=== PATIENT | female | born 1935 | race Caucasian/White ===

== ENCOUNTER 2016-07-13 09:39 | Inpatient (IN) | payer MEDICARE, BC ==
[2016-07-13] MEDS ORDERED: NS 0.9% 1000 ML* 1,000 ML IV ONE ×2 (10:45→22:01)
[2016-07-13] MEDS ORDERED: Pantoprazole IV* 40 MG IV ONE (10:46)
[2016-07-13] MEDS ORDERED: Ondansetron INJ* 2 MG/ML VIAL IV ONE (10:46)
[2016-07-13 11:02] LABS: Hematocrit 48 % (35-47); Hemoglobin 16.2 g/dl (12.0-16.0); Mean Corpuscular HGB Conc 34 g/dl (31-36); Mean Corpuscular Hemoglobin 32 pg (27-31); Mean Corpuscular Volume 93 fL (80-97); Mean Platelet Volume 8 um3 (7.4-10.4); Red Blood Count 5.13 10^6/ul (4.0-5.4); Red Cell Distribution Width 13 % (10.5-15); White Blood Count 17.2 10^3/ul (3.5-10.8)
--- NOTE | 2016-07-13 11:06 | RAD ---
HISTORY: Chest pain COMPARISONS: None VIEWS:1: Single frontal portable view of the chest at 10:50 AM FINDINGS: LINES AND TUBES: None. CARDIOMEDIASTINAL SILHOUETTE: The cardiomediastinal silhouette is normal for portable technique. PLEURA: The costophrenic angles are sharp. No pleural abnormalities are noted. LUNG PARENCHYMA: The lungs are clear. ABDOMEN: There is a very large hiatal hernia BONES AND SOFT TISSUES: No bone or soft tissue abnormalities are noted. IMPRESSION: THERE IS A VERY LARGE HIATAL HERNIA
[2016-07-13 11:10] LABS: Troponin I 0.02 ng/mL (<0.04)
[2016-07-13 11:11] LABS: Albumin 4.8 g/dL (3.2-5.2); BUN/Creatinine Ratio 17.2 (8-20); C Reactive Protein 5.1 mg/L (< 5.00); Calcium 10.1 mg/dL (8.6-10.3); EGFR African American 80.8 (>60); EGFR Non-African American 62.8 (>60); Globulin 3.3 g/dL (2-4); Potassium 3.5 mmol/L (3.5-5.0); Total Bilirubin 0.9 mg/dL (0.2-1.0); Total Protein 8.1 g/dL (6.4-8.9)
[2016-07-13] MEDS: Heparin VIAL(*) 5000 UNITS/ML VIAL (FIVE THOUSAND) SUBCUT SCH ×2 (14:23→23:38)
--- NOTE | 2016-07-13 17:14 | HP ---
HOSPITAL MEDICINE HISTORY AND PHYSICAL: DATE OF ADMISSION: 07/13/16 PRIMARY CARE PHYSICIAN: Dr. Fairchild. ATTENDING PHYSICIAN: Dr. Azra Weir *(dictation provided by Keshia Holder NP) . CHIEF COMPLAINT: Nausea and vomiting. HISTORY OF PRESENT ILLNESS: Ms. Lamar is a 80-year-old female with a past medical history of hypothyroidism and dementia, who presents to the hospital on 07/13/16 with concern for nausea and vomiting. Ms. Lamar states that she first began to feel unwell on Monday. She had nausea with vomiting. She was able to eat on Monday but has not had any food since Monday morning at breakfast. She is able to keep water down. She denies any fevers, chills. She denies diarrhea. The patient's daughter, who is the healthcare proxy and lives next door, helps to care for her, noted that she was quite nauseous with unrelenting vomiting and therefore brought her to the emergency room. In the emergency room, Ms Lamar is also now complaining of left sided chest pain. She states that it is on the left side of her chest and is worse with vomiting. She is not able to express if anything alleviates the pain. Her troponin is normal and her EKG does not demonstrate any ischemic changes. Ms. Lamar has a leukocytosis with a white blood cell count of 17.2, as well as the lactic acidosis with a lactic acid of 4.4. Her CRP was actually normal at 5.10. Her vitals show a mild tachycardia with heart rate running around 105. She is not febrile. Her blood pressure is stable. I also note that her chest x -ray shows a large hiatal hernia. There is no previous x-ray to compare with. PAST MEDICAL HISTORY: 1. Dementia. 2. Hypothyroidism. 3. Right and left knee surgery. 4. Foot surgery, unknown type. MEDICATIONS: 1. Cholecalciferol 2000 units p.o. daily. 2. Coenzyme Q10 200 mg p.o. daily. 3. Ibuprofen 200 mg p.o. daily. 4. Levothyroxine 125 mcg p.o. daily. 5. Namenda 5 mg p.o. b.i.d. 6. Mirtazapine 15 mg p.o. at bedtime. 7. Risperidone 2.5mg mg p.o. at bedtime. ALLERGIES: No known drug allergies. FAMILY HISTORY: The patient has dementia. Her daughter who is at the bedside states that she has had multiple siblings, who related to complications of smoking. She is not sure what took the patient's parents' lives. SOCIAL HISTORY: No report of alcohol, tobacco, or drug use. The patient lives alone but next door to her daughter, Aleida Lamar, who is the healthcare proxy. She also has assistance from a couple who live upstairs. REVIEW OF SYSTEMS: Constitutional: No fevers, no chills, no unintended weight loss. Cardiac: Positive for chest pain. No edema. Respiratory: No cough, hemoptysis, or shortness of breath. GI: Positive for nausea and vomiting. No diarrhea, no abdominal pain. : No gross hematuria or dysuria. Neuro: No focal weakness or sensory loss. Eyes: No visual complaints. ENT: No dysphagia. Musculoskeletal: No arthralgias or myalgias. Skin: No rashes or lesions. Psych: No depression or anxiety. PHYSICAL EXAMINATION GENERAL: Ms. Lamar is sitting on the bed. She appears mildly uncomfortable and states that her back hurts related to lying in the bed, but she is in no acute distress. VITAL SIGNS: Blood pressure 134/106, heart rate 103, temperature 97.4, respiratory rate 19, O2 saturation 98% on room air. LUNGS: Clear to auscultation bilaterally with diminishment on the left. HEART: S1, S2. No murmur, rub, or gallop, and regular. ABDOMEN: Soft, nontender with bowel sounds positive x4. EXTREMITIES: No cyanosis or edema. NEURO: She is alert and oriented x3, although she seems to be a little bit forgetful around details. She moves all extremities equally. There is no facial asymmetry or focal weakness. Extraocular movements are intact. SKIN: Intact. DIAGNOSTIC STUDIES/LAB DATA: Sodium 135, potassium 3.5, chloride 95, serum bicarbonate 26, BUN 15, creatinine 0.87, glucose 208, lactic acid 4.4. CRP 5.10. Troponin 0.02. WBC 17.2, hemoglobin 16.2, hematocrit 48, platelet count 307. Chest x-ray shows a large hiatal hernia. ASSESSMENT AND PLAN: Ms. Lamar is a 80-year-old female with past medical history of dementia and hypothyroidism, who presented to the hospital today on 07/13/16 with concern for nausea and vomiting. Our plans will be for observation in the hospital for the followin. Nausea and vomiting. The patient does have an associated leukocytosis, tachycardia, and lactic acidosis. I also note that her hemoglobin and hematocrit appear concentrated. I suspect this is all related to dehydration in the setting of what is likely to be gastroenteritis. She is afebrile. She is tolerating small amount of oral intake at this time. Plan will be for IV hydration, symptomatic management of her nausea with Zofran and other agents as needed, and slow advancement of diet. 2. Hiatal hernia. This is new or at least previously unidentified. The patient is not a very good historian related to her dementia, but does not report a history of heartburn. This could be contributing to her symptoms of left sided discomfort. At this point, I doubt it is contributing to her symptoms of nausea and vomiting given that these symptoms are new over the past two days. However, will continue to monitor and involve GI as needed. 3. Hyperglycemia. The patient has no history of diabetes. We will add on a hemoglobin A1c. 4. Hypothyroidism. Continue levothyroxine. We can convert to IV form if the patient is unable to tolerate oral intake. 5. Dementia. Plan for supportive care and continue Namenda. 6. DVT prophylaxis. With heparin subcu. 7. Disposition. To the medical floor. TIME SPENT: Approximately 60 minutes was spent on the admission of this patient , more than half time spent with her and her daughter at the bedside reviewing the events leading up to this hospitalization, performing the physical examination, and reviewing the plan of care. KESHIA HOLDER NP CC: Dr. Fairchild * [id number]/[facility] #: [id number] SAM
--- NOTE | 2016-07-13 18:42 | ED ---
Ketan Bee Billy, scribed for Timbo Talley MD on 07/13/16 at 1058 . Complex/Multi-Sys Presentation - HPI Summary HPI Summary: Patient is a 80 year-old female coming to [facility] for evaluation of chest pain and epigastric pain for the last 2-3 days. She has also had several episodes of nausea and vomiting. Her pain is worse after an episode of vomiting. She was unable to describe her pain when asked. Denies any changes in BM, denies any diarrhea or blood in the stool. - History Of Current Complaint Chief Complaint: EDNauseaVomitDiarrh Time Seen by Provider: 07/13/16 10:27 Hx Obtained From: Patient Onset/Duration: Gradual Onset, Lasting Days, Still Present Timing: Intermittent, Lasting: Severity Currently: Moderate Severity Initially: Moderate Location: Pain At: - chest, epigastrium Aggravating Factor(s): vomiting Alleviating Factor(s): none Associated Signs And Symptoms: Positive: Chest Pain, Nausea, Vomiting, Abdominal Pain. Negative: Diarrhea - Allergies/Home Medications Allergies/Adverse Reactions: Allergies Allergy/AdvReac Type Severity Reaction Status Date / Time No Known Allergies Allergy Verified 07/13/16 10:28 Home Medications: Home Medications Cholecalciferol [Vitamin D] 2,000 unit PO DAILY 07/13/16 [History Confirmed ] Coenzyme Q10 (Ubidecarenone) [Coq-10] 200 mg PO DAILY 07/13/16 [History Confirmed 07/13/16] Ibuprofen [Ibuprofen 200 MG] 200 mg PO BID 07/13/16 [History Confirmed 07/13/16] Levothyroxine TAB* [Synthroid 125 MCG TAB*] 125 mg PO DAILY 07/13/16 [History Confirmed 07/13/16] Memantine TAB* [Namenda TAB*] 5 mg PO BID 07/13/16 [History Confirmed 07/13/16] Mirtazapine TAB* [Remeron TAB*] 15 mg PO BEDTIME 07/13/16 [History Confirmed ] risperiDONE TAB* [Risperdal*] 2.5 mg PO BEDTIME 07/13/16 [History Confirmed ] PMH/Surg Hx/FS Hx/Imm Hx Endocrine/Hematology History: Reports: Hx Thyroid Disease Neurological History: Reports: Hx Dementia Psychiatric History: Reports: Hx Anxiety Infectious Disease History: No Infectious Disease History: Denies: Traveled Outside the [place] in Last 30 Days - Family History Known Family History: Negative: Cardiac Disease, Hypertension, Diabetes - Social History Alcohol Use: None Substance Use Type: Reports: None Smoking Status (MU): Never Smoked Tobacco Review of Systems Negative: Fever Positive: Chest Pain Positive: Abdominal Pain, Vomiting, Nausea All Other Systems Reviewed And Are Negative: Yes Physical Exam Triage Information Reviewed: Yes Vital Signs On Initial Exam: Initial Vitals Temp Pulse Resp BP Pulse Ox 97.6 F 111 16 164/100 97 07/13/16 09:40 07/13/16 09:40 07/13/16 09:40 07/13/16 09:40 07/13/16 09:40 Vital Signs Reviewed: Yes Appearance: Positive: Well-Appearing, No Pain Distress Skin: Positive: Warm, Skin Color Reflects Adequate Perfusion, Dry Head/Face: Positive: Normal Head/Face Inspection Eyes: Positive: Normal ENT: Positive: Normal ENT inspection Neck: Positive: Supple, Nontender Respiratory/Lung Sounds: Positive: Clear to Auscultation Cardiovascular: Positive: RRR Abdomen Description: Positive: Soft, Other: - Tender to the epigastrium. She is producing a small amount of dark, brown vomitus. Musculoskeletal: Positive: Normal Neurological: Positive: Normal, Sensory/Motor Intact, Alert, Oriented to Person Place, Time Psychiatric: Positive: Affect/Mood Appropriate - [place] Coma Scale Coma Scale Total: 14 Diagnostics - Vital Signs Vital Signs Temp Pulse Resp BP Pulse Ox 07/13/16 10:20 97.4 F 108 16 162/105 96 07/13/16 10:12 106 20 96 07/13/16 10:10 162/105 07/13/16 09:40 97.6 F 111 16 164/100 97 - Laboratory Lab Results: Lab Results 07/13/16 07/13/16 07/13/16 Range/Units 10:30 10:30 10:30 WBC 17.2 H (3.5-10.8) 10^3/ul RBC 5.13 (4.0-5.4) 10^6/ul Hgb 16.2 H (12.0-16.0) g/dl Hct 48 H (35-47) % MCV 93 (80-97) fL MCH 32 H (27-31) pg MCHC 34 (31-36) g/dl RDW 13 (10.5-15) % Plt Count 307 (150-450) 10^3/ul MPV 8 (7.4-10.4) um3 Neut % (Auto) 93.7 H (38-83) % Lymph % (Auto) 2.7 L (25-47) % Andrew % (Auto) 3.5 (1-9) % Eos % (Auto) 0 (0-6) % Baso % (Auto) 0.1 (0-2) % Absolute Neuts (auto) 16.1 H (1.5-7.7) 10^3/ul Absolute Lymphs (auto) 0.5 L (1.0-4.8) 10^3/ul Absolute Monos (auto) 0.6 (0-0.8) 10^3/ul Absolute Eos (auto) 0 (0-0.6) 10^3/ul Absolute Basos (auto) 0 (0-0.2) 10^3/ul Absolute Nucleated RBC 0 10^3/ul Nucleated RBC % 0 Sodium 135 (133-145) mmol/L Potassium 3.5 (3.5-5.0) mmol/L Chloride 95 L (101-111) mmol/L Carbon Dioxide 26 (22-32) mmol/L Anion Gap 14 H (2-11) mmol/L BUN 15 (6-24) mg/dL Creatinine 0.87 (0.51-0.95) mg/dL Est GFR ( Amer) 80.8 (>60) Est GFR (Non-Af Amer) 62.8 (>60) BUN/Creatinine Ratio 17.2 (8-20) Glucose 208 H (70-100) mg/dL Lactic Acid 4.4 H* (0.5-2.0) mmol/L Calcium 10.1 (8.6-10.3) mg/dL Total Bilirubin 0.90 (0.2-1.0) mg/dL AST 18 (13-39) U/L ALT 13 (7-52) U/L Alkaline Phosphatase 74 (34-104) U/L Troponin I 0.02 (<0.04) ng/mL C-Reactive Protein 5.10 H (< 5.00) mg/L Total Protein 8.1 (6.4-8.9) g/dL Albumin 4.8 (3.2-5.2) g/dL Globulin 3.3 (2-4) g/dL Albumin/Globulin Ratio 1.5 (1-3) Lipase 14 (11.0-82.0) U/L Result Diagrams: 07/13/16 10:30 07/13/16 10:30 Lab Statement: Any lab studies that have been ordered have been reviewed, and results considered in the medical decision making process. - Radiology CXR Radiology Interpretation Completed By: Radiologist - THERE IS A VERY LARGE HIATAL HERNIA - EKG 0954 EKG Interpretation: sinus tachycardia 105 bpm, no STEMI Complex Multi-Symp Course/Dx Course Of Treatment: Rocío Lamar was C/O significant epigastric pain and has a history of hiatal hernia. HerBUN is normal but I am concerned for a GI bleed. - Diagnoses Provider Diagnoses: Abdominal pain Discharge - Discharge Plan Condition: Stable Disposition: ADMITTED TO [facility] The documentation as recorded by the Ketan ocasio Billy accurately reflects the service I personally performed and the decisions made by me, Timbo Talley MD.
[2016-07-13 20:00] LABS: Urine Bacteria Absent (Absent); Urine Bilirubin Negative (Negative); Urine Glucose 1+(50 mg/dL) (Negative); Urine Nitrite Negative (Negative)
[2016-07-13] MEDS: risperiDONE TAB* 1 MG PO SCH (23:36)
[2016-07-13] MEDS: Mirtazapine TAB* 15 MG PO SCH (23:36)
[2016-07-13] MEDS: Memantine TAB* 5 MG PO SCH (23:41)
[2016-07-14] MEDS: Heparin VIAL(*) 5000 UNITS/ML VIAL (FIVE THOUSAND) SUBCUT SCH ×3 (06:07→20:24)
[2016-07-14] MEDS: Levothyroxine TAB* 125 MCG TAB PO SCH (06:29)
[2016-07-14 07:01] LABS: Hematocrit 38 % (35-47); Hemoglobin 12.6 g/dl (12.0-16.0); Mean Corpuscular HGB Conc 33 g/dl (31-36); Mean Corpuscular Hemoglobin 31 pg (27-31); Mean Corpuscular Volume 94 fL (80-97); Mean Platelet Volume 8 um3 (7.4-10.4); Red Blood Count 4.04 10^6/ul (4.0-5.4); Red Cell Distribution Width 13 % (10.5-15); White Blood Count 16.5 10^3/ul (3.5-10.8)
--- NOTE | 2016-07-14 07:07 | PN ---
Progress Note - Progress Note Note: Called by nikita MANZANO with concern for coffee ground emesis and urinary retention. Patient noted to be vomiting small amounts of coffee ground emesis with each attempt at oral intake. Plan to order a gastric occult blood. Protonix 40mg IV ordered daily. May be beneficial to involve GI tomorrow if UGI bleeding is suspected especially in setting of large hiatal hernia of unclear chronicity. As noted previously, patient's Hgb is 14. Patient plans to attempt to void a second time, if she is not succesful, plan to place a malagon catheter.
[2016-07-14] MEDS: Pantoprazole IV* 40 MG IV SCH (07:10)
[2016-07-14 07:18] LABS: BUN/Creatinine Ratio 30.3 (8-20); Calcium 8.6 mg/dL (8.6-10.3); EGFR African American 111.1 (>60); EGFR Non-African American 86.4 (>60); Potassium 3.5 mmol/L (3.5-5.0)
[2016-07-14] MEDS: Memantine TAB* 5 MG PO SCH ×2 (08:42→22:10)
[2016-07-14] MEDS: NS 0.9% 1000 ML* 1,000 ML IV SCH ×2 (13:13→23:08)
--- NOTE | 2016-07-14 13:51 | RAD ---
INDICATION: Nausea and vomiting COMPARISON: None TECHNIQUE: A single view of the abdomen is submitted. FINDINGS: Bones: There are no acute bony findings. Soft tissues: The soft tissues appear normal. The psoas margins are sharp. Bowel gas pattern: Normal Calcifications: There are no abnormal calcifications. Other: None IMPRESSION: NO ACUTE DIAGNOSTIC FINDINGS.
--- NOTE | 2016-07-14 16:58 | PN ---
Subjective Date of Service: 07/14/16 Interval History: Patient feeling very weak with nausea and vomiting. Objective Active Medications: Heparin Sodium (Porcine) (Heparin Vial(*)) 5,000 units SUBCUT Q8HR [facility] Last Admin: 07/14/16 13:03 Dose: Not Given Sodium Chloride (Ns 0.9% 1000 Ml*) 1,000 mls @ 125 mls/hr IV PER RATE [facility] Last Admin: 07/14/16 13:13 Dose: 125 mls/hr Levothyroxine Sodium (Synthroid Tab*) 125 mcg PO 0600 [facility] Last Admin: 07/14/16 06:29 Dose: 125 mcg Memantine (Namenda Tab*) 5 mg PO BID [facility] Last Admin: 07/14/16 08:42 Dose: 5 mg Mirtazapine (Remeron Tab*) 15 mg PO BEDTIME [facility] Last Admin: 07/13/16 23:36 Dose: 15 mg Ondansetron HCl (Zofran Inj*) 4 mg IV Q6H PRN PRN Reason: NAUSEA Pantoprazole Sodium (Protonix Iv*) 40 mg IV DAILY [facility] Last Admin: 07/14/16 07:10 Dose: 40 mg Risperidone (Risperdal*) 2.5 mg PO BEDTIME [facility] Last Admin: 07/13/16 23:36 Dose: 2.5 mg Vital Signs 07/13/16 07/13/16 07/13/16 18:24 20:00 23:22 Temperature 99.2 F 99.5 F Pulse Rate 109 115 Respiratory 16 16 Rate Blood Pressure 152/91 157/91 (mmHg) O2 Sat by Pulse 93 Oximetry 07/14/16 07/14/16 07/14/16 03:31 08:23 11:02 Temperature 98.4 F 99.7 F 99.8 F Pulse Rate 116 116 111 Respiratory 16 16 19 Rate Blood Pressure 146/79 147/82 164/86 (mmHg) O2 Sat by Pulse 92 91 93 Oximetry 07/14/16 07/14/16 12:50 16:08 Temperature 98.2 F 99.4 F Pulse Rate 112 Respiratory Rate Blood Pressure 142/82 (mmHg) O2 Sat by Pulse 97 Oximetry Oxygen Devices in Use Now: None Appearance: Elderly woman lying in bed weak and pale but in NAD Eyes: No Scleral Icterus Ears/Nose/Mouth/Throat: - - Dry MM Neck: No Thyroid Enlargement, Masses Respiratory: Clear to Auscultation Cardiovascular: - - S1S21 teresa Abdominal: NL Sounds; No Tenderness; No Distention, No Hepatosplenomegaly Lymphatic: No Cervical Adenopathy Extremities: No Clubbing, Cyanosis Skin: No Rash or Ulcers Neurological: Alert and Oriented x 3 Result Diagrams: 07/14/16 06:16 07/14/16 06:16 Additional Lab and Data: Lab Results 07/13/16 07/13/16 07/13/16 Range/Units 10:30 10:30 10:30 WBC 17.2 H (3.5-10.8) 10^3/ul RBC 5.13 (4.0-5.4) 10^6/ul Hgb 16.2 H (12.0-16.0) g/dl Hct 48 H (35-47) % MCV 93 (80-97) fL MCH 32 H (27-31) pg MCHC 34 (31-36) g/dl RDW 13 (10.5-15) % Plt Count 307 (150-450) 10^3/ul MPV 8 (7.4-10.4) um3 Neut % (Auto) 93.7 H (38-83) % Lymph % (Auto) 2.7 L (25-47) % Ritchie % (Auto) 3.5 (1-9) % Eos % (Auto) 0 (0-6) % Baso % (Auto) 0.1 (0-2) % Absolute Neuts (auto) 16.1 H (1.5-7.7) 10^3/ul Absolute Lymphs (auto) 0.5 L (1.0-4.8) 10^3/ul Absolute Monos (auto) 0.6 (0-0.8) 10^3/ul Absolute Eos (auto) 0 (0-0.6) 10^3/ul Absolute Basos (auto) 0 (0-0.2) 10^3/ul Absolute Nucleated RBC 0 10^3/ul Nucleated RBC % 0 Sodium 135 (133-145) mmol/L Potassium 3.5 (3.5-5.0) mmol/L Chloride 95 L (101-111) mmol/L Carbon Dioxide 26 (22-32) mmol/L Anion Gap 14 H (2-11) mmol/L BUN 15 (6-24) mg/dL Creatinine 0.87 (0.51-0.95) mg/dL Est GFR ( Amer) 80.8 (>60) Est GFR (Non-Af Amer) 62.8 (>60) BUN/Creatinine Ratio 17.2 (8-20) Glucose 208 H (70-100) mg/dL Lactic Acid 4.4 H* (0.5-2.0) mmol/L Calcium 10.1 (8.6-10.3) mg/dL Total Bilirubin 0.90 (0.2-1.0) mg/dL AST 18 (13-39) U/L ALT 13 (7-52) U/L Alkaline Phosphatase 74 (34-104) U/L Troponin I 0.02 (<0.04) ng/mL C-Reactive Protein 5.10 H (< 5.00) mg/L Total Protein 8.1 (6.4-8.9) g/dL Albumin 4.8 (3.2-5.2) g/dL Globulin 3.3 (2-4) g/dL Albumin/Globulin Ratio 1.5 (1-3) Lipase 14 (11.0-82.0) U/L Microbiology and Other Data: Microbiology 07/13/16 19:26 Gastric Occult Blood - Final Gastric Fluid Assess/Plan/Problems-Billing Assessment: 80 year old woman admitted with intractable N/V who apparently had an episode of coffe ground emesis this morning. - Patient Problems (1) Nausea & vomiting Current Visit: Yes Status: Acute Code(s): R11.2 - NAUSEA WITH VOMITING, UNSPECIFIED SNOMED Code(s): 71002635 Comment: This seems to have improved although she still feels queezy, Continue IVF, Zofran PRN. Check Flu swab. Etiology unclear. (2) Coffee ground emesis Current Visit: Yes Status: Acute Code(s): K92.0 - HEMATEMESIS SNOMED Code( s): 013860510 Comment: One episode this morning but H/H decreased (could be dilutional). Protonix ordered. GI consult. (3) Anemia Current Visit: Yes Status: Acute Code(s): D64.9 - ANEMIA, UNSPECIFIED SNOMED Code(s): 385631483 Comment: May be dilutional but could be from UGI bleed. Serial H/H. (4) Dementia Current Visit: Yes Status: Acute Code(s): F03.90 - UNSPECIFIED DEMENTIA WITHOUT BEHAVIORAL DISTURBANCE SNOMED Code(s): 20203558 Comment: Namenda. Stable. (5) Hypothyroid Current Visit: Yes Status: Acute Code(s): E03.9 - HYPOTHYROIDISM, UNSPECIFIED SNOMED Code(s): 20604619 Comment: Stable. Continue Synthroid. (6) DVT prophylaxis Current Visit: Yes Status: Acute Code(s): MIR2456 - SNOMED Code(s): 819486815 Comment: Sequential compression stockings (7) Full code status Current Visit: Yes Status: Acute Code(s): Z78.9 - OTHER SPECIFIED HEALTH STATUS SNOMED Code(s): 086845763
[2016-07-14 18:04] LABS: Hematocrit 37 % (35-47); Hemoglobin 12.5 g/dl (12.0-16.0)
[2016-07-14] MEDS: Ondansetron INJ* 2 MG/ML VIAL IV PRN (18:18)
[2016-07-14] MEDS: Mirtazapine TAB* 15 MG PO SCH (20:25)
[2016-07-14] MEDS: risperiDONE TAB* 1 MG PO SCH (20:25)
[2016-07-14] MEDS ORDERED: traMADol TAB* 50 MG PO PRN (20:48)
[2016-07-14] MEDS ORDERED: Morphine INJ* 2 MG/ML 1 ML SYRINGE IV PRN (20:48)
[2016-07-14] MEDS ORDERED: amLODIPine TAB* 5 MG PO ONE (20:49)
[2016-07-14] MEDS: Acetaminophen TAB* 325 MG PO SCH (23:04)
[2016-07-14 23:12] LABS: Hematocrit 34 % (35-47); Hemoglobin 11.5 g/dl (12.0-16.0)
--- NOTE | 2016-07-14 23:39 | CONS ---
GASTROENTEROLOGY CONSULT DATE: 07/14/16 CONSULTING PHYSICIAN: Arias Gamble REASON FOR CONSULTATION: Coffee-ground emesis and repeated nausea and vomiting since midday, 07/12/16. HISTORY: This 80-year-old woman who lives in her house, next door to her daughter Aleida (who is her proxy), started to have epigastric distress on and began to vomit the next day. Apparently, that has gone on persistently. She has not had any fever or diarrhea. Some of the vomiting was dark yesterday and in the night. She has not had any emesis in the last 12 to 14 hours. She apparently has not had a long-term history of gastrointestinal problems and has never been for workup for any problem. She does not take any GI related medications. Her daughter says that she is able to prepare her own breakfast, but otherwise has others bring food in. She has not had any GI complaints. Her file in the hospital EMR does not contain any gastrointestinal imaging tests. She had a screening colonoscopy in May 2005, which per report was normal. PAST MEDICAL HISTORY: 1. Dementia - on Namenda 2. History of anxiety - on risperidone 3. Hypothyroidism - on replacement, many years 4. Status post bunion surgery, 2000 MEDICATIONS: Outpatient: Levothyroxine 125 mcg, Namenda 5 b.i.d, Mirtazapine 15 at bedtime, Risperidone 2.5 HS Cholecalciferol 2000 units QD SOCIAL HISTORY: She is and lives in a house next door to her daughter who is her proxy. She also has a granddaughter, living in town. She does not drink or smoke. Currently her daughter says the patient can ambulate in her home without a walker, but uses one sometimes when she goes out. REVIEW OF SYSTEMS: No history of GA, arrhythmias, syncope, hemoptysis, asthma, jaundice, abdominal surgery, psoriasis, multiple sclerosis, seizures, or recent falls or fractures. PHYSICAL EXAM: General: She is an elderly woman in bed with her eyes closed, not participating in conversation unless she is directly stimulated and then she will say a few words and lapse back to being passive. She does not appear to be toxic and her skin is warm and dry. HEENT exam is otherwise unremarkable. There is no facial droop. She has no adenopathy. Lungs: Clear , though the effort is poor. Heart: Sounds normal. Breast: Exam deferred. Abdomen: Mildly rounded and likely silent. Abdomen is also quite soft, nontender. Rectal: Deferred (later bluish mildly distended hemorrhoids 2/3rds circumferential) Extremities: Show no edema. DIAGNOSTIC STUDIES/LAB DATA: White count 16.5, hemoglobin 12.6, hematocrit 38, MCV 94, and platelets 220. BUN 20 and creatinine is 0.66. LFTs yesterday normal. AST 18, ALT 13, and alk phos 74. Radiology review - chest x-ray yesterday showed a large hiatal hernia and abdominal films today showed a normal gas pattern. IMPRESSION: This 80-year-old who has had nonspecific illness over the last 2 days with malaise and then vomiting that progressed to some coffee-ground emesis about 12 hours ago. She has not had any diarrhea and has not run a fever. The stool is unremarkable per report. These all make an infection or substantial GI bleed less likely. She is known to have a large hiatal hernia though no chronic dyspeptic history. With the an unidentified stimulus could set up situation where vomiting starts and then become persisting cycle. From the moment, she has been placed empirically on Protonix and clear liquids and we could stay with that and see how her course runs over the next 18 to 24 hours. If she settles down then continuing a PPI for a few months, then possibly every other month with tapering schedule would be reasonable as opposed to pursuing invasive workup, which in that case would not likely influence the plan. [id number]/[facility] #: [id number] SAM
[2016-07-15] MEDS: Ondansetron INJ* 2 MG/ML VIAL IV PRN (00:22)
[2016-07-15 05:58] LABS: Hematocrit 34 % (35-47); Hemoglobin 11.4 g/dl (12.0-16.0); Mean Corpuscular HGB Conc 34 g/dl (31-36); Mean Corpuscular Hemoglobin 32 pg (27-31); Mean Corpuscular Volume 94 fL (80-97); Mean Platelet Volume 8 um3 (7.4-10.4); Red Blood Count 3.59 10^6/ul (4.0-5.4); Red Cell Distribution Width 13 % (10.5-15); White Blood Count 11.1 10^3/ul (3.5-10.8)
[2016-07-15 06:12] LABS: BUN/Creatinine Ratio 26.4 (8-20); Calcium 7.9 mg/dL (8.6-10.3); EGFR African American 143.1 (>60); EGFR Non-African American 111.3 (>60); Potassium 3.1 mmol/L (3.5-5.0)
[2016-07-15] MEDS: Levothyroxine TAB* 125 MCG TAB PO SCH (07:57)
[2016-07-15] MEDS: Heparin VIAL(*) 5000 UNITS/ML VIAL (FIVE THOUSAND) SUBCUT SCH ×2 (07:57→14:32)
--- NOTE | 2016-07-15 08:41 | PN ---
Subjective Date of Service: 07/15/16 Interval History: Patient seen this morning with daughter and friend at bedside. Patient still she is still having some nausea, no emesis. Seems to be tolerating clears for now. Still with some vague epigastric pain. No fever or chills. Family History: Unchanged from Admission Social History: Unchanged from Admission Past Medical History: Unchanged from Admission Objective Active Medications: Acetaminophen (Tylenol Tab*) 975 mg PO BID THIERRY Amlodipine Besylate (Norvasc Tab*) 5 mg PO DAILY THIERRY Heparin Sodium (Porcine) (Heparin Vial(*)) 5,000 units SUBCUT Q8HR THIERRY Sodium Chloride (Ns 0.9% 1000 Ml*) 1,000 mls @ 125 mls/hr IV PER RATE THIERRY Potassium Chloride (Potassium Chloride 10 Meq/50 Ml Ivpremix*) 10 meq in 50 mls @ 50 mls/hr IV Q1H THIERRY Levothyroxine Sodium (Synthroid Tab*) 125 mcg PO 0600 THIERRY Memantine (Namenda Tab*) 5 mg PO BID THIERRY Mirtazapine (Remeron Tab*) 15 mg PO BEDTIME THIERRY Morphine Sulfate (Morphine Inj (Syringe)*) 2 mg IV Q4H PRN Ondansetron HCl (Zofran Inj*) 4 mg IV Q6H PRN Pantoprazole Sodium (Protonix Iv*) 40 mg IV DAILY [facility] Risperidone (Risperdal*) 2.5 mg PO BEDTIME THIERRY Tramadol HCl (Ultram*) 50 mg PO Q6H PRN Vital Signs 07/14/16 07/14/16 07/14/16 20:13 20:40 23:34 Temperature 98.1 F 98.7 F Pulse Rate 102 109 Respiratory 20 16 16 Rate Blood Pressure 171/107 168/87 (mmHg) O2 Sat by Pulse 95 91 Oximetry 07/15/16 03:13 Temperature 98.4 F Pulse Rate 108 Respiratory 16 Rate Blood Pressure 168/91 (mmHg) O2 Sat by Pulse 92 Oximetry Oxygen Devices in Use Now: None Appearance: Elderly, F, laying in bed in NAD Eyes: No Scleral Icterus Ears/Nose/Mouth/Throat: Mucous Membranes Moist Neck: NL Appearance and Movements; NL JVP Respiratory: Symmetrical Chest Expansion and Respiratory Effort - Bronchial BS in L base, otherwise clear Cardiovascular: NL Sounds; No Murmurs; No JVD, - - Mild tachy Abdominal: - - Soft, non-distended, mild TTP in epigastric area, BS+, no rebound /guarding Extremities: No Edema Skin: No Rash or Ulcers Neurological: - - Alert, oriented, no focal deficits Result Diagrams: 07/15/16 05:31 07/15/16 05:31 Additional Lab and Data: Lab Results 07/13/16 07/13/16 07/13/16 Range/Units 10:30 10:30 10:30 WBC 17.2 H (3.5-10.8) 10^3/ul RBC 5.13 (4.0-5.4) 10^6/ul Hgb 16.2 H (12.0-16.0) g/dl Hct 48 H (35-47) % MCV 93 (80-97) fL MCH 32 H (27-31) pg MCHC 34 (31-36) g/dl RDW 13 (10.5-15) % Plt Count 307 (150-450) 10^3/ul MPV 8 (7.4-10.4) um3 Neut % (Auto) 93.7 H (38-83) % Lymph % (Auto) 2.7 L (25-47) % [place] % (Auto) 3.5 (1-9) % Eos % (Auto) 0 (0-6) % Baso % (Auto) 0.1 (0-2) % Absolute Neuts (auto) 16.1 H (1.5-7.7) 10^3/ul Absolute Lymphs (auto) 0.5 L (1.0-4.8) 10^3/ul Absolute Monos (auto) 0.6 (0-0.8) 10^3/ul Absolute Eos (auto) 0 (0-0.6) 10^3/ul Absolute Basos (auto) 0 (0-0.2) 10^3/ul Absolute Nucleated RBC 0 10^3/ul Nucleated RBC % 0 Sodium 135 (133-145) mmol/L Potassium 3.5 (3.5-5.0) mmol/L Chloride 95 L (101-111) mmol/L Carbon Dioxide 26 (22-32) mmol/L Anion Gap 14 H (2-11) mmol/L BUN 15 (6-24) mg/dL Creatinine 0.87 (0.51-0.95) mg/dL Est GFR ( Amer) 80.8 (>60) Est GFR (Non-Af Amer) 62.8 (>60) BUN/Creatinine Ratio 17.2 (8-20) Glucose 208 H (70-100) mg/dL Lactic Acid 4.4 H* (0.5-2.0) mmol/L Calcium 10.1 (8.6-10.3) mg/dL Total Bilirubin 0.90 (0.2-1.0) mg/dL AST 18 (13-39) U/L ALT 13 (7-52) U/L Alkaline Phosphatase 74 (34-104) U/L Troponin I 0.02 (<0.04) ng/mL C-Reactive Protein 5.10 H (< 5.00) mg/L Total Protein 8.1 (6.4-8.9) g/dL Albumin 4.8 (3.2-5.2) g/dL Globulin 3.3 (2-4) g/dL Albumin/Globulin Ratio 1.5 (1-3) Lipase 14 (11.0-82.0) U/L Microbiology and Other Data: Microbiology 07/13/16 19:26 Gastric Occult Blood - Final Gastric Fluid Assess/Plan/Problems-Billing Assessment: 80 year old woman admitted with intractable N/V who apparently had an episode of coffee ground emesis this morning. - Patient Problems (1) Nausea & vomiting Current Visit: Yes Comment: ?relative to hiatal hernia. Continue clears for now. Continue IVF, Zofran PRN. Flu negative. (2) Anemia Current Visit: Yes Comment: Hct stable at 34, continue to monitor. (3) HTN (hypertension) Current Visit: Yes Comment: Norvasc started evening on 07/14, continue for now , monitor BPs (4) Coffee ground emesis Current Visit: Yes Comment: Appreciate GI consult. Continue PPI, clears for now. No intervention at this time. (5) Dementia Current Visit: Yes Comment: Namenda. (6) Hypothyroid Current Visit: Yes Comment: Continue Synthroid. (7) DVT prophylaxis Current Visit: Yes Comment: Sequential compression stockings (8) Full code status Current Visit: Yes
[2016-07-15] MEDS: Pantoprazole IV* 40 MG IV SCH (08:42)
[2016-07-15] MEDS: Acetaminophen TAB* 325 MG PO SCH (08:42)
[2016-07-15] MEDS: Memantine TAB* 5 MG PO SCH (08:42)
[2016-07-15] MEDS: NS 0.9% 1000 ML* 1,000 ML IV SCH (08:52)
[2016-07-15] MEDS ORDERED: amLODIPine TAB* 5 MG PO SCH (09:00)
[2016-07-15] MEDS: KCL 10 MEQ/50 ML IVPREMIX* 10 MEQ/50 ML BAG IV SCH ×3 (10:38→14:23)
[2016-07-15 11:19] LABS: Hematocrit 31 % (35-47); Hemoglobin 10.5 g/dl (12.0-16.0)
[2016-07-15] MEDS ORDERED: Senna TAB PO SCH (13:00)
[2016-07-15] MEDS ORDERED: Docusate CAP* 100 MG PO SCH (13:00)
--- NOTE | 2016-07-15 13:29 | CONSULT ---
Consult Consult: Patient was seen and examined, please refer to full consultation report. Impression/Plan: Prolapsed internal hemorrhoids with no evidence of bleeding. Will try Anusol HC suppositories for symptomatic relief. Upper GI bleed, management per GI and medicine, likely needs an EGD for evaluation. Thank you for this consultation
[2016-07-15] MEDS ORDERED: KCL 10 MEQ/50 ML IVPREMIX* 10 MEQ/50 ML BAG ONE (14:20)
[2016-07-15] MEDS ORDERED: Midazolam* 1 MG/ML 10 ML VIAL (10 MG) ONE (16:10)
[2016-07-15] MEDS ORDERED: Meperidine SYRINGE* 50 MG/ML ONE (16:10)
--- NOTE | 2016-07-15 16:49 | CONS ---
CC: Dr. Clayton Lamar; Dr. Richards CONSULTATION REPORT: DATE OF CONSULT: 07/15/16 PATIENT OF: Dr. Clayton Lamar. REFERRED TO: Dr. Ishan Alvarez. REASON FOR CONSULT: Rectal prolapse. HISTORY OF PRESENT ILLNESS: Ms. Lamar is a pleasant 80-year-old female, who was admitted to the hospital on 07/14/16, with what appeared to be worsening nausea and vomiting. The patient presented to the emergency room yesterday with complaints of feeling unwell in general and specifically with multiple episodes of nausea and vomiting. The patient had evaluation in the emergency room and was found to have leukocytosis and also had a cardiac workup done given her recent complaints of left- sided chest pain and was found to have normal EKG with no ischemic changes. Given her ongoing nausea and vomiting and her findings of leukocytosis, the patient was admitted for further evaluation by medical staff. Upon further question of the patient, she admits that she does have occasional episodes of nausea and vomiting but denies any abdominal pain or changes in bowel habits. After she was admitted, the patient had an episode of coffee ground emesis and was found to have further decrease in her hemoglobin and hematocrit consistent with possible upper GI bleed for which Dr. Richards was asked for consultation. The patient has a significant medical history consistent for dementia and hypothyroidism. She has done very well at home and she still lives independently with her daughter helping her who lives close by. This morning, according to the patient's daughter, she had a large soft bowel movement during which she noticed small prolapse in her rectum. She denied any similar episodes in the past or any history of hemorrhoids. She also denies any bright red blood per rectum. The patient herself notes some mild discomfort in the rectal area but denies any burning sensation, significant pain, or any history of hemorrhoids in the remote past. Given her recent episode of rectal prolapse, we were asked to see the patient for further evaluation. PAST MEDICAL HISTORY: As mentioned above significant for dementia and hypothyroidism. PAST SURGICAL HISTORY: Significant for right and left total knee replacement as well as foot surgery of unknown type. CURRENT MEDICATIONS: Her medications at home include: 1. Cholecalciferol 2000 units p.o. daily. 2. Coenzyme Q10 200 mg p.o. daily. 3. Ibuprofen 200 mg p.o. daily. 4. Synthroid 125 mcg p.o. daily. 5. Namenda 5 mg p.o. b.i.d. 6. Mirtazapine 15 mg p.o. q.h.s. 7. Risperidone 2.5 mg p.o. q.h.s. ALLERGIES: She has no known drug allergies. FAMILY HISTORY: She denies any history of colorectal malignancies. SOCIAL HISTORY: The patient is a nonsmoker who denies alcohol intake. She does live independently, her daughter lives right next door, and she is the healthcare proxy. REVIEW OF SYSTEMS: See HPI, otherwise, negative. She denies any fever, chills , or recent weight loss. No headache, dizziness, or syncope. She did complain of chest pain during her admission but denies any chest pain today or shortness of breath. No cough, hemoptysis, or orthopnea. She admits to nausea and vomiting but denies any changes in her bowel habits, abdominal pain or bleeding per rectum. No flank pain, hematuria, dysuria, or urinary frequency. PHYSICAL EXAM: General: She is a pleasant elderly female who appears comfortable in bed, surrounded by her daughter and two granddaughters, and in no acute distress or discomfort at the time of consultation. Vitals: Her last set of vitals revealed temperature of 97.4, pulse of 107, respirations of 16, O2 sat of 96% on room air, blood pressure of 130/65. HEENT: Sclerae anicteric. PERRLA. EOMs intact. Oropharynx is dry, but no exudate. Neck: Supple. Trachea midline. No cervical adenopathy noted. Lungs: Clear to auscultation bilaterally. It is noted that there are some bowel sounds noted on the lower aspect of the left lung field that would be consistent with a large hiatal hernia. No rales, wheezes, or rhonchi noted. Heart: Regular rate and rhythm. Normal S1 and S2 without rubs, murmurs, or gallops. Back with normal curvature. No CVA tenderness. Abdomen: Soft and nondistended. No tenderness noted throughout the exam. There are no hernias, masses, or hepatosplenomegaly. No guarding, rigidity, or rebound tenderness noted. Extremities: Without clubbing, cyanosis, or edema. Neurologic: Grossly intact. Breast exam: Deferred at this time. Rectal Exam: Rectal exam was performed at bedside with a help of a nurse. Sphincter tone appears to be normal. There is very mild discomfort noted upon digital examination, but no apparent external hemorrhoids noted. The patient was asked to bear down and 2 moderate-sized internal hemorrhoids noted to prolapse, measuring approximately 2 cm in circumference each at the 2 o'clock and 5 o'clock position. There is no ulceration or bleeding noted. Mild tenderness was experienced upon reducing the hemorrhoids back but that was done easily as well. LABORATORY DATA: Her CBC done earlier today revealed a white count of 11,000 which is down from her leukocytosis on admission which was up to 17,000, hemoglobin and hematocrit latest value were 10.5 and 31 respectively. Her chemistry essentially was within normal limits except for a low potassium of 3.1 , which is being replaced by Medicine. IMPRESSION: An elderly female with likely longstanding history of internal hemorrhoids that were prolapsed today during a bowel movement with no evidence of lower GI bleed. PLAN: I went on and discussed with the patient and her daughter the findings of her physical exam. I do not appreciate any significant rectal prolapse at this point. I did ask the patient to bear down and strain on multiple occasions and I was able to appreciate 2 small internal hemorrhoids prolapsing and were easily reduced. There was no evidence of any lower GI bleed or rectal bleed in account to her hemorrhoids. We will treat her conservatively at this point using Anusol suppositories twice daily for symptomatic relief of hemorrhoid, swelling, and irritation. She appears to be comfortable and agreed to our management plan. We will follow her up accordingly. The patient also is being followed by GI given her most recent episode of coffee-ground emesis with possibility of upper GI bleed which I assume will eventually end up with an upper endoscopy some time later today or tomorrow. Thank you for this consultation. RICHIE SNIDER [id number]/[facility] #: [id number] SAM
[2016-07-15 19:02] LABS: Hematocrit 32 % (35-47); Hemoglobin 10.7 g/dl (12.0-16.0); Mean Corpuscular HGB Conc 33 g/dl (31-36); Mean Corpuscular Hemoglobin 32 pg (27-31); Mean Corpuscular Volume 96 fL (80-97); Mean Platelet Volume 7 um3 (7.4-10.4); Red Blood Count 3.37 10^6/ul (4.0-5.4); Red Cell Distribution Width 13 % (10.5-15); White Blood Count 10.9 10^3/ul (3.5-10.8)
[2016-07-15] MEDS ORDERED: Artificial Tear OPHTH.OINT* 3.5 GM RIGHT EYE PRN (19:07)
[2016-07-15] MEDS: Hydrocortisone SUPP* 25 MG SUPP (2.5%) PR SCH (21:49)
[2016-07-15] MEDS: Sucralfate SUSP 1 GM/10 ml 10 ML UDC PO SCH (21:49)
[2016-07-16] MEDS: NS 0.9% 1000 ML* 1,000 ML IV SCH ×3 (01:15→23:29)
[2016-07-16] MEDS: Sucralfate SUSP 1 GM/10 ml 10 ML UDC PO SCH ×4 (02:37→20:19)
[2016-07-16] MEDS: Levothyroxine INJ* 100 MCG/5 ML VIAL IV SCH (05:37)
--- NOTE | 2016-07-16 05:47 | PRO ---
DATE: 07/15/16 REFERRING PHYSICIAN: Arias Gamble PROCEDURE: Upper gastrointestinal endoscopy through to mid duodenum. INDICATION: Coffee-ground emesis with known large hiatal hernia. ENDOSCOPIST: Dr. Richards MEDICATIONS: Midazolam 5, meperidine 25 FINDINGS: She is an elderly woman, very quiet and not speaking spontaneously. She says she has some left upper quadrant distress. She had brought up some coffee- grounds once earlier today and that had happened yesterday also. Informed consent had been obtained from the patient's daughter EGD: Larynx - symmetric, limited views with some coffee-grounds initially present. Esophagus - easily entered and there is a moderate amount of coffee-ground watery secretion. It is regurgitated up and suctioned clear over a few minutes. Active suctioning was carried out in the mouth by the nurse. A large amount of coffee-grounds was suctioned up, probably 250 cc. As the scope went down the lumen there was an increasing amount of granularity and circumferential erosion and then some friability with any touch from the scope, resulting in some oozing. It would stop spontaneously. The EG junction was at about 30 with a turn to the right. It could only be seen after the washing and lavage was complete, which included suctioning out the gastric fundus. There was no stricture and no mass. Stomach - a very large hiatal hernia. Eventually a cleft where the hiatus was located was identified and the scope was manipulated down through it by a long insertion and then tip downward flexion during withdrawal. There was no active bleeding in the stomach per se. The gastric antrum appeared normal and did not have any coffee-ground material in it. Pylorus appeared normal. Duodenum - Pylorus, bulb, and second through fourth portions appeared normal. During withdrawal, the antrum was reevaluated and appeared normal. The upper stomach (which was all HH) was viewed several ways including full insertion and retroflexion. No intrinsic pathology was seen in the stomach. During withdrawal, again the eroded area tapering as one got higher in the esophagus is noted. IMPRESSION: 1. Large hiatal hernia. 2. Severe esophagitis - 3/4ths of the lumen; suspected to be mostly peptic, but probably in some part caustic from medication trapping. 3. GI bleeding - modest. The patient will be managed with continuous PPI infusion, topical Carafate, and elevation, and eventually CT scan and surgical consult. When ready to feed should be done upright and with a pureed diet. [id number]/[facility] #: [id number] SAM
[2016-07-16 07:30] LABS: Hematocrit 31 % (35-47); Hemoglobin 10.6 g/dl (12.0-16.0); Mean Corpuscular HGB Conc 34 g/dl (31-36); Mean Corpuscular Hemoglobin 32 pg (27-31); Mean Corpuscular Volume 95 fL (80-97); Mean Platelet Volume 8 um3 (7.4-10.4); Red Blood Count 3.32 10^6/ul (4.0-5.4); Red Cell Distribution Width 13 % (10.5-15); White Blood Count 8.6 10^3/ul (3.5-10.8)
[2016-07-16] MEDS: Hydrocortisone SUPP* 25 MG SUPP (2.5%) PR SCH ×2 (07:37→20:20)
[2016-07-16] MEDS: Pantoprazole IV* 40 MG IV SCH ×2 (07:37→20:20)
--- NOTE | 2016-07-16 13:28 | RAD ---
INDICATION: Vomiting, abdominal pain. COMPARISON: July 14, 2016 abdomen radiograph. July 13, 2016 chest radiograph. TECHNIQUE: Multidetector CT images were obtained from the lung apices to the iliac crests without contrast. Assessment of the viscera limited without contrast. CHEST AND ABDOMEN REPORT: Small bilateral dependent pleural effusions with associated compressive atelectasis with near complete atelectasis of the basilar segments of the bilateral lower lobes. Air bronchograms at the anteromedial and lateral basal segments of the LEFT lower lobe noted with the possibility of inflammatory infiltrate. Negative for pneumothorax. Large hiatal hernia with organoaxial gastric volvulus. Contrast extends through the upper GI to the small bowel and colon without evidence for obstruction. Suggestion of mural thickening at the stomach. No CT abnormality of the visualized small bowel loops. A few colonic diverticula are visualized without perienteric inflammatory change. Negative for ascites, free air, or hernias within the [id number]. Normal adrenal glands. Unremarkable kidneys and visualized ureters. Negative for lymphadenopathy within the [id number]. Normal diameter abdominal aorta with mild calcific plaque. Physiologic distention of the IVC. 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 Associated acquired central canal stenosis at L4-L5. CHEST AND ABDOMEN IMPRESSION: 1. Small bilateral dependent pleural effusions with associated compressive atelectasis with the large hiatal hernia contributing to atelectasis. 2. Potential inflammatory infiltrate at the LEFT lower lobe. 3. Organoaxial gastric volvulus without evidence for obstruction. Suggestion of nonspecific mural thickening at the stomach. Consider upper GI series or endoscopy for further assessment.
--- NOTE | 2016-07-16 18:03 | PN ---
Subjective Date of Service: 07/16/16 Interval History: Patient feels better today. Eating with no nausea or discomfort. Family History: Unchanged from Admission Social History: Unchanged from Admission Past Medical History: Unchanged from Admission Objective Active Medications: Artificial Tears (Lacrilube Oint*) 1 applic RIGHT EYE Q4H PRN PRN Reason: DRY EYE Hydrocortisone (Anusol Hc Supp*) 25 mg MN BID ON LICENSE OF [facility] Last Admin: 07/16/16 07:37 Dose: 25 mg Sodium Chloride (Ns 0.9% 1000 Ml*) 1,000 mls @ 100 mls/hr IV PER RATE ON LICENSE OF [facility] Last Admin: 07/16/16 12:56 Dose: 100 mls/hr Levothyroxine Sodium (Synthroid Inj*) 62.5 mcg IV 0600 ON LICENSE OF [facility] Last Admin: 07/16/16 05:37 Dose: 62.5 mcg Morphine Sulfate (Morphine Inj (Syringe)*) 2 mg IV Q4H PRN PRN Reason: PAIN - MILD Ondansetron HCl (Zofran Inj*) 4 mg IV Q6H PRN PRN Reason: NAUSEA Last Admin: 07/15/16 00:22 Dose: 4 mg Pantoprazole Sodium (Protonix Iv*) 40 mg IV Q12HR ON LICENSE OF [facility] Sucralfate (Sucralfate Susp) 1 gm PO Q6H ON LICENSE OF [facility] Last Admin: 07/16/16 12:57 Dose: 1 gm Vital Signs 07/15/16 07/15/16 07/15/16 18:56 19:00 20:00 Temperature 98.1 F 98.1 F Pulse Rate 92 92 Respiratory 15 15 16 Rate Blood Pressure 126/66 126/66 (mmHg) O2 Sat by Pulse 97 97 Oximetry 07/15/16 07/15/16 07/16/16 20:02 23:24 04:04 Temperature 98.3 F 97.8 F 99.2 F Pulse Rate 92 94 101 Respiratory 16 18 20 Rate Blood Pressure 139/79 121/70 122/64 (mmHg) O2 Sat by Pulse 96 93 91 Oximetry 07/16/16 07/16/16 07/16/16 07:17 08:00 11:42 Temperature 98.8 F 98.3 F Pulse Rate 93 101 Respiratory 16 16 16 Rate Blood Pressure 139/79 149/47 (mmHg) O2 Sat by Pulse 95 95 Oximetry 07/16/16 15:08 Temperature 98.7 F Pulse Rate 91 Respiratory 20 Rate Blood Pressure 146/79 (mmHg) O2 Sat by Pulse 99 Oximetry Oxygen Devices in Use Now: None Appearance: Elderly woman sitting up in bed in NAD Eyes: No Scleral Icterus Ears/Nose/Mouth/Throat: Mucous Membranes Moist Neck: No Thyroid Enlargement, Masses Respiratory: Clear to Auscultation Cardiovascular: - - S1S2 teersa Abdominal: NL Sounds; No Tenderness; No Distention, No Hepatosplenomegaly Lymphatic: No Cervical Adenopathy Extremities: No Clubbing, Cyanosis Skin: No Rash or Ulcers Neurological: Alert and Oriented x 3 Result Diagrams: 07/16/16 07:04 07/15/16 05:31 Additional Lab and Data: Lab Results 07/13/16 07/13/16 07/13/16 Range/Units 10:30 10:30 10:30 WBC 17.2 H (3.5-10.8) 10^3/ul RBC 5.13 (4.0-5.4) 10^6/ul Hgb 16.2 H (12.0-16.0) g/dl Hct 48 H (35-47) % MCV 93 (80-97) fL MCH 32 H (27-31) pg MCHC 34 (31-36) g/dl RDW 13 (10.5-15) % Plt Count 307 (150-450) 10^3/ul MPV 8 (7.4-10.4) um3 Neut % (Auto) 93.7 H (38-83) % Lymph % (Auto) 2.7 L (25-47) % [place] % (Auto) 3.5 (1-9) % Eos % (Auto) 0 (0-6) % Baso % (Auto) 0.1 (0-2) % Absolute Neuts (auto) 16.1 H (1.5-7.7) 10^3/ul Absolute Lymphs (auto) 0.5 L (1.0-4.8) 10^3/ul Absolute Monos (auto) 0.6 (0-0.8) 10^3/ul Absolute Eos (auto) 0 (0-0.6) 10^3/ul Absolute Basos (auto) 0 (0-0.2) 10^3/ul Absolute Nucleated RBC 0 10^3/ul Nucleated RBC % 0 Sodium 135 (133-145) mmol/L Potassium 3.5 (3.5-5.0) mmol/L Chloride 95 L (101-111) mmol/L Carbon Dioxide 26 (22-32) mmol/L Anion Gap 14 H (2-11) mmol/L BUN 15 (6-24) mg/dL Creatinine 0.87 (0.51-0.95) mg/dL Est GFR ( Amer) 80.8 (>60) Est GFR (Non-Af Amer) 62.8 (>60) BUN/Creatinine Ratio 17.2 (8-20) Glucose 208 H (70-100) mg/dL Lactic Acid 4.4 H* (0.5-2.0) mmol/L Calcium 10.1 (8.6-10.3) mg/dL Total Bilirubin 0.90 (0.2-1.0) mg/dL AST 18 (13-39) U/L ALT 13 (7-52) U/L Alkaline Phosphatase 74 (34-104) U/L Troponin I 0.02 (<0.04) ng/mL C-Reactive Protein 5.10 H (< 5.00) mg/L Total Protein 8.1 (6.4-8.9) g/dL Albumin 4.8 (3.2-5.2) g/dL Globulin 3.3 (2-4) g/dL Albumin/Globulin Ratio 1.5 (1-3) Lipase 14 (11.0-82.0) U/L Microbiology and Other Data: Microbiology 07/13/16 19:26 Gastric Occult Blood - Final Gastric Fluid Assess/Plan/Problems-Billing Assessment: 80 year old woman admitted with intractable N/V who apparently had an episode of coffee ground emesis this morning. - Patient Problems (1) Nausea & vomiting Current Visit: Yes Status: Acute Code(s): R11.2 - NAUSEA WITH VOMITING, UNSPECIFIED SNOMED Code(s): 49896935 Comment: Severe esophagitis. Appreciate GI's input. Patient already feeling better.Continue clears for now then advance to pureed diet. Continue IVF, sucralfate, Zofran PRN. Flu negative. (2) Coffee ground emesis Current Visit: Yes Status: Acute Code(s): K92.0 - HEMATEMESIS SNOMED Code( s): 750211688 Comment: See above. (3) Anemia Current Visit: Yes Status: Acute Code(s): D64.9 - ANEMIA, UNSPECIFIED SNOMED Code(s): 333519951 Comment: H/H stable. continue to monitor. (4) Dementia Current Visit: Yes Status: Acute Code(s): F03.90 - UNSPECIFIED DEMENTIA WITHOUT BEHAVIORAL DISTURBANCE SNOMED Code(s): 22857344 Comment: Namenda. (5) Hypothyroid Current Visit: Yes Status: Acute Code(s): E03.9 - HYPOTHYROIDISM, UNSPECIFIED SNOMED Code(s): 88911393 Comment: Continue Synthroid. (6) DVT prophylaxis Current Visit: Yes Status: Acute Code(s): AFX0405 - SNOMED Code(s): 248634405 Comment: Sequential compression stockings (7) Full code status Current Visit: Yes Status: Acute Code(s): Z78.9 - OTHER SPECIFIED HEALTH STATUS SNOMED Code(s): 935139397
[2016-07-17] MEDS: Sucralfate SUSP 1 GM/10 ml 10 ML UDC PO SCH ×4 (03:14→19:52)
[2016-07-17] MEDS: Levothyroxine INJ* 100 MCG/5 ML VIAL IV SCH (05:07)
[2016-07-17] MEDS: Hydrocortisone SUPP* 25 MG SUPP (2.5%) PR SCH ×2 (07:40→19:52)
[2016-07-17 07:56] LABS: Hematocrit 31 % (35-47); Hemoglobin 10.7 g/dl (12.0-16.0); Mean Corpuscular HGB Conc 35 g/dl (31-36); Mean Corpuscular Hemoglobin 32 pg (27-31); Mean Corpuscular Volume 93 fL (80-97); Mean Platelet Volume 8 um3 (7.4-10.4); Red Blood Count 3.31 10^6/ul (4.0-5.4); Red Cell Distribution Width 13 % (10.5-15); White Blood Count 8.3 10^3/ul (3.5-10.8)
[2016-07-17 08:13] LABS: Comments Flag Yes
[2016-07-17 08:14] LABS: Add Diff/Slide Review? Slide Review Added
[2016-07-17 08:19] LABS: Albumin 3.1 g/dL (3.2-5.2); BUN/Creatinine Ratio 15.7 (8-20); Calcium 8.1 mg/dL (8.6-10.3); EGFR African American 149.6 (>60); EGFR Non-African American 116.3 (>60); Globulin 2.5 g/dL (2-4); Potassium 2.8 mmol/L (3.5-5.0); Total Bilirubin 0.5 mg/dL (0.2-1.0); Total Protein 5.6 g/dL (6.4-8.9)
[2016-07-17] MEDS: NS 0.9% 1000 ML* 1,000 ML IV SCH ×2 (08:51→19:54)
[2016-07-17] MEDS: Pantoprazole IV* 40 MG IV SCH ×2 (08:51→19:52)
--- NOTE | 2016-07-17 13:51 | PN ---
Subjective Date of Service: 07/17/16 Interval History: Patient feels much better. Wants to advance diet. Family History: Unchanged from Admission Social History: Unchanged from Admission Past Medical History: Unchanged from Admission Objective Active Medications: Artificial Tears (Lacrilube Oint*) 1 applic RIGHT EYE Q4H PRN PRN Reason: DRY EYE Hydrocortisone (Anusol Hc Supp*) 25 mg [place] BID REPLACED BY [facility] Last Admin: 07/17/16 07:40 Dose: 25 mg Sodium Chloride (Ns 0.9% 1000 Ml*) 1,000 mls @ 100 mls/hr IV PER RATE REPLACED BY [facility] Last Admin: 07/17/16 08:51 Dose: 100 mls/hr Levothyroxine Sodium (Synthroid Inj*) 62.5 mcg IV 0600 REPLACED BY [facility] Last Admin: 07/17/16 05:07 Dose: 62.5 mcg Morphine Sulfate (Morphine Inj (Syringe)*) 2 mg IV Q4H PRN PRN Reason: PAIN - MILD Ondansetron HCl (Zofran Inj*) 4 mg IV Q6H PRN PRN Reason: NAUSEA Last Admin: 07/15/16 00:22 Dose: 4 mg Pantoprazole Sodium (Protonix Iv*) 40 mg IV Q12HR REPLACED BY [facility] Last Admin: 07/17/16 08:51 Dose: 40 mg Sucralfate (Sucralfate Susp) 1 gm PO Q6H REPLACED BY [facility] Last Admin: 07/17/16 13:15 Dose: 1 gm Vital Signs 07/16/16 07/16/16 07/16/16 15:08 19:30 19:43 Temperature 98.7 F 98.4 F Pulse Rate 91 94 Respiratory 20 20 18 Rate Blood Pressure 146/79 148/70 (mmHg) O2 Sat by Pulse 99 93 Oximetry 07/16/16 07/16/16 07/17/16 20:56 23:47 03:48 Temperature 98.4 F 98.4 F 98.4 F Pulse Rate 94 88 89 Respiratory 20 16 16 Rate Blood Pressure 148/70 144/57 145/74 (mmHg) O2 Sat by Pulse 93 96 96 Oximetry 07/17/16 07/17/16 07/17/16 06:42 07:39 11:09 Temperature 98.3 F 97.7 F Pulse Rate 90 85 Respiratory 18 16 16 Rate Blood Pressure 156/79 138/64 (mmHg) O2 Sat by Pulse 96 96 Oximetry Oxygen Devices in Use Now: None Appearance: Elderly woman sitting up in bed in NAD Eyes: No Scleral Icterus Ears/Nose/Mouth/Throat: Clear Oropharnyx, Mucous Membranes Moist Neck: No Thyroid Enlargement, Masses Respiratory: Clear to Auscultation Cardiovascular: - - S1S2 teresa Abdominal: NL Sounds; No Tenderness; No Distention, No Hepatosplenomegaly Lymphatic: No Cervical Adenopathy, No Axillary Adenopathy Extremities: No Edema Skin: No Rash or Ulcers Neurological: Alert and Oriented x 3 Result Diagrams: 07/17/16 07:15 07/17/16 07:15 Additional Lab and Data: Lab Results 07/13/16 07/13/16 07/13/16 Range/Units 10:30 10:30 10:30 WBC 17.2 H (3.5-10.8) 10^3/ul RBC 5.13 (4.0-5.4) 10^6/ul Hgb 16.2 H (12.0-16.0) g/dl Hct 48 H (35-47) % MCV 93 (80-97) fL MCH 32 H (27-31) pg MCHC 34 (31-36) g/dl RDW 13 (10.5-15) % Plt Count 307 (150-450) 10^3/ul MPV 8 (7.4-10.4) um3 Neut % (Auto) 93.7 H (38-83) % Lymph % (Auto) 2.7 L (25-47) % Schleicher % (Auto) 3.5 (1-9) % Eos % (Auto) 0 (0-6) % Baso % (Auto) 0.1 (0-2) % Absolute Neuts (auto) 16.1 H (1.5-7.7) 10^3/ul Absolute Lymphs (auto) 0.5 L (1.0-4.8) 10^3/ul Absolute Monos (auto) 0.6 (0-0.8) 10^3/ul Absolute Eos (auto) 0 (0-0.6) 10^3/ul Absolute Basos (auto) 0 (0-0.2) 10^3/ul Absolute Nucleated RBC 0 10^3/ul Nucleated RBC % 0 Sodium 135 (133-145) mmol/L Potassium 3.5 (3.5-5.0) mmol/L Chloride 95 L (101-111) mmol/L Carbon Dioxide 26 (22-32) mmol/L Anion Gap 14 H (2-11) mmol/L BUN 15 (6-24) mg/dL Creatinine 0.87 (0.51-0.95) mg/dL Est GFR ( Amer) 80.8 (>60) Est GFR (Non-Af Amer) 62.8 (>60) BUN/Creatinine Ratio 17.2 (8-20) Glucose 208 H (70-100) mg/dL Lactic Acid 4.4 H* (0.5-2.0) mmol/L Calcium 10.1 (8.6-10.3) mg/dL Total Bilirubin 0.90 (0.2-1.0) mg/dL AST 18 (13-39) U/L ALT 13 (7-52) U/L Alkaline Phosphatase 74 (34-104) U/L Troponin I 0.02 (<0.04) ng/mL C-Reactive Protein 5.10 H (< 5.00) mg/L Total Protein 8.1 (6.4-8.9) g/dL Albumin 4.8 (3.2-5.2) g/dL Globulin 3.3 (2-4) g/dL Albumin/Globulin Ratio 1.5 (1-3) Lipase 14 (11.0-82.0) U/L Microbiology and Other Data: Microbiology 07/13/16 19:26 Gastric Occult Blood - Final Gastric Fluid Assess/Plan/Problems-Billing Assessment: 80 year old woman admitted with intractable N/V who apparently had an episode of coffee ground emesis this morning. - Patient Problems (1) Nausea & vomiting Current Visit: Yes Status: Acute Code(s): R11.2 - NAUSEA WITH VOMITING, UNSPECIFIED SNOMED Code(s): 82869910 Comment: Severe esophagitis. Appreciate GI's input. Patient already feeling better.Advance to pureeeddiet. Continue IVF, sucralfate, Zofran PRN. Flu negative. (2) Coffee ground emesis Current Visit: Yes Status: Acute Code(s): K92.0 - HEMATEMESIS SNOMED Code( s): 653679799 Comment: See above. (3) Anemia Current Visit: Yes Status: Acute Code(s): D64.9 - ANEMIA, UNSPECIFIED SNOMED Code(s): 723619005 Comment: H/H stable. continue to monitor. (4) Dementia Current Visit: Yes Status: Acute Code(s): F03.90 - UNSPECIFIED DEMENTIA WITHOUT BEHAVIORAL DISTURBANCE SNOMED Code(s): 27882650 Comment: Namenda. (5) Hypothyroid Current Visit: Yes Status: Acute Code(s): E03.9 - HYPOTHYROIDISM, UNSPECIFIED SNOMED Code(s): 36703726 Comment: Continue Synthroid. (6) DVT prophylaxis Current Visit: Yes Status: Acute Code(s): BLQ7795 - SNOMED Code(s): 111373413 Comment: Sequential compression stockings (7) Full code status Current Visit: Yes Status: Acute Code(s): Z78.9 - OTHER SPECIFIED HEALTH STATUS SNOMED Code(s): 180766761
[2016-07-18] MEDS: Sucralfate SUSP 1 GM/10 ml 10 ML UDC PO SCH ×4 (02:21→20:34)
[2016-07-18] MEDS: NS 0.9% 1000 ML* 1,000 ML IV SCH ×2 (05:14→16:31)
[2016-07-18] MEDS: Levothyroxine INJ* 100 MCG/5 ML VIAL IV SCH (05:14)
[2016-07-18] MEDS: Hydrocortisone SUPP* 25 MG SUPP (2.5%) PR SCH ×2 (08:04→20:35)
[2016-07-18] MEDS: Pantoprazole IV* 40 MG IV SCH ×2 (08:07→22:09)
--- NOTE | 2016-07-18 12:47 | PN ---
Progress Note - Progress Note SOAP: Subjective: Reports feeling better overall, denies any complaints. No rectal pain or bleeding. Objective: Awake and alert, eating lunch, comfortable. VSS Rectal exam deferred today. Assessment: A 80 y/o female with prolapsed internal hemorrhoids, improving with conservative measures. Plan: Continue Anusol suppositories for the next week. Surgical associates will plan on periodic visit during this admission.
--- NOTE | 2016-07-18 16:14 | PN ---
Subjective Date of Service: 07/18/16 Interval History: Patient says she didnt eat as much today because she didnt like the food today. Family History: Unchanged from Admission Social History: Unchanged from Admission Past Medical History: Unchanged from Admission Objective Active Medications: Artificial Tears (Lacrilube Oint*) 1 applic RIGHT EYE Q4H PRN PRN Reason: DRY EYE Hydrocortisone (Anusol Hc Supp*) 25 mg [place] BID [facility] Last Admin: 07/18/16 08:04 Dose: 25 mg Sodium Chloride (Ns 0.9% 1000 Ml*) 1,000 mls @ 100 mls/hr IV PER RATE [facility] Last Admin: 07/18/16 05:14 Dose: 100 mls/hr Levothyroxine Sodium (Synthroid Inj*) 62.5 mcg IV 0600 [facility] Last Admin: 07/18/16 05:14 Dose: 62.5 mcg Morphine Sulfate (Morphine Inj (Syringe)*) 2 mg IV Q4H PRN PRN Reason: PAIN - MILD Ondansetron HCl (Zofran Inj*) 4 mg IV Q6H PRN PRN Reason: NAUSEA Last Admin: 07/15/16 00:22 Dose: 4 mg Pantoprazole Sodium (Protonix Iv*) 40 mg IV Q12HR [facility] Last Admin: 07/18/16 08:07 Dose: 40 mg Sucralfate (Sucralfate Susp) 1 gm PO Q6H [facility] Last Admin: 07/18/16 12:54 Dose: 1 gm Vital Signs 07/17/16 07/17/16 07/17/16 16:16 19:31 23:28 Temperature 98.4 F 98.6 F Pulse Rate 83 85 Respiratory 24 19 16 Rate Blood Pressure 150/80 144/74 (mmHg) O2 Sat by Pulse 97 95 Oximetry 07/18/16 07/18/16 07/18/16 03:46 06:16 07:19 Temperature 98.5 F 98.1 F Pulse Rate 82 84 Respiratory 16 18 20 Rate Blood Pressure 139/71 151/83 (mmHg) O2 Sat by Pulse 95 94 Oximetry 07/18/16 07/18/16 11:23 15:55 Temperature 97.5 F 98.6 F Pulse Rate 80 83 Respiratory 20 20 Rate Blood Pressure 146/75 110/80 (mmHg) O2 Sat by Pulse 96 98 Oximetry Oxygen Devices in Use Now: None Appearance: Elderly woman sitting up in bed in NAD Eyes: No Scleral Icterus Ears/Nose/Mouth/Throat: Clear Oropharnyx, Mucous Membranes Moist Neck: No Thyroid Enlargement, Masses Respiratory: Clear to Auscultation Cardiovascular: - - S1S2 teresa Abdominal: NL Sounds; No Tenderness; No Distention, No Hepatosplenomegaly Lymphatic: No Cervical Adenopathy Extremities: No Clubbing, Cyanosis Skin: No Rash or Ulcers Neurological: Alert and Oriented x 3 Result Diagrams: 07/17/16 07:15 07/17/16 07:15 Additional Lab and Data: Lab Results 07/13/16 07/13/16 07/13/16 Range/Units 10:30 10:30 10:30 WBC 17.2 H (3.5-10.8) 10^3/ul RBC 5.13 (4.0-5.4) 10^6/ul Hgb 16.2 H (12.0-16.0) g/dl Hct 48 H (35-47) % MCV 93 (80-97) fL MCH 32 H (27-31) pg MCHC 34 (31-36) g/dl RDW 13 (10.5-15) % Plt Count 307 (150-450) 10^3/ul MPV 8 (7.4-10.4) um3 Neut % (Auto) 93.7 H (38-83) % Lymph % (Auto) 2.7 L (25-47) % Crosby % (Auto) 3.5 (1-9) % Eos % (Auto) 0 (0-6) % Baso % (Auto) 0.1 (0-2) % Absolute Neuts (auto) 16.1 H (1.5-7.7) 10^3/ul Absolute Lymphs (auto) 0.5 L (1.0-4.8) 10^3/ul Absolute Monos (auto) 0.6 (0-0.8) 10^3/ul Absolute Eos (auto) 0 (0-0.6) 10^3/ul Absolute Basos (auto) 0 (0-0.2) 10^3/ul Absolute Nucleated RBC 0 10^3/ul Nucleated RBC % 0 Sodium 135 (133-145) mmol/L Potassium 3.5 (3.5-5.0) mmol/L Chloride 95 L (101-111) mmol/L Carbon Dioxide 26 (22-32) mmol/L Anion Gap 14 H (2-11) mmol/L BUN 15 (6-24) mg/dL Creatinine 0.87 (0.51-0.95) mg/dL Est GFR ( Amer) 80.8 (>60) Est GFR (Non-Af Amer) 62.8 (>60) BUN/Creatinine Ratio 17.2 (8-20) Glucose 208 H (70-100) mg/dL Lactic Acid 4.4 H* (0.5-2.0) mmol/L Calcium 10.1 (8.6-10.3) mg/dL Total Bilirubin 0.90 (0.2-1.0) mg/dL AST 18 (13-39) U/L ALT 13 (7-52) U/L Alkaline Phosphatase 74 (34-104) U/L Troponin I 0.02 (<0.04) ng/mL C-Reactive Protein 5.10 H (< 5.00) mg/L Total Protein 8.1 (6.4-8.9) g/dL Albumin 4.8 (3.2-5.2) g/dL Globulin 3.3 (2-4) g/dL Albumin/Globulin Ratio 1.5 (1-3) Lipase 14 (11.0-82.0) U/L Microbiology and Other Data: Microbiology 07/13/16 19:26 Gastric Occult Blood - Final Gastric Fluid Assess/Plan/Problems-Billing Assessment: 80 year old woman admitted with intractable N/V who apparently had an episode of coffee ground emesis this morning. - Patient Problems (1) Nausea & vomiting Current Visit: Yes Status: Acute Code(s): R11.2 - NAUSEA WITH VOMITING, UNSPECIFIED SNOMED Code(s): 65978881 Comment: Severe esophagitis. Appreciate GI's input. Patient already feeling better.Advance to soft diet. Continue IVF, sucralfate, Zofran PRN. Flu negative. (2) Coffee ground emesis Current Visit: Yes Status: Acute Code(s): K92.0 - HEMATEMESIS SNOMED Code( s): 703023827 Comment: See above. (3) Anemia Current Visit: Yes Status: Acute Code(s): D64.9 - ANEMIA, UNSPECIFIED SNOMED Code(s): 227396946 Comment: H/H stable. continue to monitor. (4) Dementia Current Visit: Yes Status: Acute Code(s): F03.90 - UNSPECIFIED DEMENTIA WITHOUT BEHAVIORAL DISTURBANCE SNOMED Code(s): 25640123 Comment: Namenda. (5) Hypothyroid Current Visit: Yes Status: Acute Code(s): E03.9 - HYPOTHYROIDISM, UNSPECIFIED SNOMED Code(s): 36337336 Comment: Continue Synthroid. (6) DVT prophylaxis Current Visit: Yes Status: Acute Code(s): UYS4472 - SNOMED Code(s): 330529337 Comment: Sequential compression stockings (7) Full code status Current Visit: Yes Status: Acute Code(s): Z78.9 - OTHER SPECIFIED HEALTH STATUS SNOMED Code(s): 537452950
[2016-07-19] MEDS: Sucralfate SUSP 1 GM/10 ml 10 ML UDC PO SCH ×4 (03:32→20:49)
[2016-07-19] MEDS: NS 0.9% 1000 ML* 1,000 ML IV SCH ×2 (04:25→15:14)
[2016-07-19] MEDS: Levothyroxine INJ* 100 MCG/5 ML VIAL IV SCH (05:47)
[2016-07-19] MEDS: Ondansetron INJ* 2 MG/ML VIAL IV PRN (09:27)
[2016-07-19] MEDS: Pantoprazole IV* 40 MG IV SCH (09:28)
[2016-07-19] MEDS: Hydrocortisone SUPP* 25 MG SUPP (2.5%) PR SCH ×2 (09:28→20:49)
[2016-07-19] MEDS: KCL 20 MEQ/100 ML IVPREMIX* 20 MEQ/100 ML BAG IV SCH ×3 (09:44→17:20)
[2016-07-19] MEDS ORDERED: Nitroglycerin 0.4 MG/HR PATCH* (10 MG) TRANSDERM SCH (12:00)
[2016-07-19] MEDS: Memantine TAB* 5 MG PO SCH (12:34)
[2016-07-19 20:25] LABS: Calcium 7.2 mg/dL (8.6-10.3); EGFR African American 153.1 (>60)
[2016-07-19 20:27] LABS: Potassium 4.9 mmol/L (3.5-5.0)
[2016-07-19] MEDS ORDERED: Mirtazapine TAB* 15 MG PO PRN (20:45)
[2016-07-19] MEDS ORDERED: Nitro Patch/OINT Remove SCH (21:00)
[2016-07-19] MEDS: Omeprazole CAP* 20 MG PO SCH (21:19)
[2016-07-20] MEDS: NS 0.9% 1000 ML* 1,000 ML IV SCH (01:32)
[2016-07-20] MEDS: Sucralfate SUSP 1 GM/10 ml 10 ML UDC PO SCH ×2 (02:42→07:53)
[2016-07-20] MEDS ORDERED: Levothyroxine TAB* 125 MCG TAB PO SCH (06:00)
--- NOTE | 2016-07-20 07:49 | DS ---
DISCHARGE SUMMARY: DATE OF ADMISSION: 07/13/16 DATE OF DISCHARGE: 07/20/16 ADMISSION DIAGNOSES: 1. Intractable nausea and vomiting. 2. Hiatal hernia. 3. Hypoglycemia. 4. Hypothyroidism. 5. Dementia. DISCHARGE DIAGNOSES: 1. Intractable nausea and vomiting. 2. Hiatal hernia. 3. Hypoglycemia. 4. Hypothyroidism. 5. Dementia. 6. Severe esophagitis. HOSPITAL COURSE: The patient is a 80-year-old woman who presented to [facility] with a chief complaint of intractable nausea and vomiting. Please see H and P for further details. The patient was admitted, hydrated, and given antiemetics. The patient had an episode of coffee-ground emesis one morning, and GI did see the patient. Surprisingly, there was no active bleeding , but there was found to be significant severe esophagitis. GI thought it could even be a pill esophagitis. She was placed on PPI and her pills were discontinued. She was initially placed on a clear-liquid diet and then she advanced to soft food. The patient improved dramatically. She was weakened by the experience, but was ready to be discharged to a skilled facility for rehab on 07/20/16. Some of her medications were reintroduced and they can be restarted if they can be ground and given to her that way. PHYSICAL EXAM ON THE DATE OF DISCHARGE: Elderly woman sitting up in bed in no acute distress. Vital Signs: Temperature 98.5 degrees, heart rate 80 beats per minute, respiratory rate 18 breaths per minute, pulse ox 91%, and blood pressure 147/77. HEENT: Normocephalic, atraumatic. Pupils equal, round, and react to light. Moist mucous membranes. Neck: Supple. No JVD, bruits, palpable thyroid, or lymphadenopathy. Chest: Clear to auscultation and percussion bilaterally. Cardiovascular Exam: S1 and S2 appreciated. Abdominal exam: Positive bowel sounds in all 4 quadrants. Soft, nontender, nondistended. Extremities: No cyanosis, clubbing or edema. +2 pulses bilaterally. Neuro: Alert and oriented x3. Moves all extremities. Skin: No rashes or abnormalities. STUDIES DONE WHILE IN THE HOSPITAL: 1. Chest x-ray, 07/13/12, impression: There is a very large hiatal hernia. 2. Abdominal x-ray, 07/14/12, impression: No acute diagnostic findings. 3. Upper gastrointestinal endoscopy to the mid duodenum, impression: Large hiatal hernia. Severe esophagitis three-fourths of the lumen suspect to be mostly peptic, but probably, in some part, caustic from medication trapping. GI bleeding, modest; the patient will be managed with continuous PPI infusion, topical Carafate, and elevation, eventual CT scan and surgical consult. When ready to feed, should be done upright with pureed diet. 4. Chest, abdomen CT, 07/16/16, impression: Small bilateral dependent pleural effusions with associated compressive atelectasis with large hiatal hernia contributing to atelectasis. Potential inflammatory infiltrate at the left lower lobe. Organoaxial gastric volvulus without evidence for obstruction, suggestive of nonspecific mural thickening at the stomach. Consider upper GI series or endoscopy for further assessment. DISCHARGE MEDICATIONS: 1. Cholecalciferol 2000 units daily. 2. Coenzyme Q10 200 mg daily. 3. Remeron 50 mg at bedtime. 4. Memantine 5 mg twice daily. 5. Levothyroxine 125 mcg daily. 6. Risperidone 2.5 mg at bedtime. 7. Sucralfate 1 g every 6 hours. 8. Omeprazole 20 mg twice daily. 9. Hydrocortisone suppository 25 mg p.o. b.i.d. 10. Artificial tears applied right eye q. 4 hours p.r.n. DISCHARGE PLAN: The patient to be discharged to [facility] tomorrow. The patient should receive physical therapy. When the patient is stronger, she should follow up with GI as well as consider follow up with surgery in case that type of intervention might be considered necessary with her severe esophagitis. TIME SPENT: Over 40 minutes were spent on this discharge, more than 25 minutes of which were spent in direct [id number] contact with the patient in evaluation, physical exam, counseling, and coordination of care. CC: Dr. Jermaine Fairchild; Dr. Geovany Richards* [id number]/[facility] #: [id number] [facility] CENTERKenton
[2016-07-20] MEDS: Hydrocortisone SUPP* 25 MG SUPP (2.5%) PR SCH (09:17)
[2016-07-20] MEDS: Memantine TAB* 5 MG PO SCH (09:18)
[2016-07-20] MEDS: Omeprazole CAP* 20 MG PO SCH (09:19)
[2016-07-20 11:12] VITALS: BP 134/77
== END 2016-07-20 12:22 | disposition swing bed (61) | DRG 392 ==
LOC: ED 09:39 → MED 12:12 → OBSVTOIN 07-14 17:00 → MEDTELE 07-15 19:07
PROVIDERS: ADMIT Hospitalist; ATTEND Internal Medicine
PROC: 0DJ08ZZ Inspection of Upper Intestinal Tract, Via Natural or Artificial Opening Endoscopic (ICD-10-PCS; principal; 2016-07-15)
DX: K20.9 Esophagitis, unspecified (principal); J90 Pleural effusion, not elsewhere classified; E87.2 Acidosis; K92.0 Hematemesis; J98.11 Atelectasis; F03.90 Unspecified dementia, unspecified severity, without behavioral disturbance, psychotic disturbance, mood disturbance, and anxiety; F41.9 Anxiety disorder, unspecified; R40.2412 Glasgow coma scale score 13-15, at arrival to emergency department; E03.9 Hypothyroidism, unspecified; K44.9 Diaphragmatic hernia without obstruction or gangrene; R73.9 Hyperglycemia, unspecified; R33.9 Retention of urine, unspecified; D64.9 Anemia, unspecified; Z96.653 Presence of artificial knee joint, bilateral; K31.89 Other diseases of stomach and duodenum; K64.2 Third degree hemorrhoids; T50.905A Adverse effect of unspecified drugs, medicaments and biological substances, initial encounter; Z84.89 Family history of other specified conditions
CPT/HCPCS: 36415; 71010; 71250; 74000; 74150; 80048; 80053; 81003; 81015; 82271; 83036; 83605; 83690; 84484; 85014; 85018; 85025; 86140; 87502; 93005; A9270-GY; G0378; J1644; J2250; J2405; J3480

== ENCOUNTER 2016-08-07 08:40 | Emergency (ER) | payer MEDICARE, BC ==
--- NOTE | 2016-08-07 09:32 | RAD ---
INDICATION: Chest pain COMPARISON: July 13, 2016 TECHNIQUE: An AP portable view obtained at 0923 hours is submitted. FINDINGS: Bones/Soft Tissues: There are no acute bony findings. Cardiomediastinal: The cardiomediastinal silhouette is normal. Lungs: Bibasal infiltrates and/or atelectasis. Pleura: Bilateral pleural effusions. Other: Very large diaphragmatic defect with herniation of stomach and bowel appearing unchanged IMPRESSION: VERY LARGE DIAPHRAGMATIC DEFECT. BASILAR LUNG ABNORMALITIES WITH SMALL BILATERAL PLEURAL EFFUSIONS WITH MILD WORSENING
--- NOTE | 2016-08-07 09:38 | RAD ---
INDICATION: Intermittent left-sided weakness COMPARISON: CT brain December 08, 2015 TECHNIQUE: Noncontrast axial source images were acquired from the skull base to the vertex. FINDINGS: Ventricles/sulci: There is cortical atrophy with compensatory dilatation of the CSF spaces. Brain parenchyma: There is periventricular and subcortical white matter change compatible with chronic ischemia. Intracranial hemorrhage:None. Extra-axial spaces: There are no abnormal extra axial fluid collections or evidence of extra-axial mass. Calvarium: There is no calvarial fracture or other calvarial abnormality. Scalp: There is no evidence of scalp or extracalvarial soft tissue abnormality. Paranasal sinuses/mastoid: The paranasal sinuses and mastoid air cells are clear. Other: None. IMPRESSION: CORTICAL ATROPHY WITH CHRONIC MICROVASCULAR ISCHEMIC CHANGES. NO ACUTE FINDINGS.
[2016-08-07 09:55] LABS: Hematocrit 36 % (35-47); Hemoglobin 11.7 g/dl (12.0-16.0); Mean Corpuscular HGB Conc 33 g/dl (31-36); Mean Corpuscular Hemoglobin 31 pg (27-31); Mean Corpuscular Volume 94 fL (80-97); Mean Platelet Volume 8 um3 (7.4-10.4); Red Blood Count 3.78 10^6/ul (4.0-5.4); Red Cell Distribution Width 14 % (10.5-15); White Blood Count 9.3 10^3/ul (3.5-10.8)
[2016-08-07 10:24] LABS: ALT 22 U/L (7-52); Albumin 3.8 g/dL (3.2-5.2); Alkaline Phosphatase 136 U/L (34-104); BUN/Creatinine Ratio 15.9 (8-20); Blood Urea Nitrogen 10 mg/dL (6-24); CO2 Carbon Dioxide 22 mmol/L (22-32); Calcium 9.5 mg/dL (8.6-10.3); Chloride 98 mmol/L (101-111); EGFR African American 117.2 (>60); EGFR Non-African American 91.2 (>60); Glucose 104 mg/dL (70-100); Sodium 131 mmol/L (133-145); Total Protein 7.8 g/dL (6.4-8.9)
[2016-08-07 10:27] LABS: Troponin I 0.01 ng/mL (<0.04)
[2016-08-07 10:39] LABS: Urine Bacteria Absent (Absent); Urine Bilirubin Negative (Negative); Urine Glucose Negative (Negative); Urine Nitrite Negative (Negative)
[2016-08-07] MEDS ORDERED: NS 0.9% 1000 ML* 1,000 ML IV ONE (10:50)
[2016-08-07 11:07] LABS: T4 12.05 mcg/mL (6.09-12.23); TSH (Thyroid Stimulating Horm) 0.89 mcIU/mL (0.34-5.60)
[2016-08-07 12:33] LABS: Magnesium 1.9 mg/dL (1.9-2.7)
[2016-08-07 13:17] VITALS: BP 140/79
--- NOTE | 2016-08-07 16:13 | ED ---
Ketan Bee Billy, scribed for Mirza Sanchez MD on 08/07/16 at 0910 . HPI Chest Pain - HPI Summary HPI Summary: Patient is a 80 year-old female coming to [facility] for evaluation of chest pain since 0800 today. Per family, patient has been feeling generally weak, as well, over the last 3 days. Patient and family deny noticing any coughing, wheezing, or diarrhea. The patient recently left rehab for treatment of esophageal bleeding; patient has not had any further exacerbation or recurrence of such symptoms. They also report that she has had a recent UTI. - History of Current Complaint Chief Complaint: EDChestPainROMI Time Seen by Provider: 08/07/16 09:03 Hx Obtained From: Patient, Family/Net Lead Architect Time of Onset: 08:00 Timing: Constant Initial Severity: Moderate Current Severity: Moderate Pain Intensity: 4 Pain Scale Used: 0-10 Numeric Chest Pain Radiates: No Aggravating Factor(s): Nothing Alleviating Factor(s): Nothing Associated Signs and Symptoms: Positive: Chest Pain. Negative: Cough - Additional Pertinent History Primary Care Physician: OSITO - Allergy/Home Medications Allergies/Adverse Reactions: Allergies Allergy/AdvReac Type Severity Reaction Status Date / Time No Known Allergies Allergy Verified 07/13/16 10:28 PMH/Surg Hx/FS Hx/Imm Hx Endocrine/Hematology History: Reports: Hx Thyroid Disease Cardiovascular History: Reports: Hx Hypertension GI History: Reports: Hx Gastroesophageal Reflux Disease, Hx Hiatal Hernia Musculoskeletal History: Reports: Other Musculoskeletal History - weakness, orthopedic surgeries Bilateral Knee Replacement Sensory History: Reports: Hx Cataracts - R eye Denies: Hx Contacts or Glasses, Hx Hearing Aid Opthamlomology History: Reports: Hx Cataracts - R eye Denies: Hx Contacts or Glasses Neurological History: Reports: Hx Dementia Psychiatric History: Reports: Hx Anxiety - Surgical History Surgery Procedure, Year, and Place: Bilateral knee replacement, bunion surgery Hx Anesthesia Reactions: No Infectious Disease History: No Infectious Disease History: Denies: Traveled Outside the [place] in Last 30 Days - Family History Known Family History: Negative: Cardiac Disease, Hypertension, Diabetes - Social History Alcohol Use: None Substance Use Type: Reports: None Smoking Status (MU): Never Smoked Tobacco Review of Systems Positive: Chest Pain Negative: Cough Negative: Diarrhea All Other Systems Reviewed And Are Negative: Yes Physical Exam - Summary Physical Exam Summary: VITAL SIGNS: Reviewed. GENERAL: Patient is a well developed and nourished female who is lying comfortable in the stretcher. Patient is not in any acute respiratory distress. HEAD AND FACE: No signs of trauma. No ecchymosis, hematomas or skull depressions. No sinus tenderness. EYES: PERRLA, EOMI x 2, No injected conjunctiva, no nystagmus. No photophobia. EARS: Hearing grossly intact. Ear canals and tympanic membranes are within normal limits. MOUTH: Oropharynx within normal limits. NECK: Supple, trachea is midline, no adenopathy, no JVD, no carotid bruit, no c- spine tenderness, neck with full ROM. No meningeal signs, no Kernig's or brudzinskis signs. CHEST: Symmetric, no tenderness at palpation LUNGS: Clear to auscultation bilaterally. No wheezing or crackles. CVS: Regular rate and rhythm, S1 and S2 present, no murmurs or gallops appreciated. ABDOMEN: Soft, non-tender. No signs of distention. No rebound no guarding, and no masses palpated. Bowel sounds are normal. EXTREMITIES: FROM in all major joints, no edema, no cyanosis or clubbing. NEURO: Alert and oriented x 3. No acute neurological deficits. Speech is normal and follows commands. SKIN: Dry and warm Triage Information Reviewed: Yes Vital Signs On Initial Exam: Initial Vitals Temp Pulse Resp BP Pulse Ox 98.7 F 104 14 113/60 100 08/07/16 08:43 08/07/16 08:43 08/07/16 08:43 08/07/16 08:43 08/07/16 08:43 Vital Signs Reviewed: Yes Diagnostics - Vital Signs Vital Signs Temp Pulse Resp BP Pulse Ox 08/07/16 08:47 98.1 F 104 14 107/56 100 08/07/16 08:43 98.7 F 104 14 113/60 100 - Laboratory Result Diagrams: 08/07/16 09:40 08/07/16 12:15 Lab Statement: Any lab studies that have been ordered have been reviewed, and results considered in the medical decision making process. - Radiology CXR Radiology Interpretation Completed By: Radiologist - VERY LARGE DIAPHRAGMATIC DEFECT. BASILAR LUNG ABNORMALITIES WITH SMALL BILATERAL PLEURAL EFFUSIONS WITH MILD WORSENING - CT Brain CT Interpretation Completed By: Radiologist - CORTICAL ATROPHY WITH CHRONIC MICROVASCULAR ISCHEMIC CHANGES. NO ACUTE FINDINGS. - EKG 0859 EKG Interpretation: sinus tachycardia 101 bpm, no STEMI, low voltage EKG Re-Evaluation - Re-Evaluation First Eval Re-Evaluation Time: 11:39 Comment: Labs and test results reviewed. Chest Pain Course/Dx - Course Assessment/Plan: Patient is a 80 year-old female coming to [facility] for evaluation of chest pain since 0800 today. Per family, patient has been feeling generally weak, as well, over the last 3 days. Patient and family deny noticing any coughing, wheezing, or diarrhea. The patient recently left rehab for treatment of esophageal bleeding; patient has not had any further exacerbation or recurrence of such symptoms. They also report that she has had a recent UTI. Bloodwork WNL except for Hgb of 11.7. Sodium 131 and glucose 104. UA shows no UTI. CT brain shows no acute intracranial pathology. CXR shows very large diaphragmatic defect, basilar lung abnormalities with small bilateral pleural effusions with mild worsening. In the ED course, the patient was given IV fluids for hydration and actually she reports that she feels better. She is able to ambulate and walk. Patient's HR increased when she was moving however she continue to have an O2 sat of 96-98%, therefore she is not hypoxic and she denies any SOB. By wells criteria she scores only 1.5% which is low probability for PE. I discussed these findings and test results with her daughters, and they agree to take the patient home to follow up with PCP. She is A&Ox3, hemodynamically stable. They were instructed to return to the ED if she develops any SOB, palpitations, chest pain, feeling like she is going to pass out. Patient nad her daughters agree and understand. Before discahrge when she is at rest her HR fluctuates between 90 to 98. When she moves increase to 96 to 107 BPM. This can be possible to dehydration however if symptoms worsen she should return to the ED. Plan of care was discussed with the patient and understands and agrees. All questions were answered at patient satisfaction. There were no further complaints or concerns. Lung exam before discharge: CTA B /L. Good air exchange. No wheezing or crackles heard. CVS: S1 and S2 present. No murmurs appreciated. Patient is alert and oriented x 3. Patient is hemodynamically stable. Patient will be discharged home with follow up PCP in the next 2-3 days - Chest Pain Differential Diagnosis/HQI/PQRI: Acute ID, ACS, Angina, CHF, Chest Wall, GI Disease, Lower Respiratory Infection, Pulmonary Edema - Diagnoses Provider Diagnoses: Weakness Discharge - Discharge Plan Condition: Stable Disposition: HOME Patient Education Materials: Weakness (ED) Referrals: Jermaine Fairchild DO [Primary Care Provider] - The documentation as recorded by the Ketan ocasio Billy accurately reflects the service I personally performed and the decisions made by Daniel motley Walter, MD.
== END 2016-08-07 13:17 | disposition home or self-care (01) ==
LOC: ED 08:40
DX: R53.1 Weakness (principal); R07.9 Chest pain, unspecified
CPT/HCPCS: 36415; 70450; 71010; 80053; 81003; 81015; 82553; 83605; 83735; 83880; 84436; 84443; 84484; 85025; 85730; 87086; 93005; 99283

== ENCOUNTER 2016-10-16 15:22 | Inpatient (IN) | payer MEDICARE, BC ==
[2016-10-16] MEDS ORDERED: NS 0.9% 1000 ML* 1,000 ML IV ONE (17:33)
[2016-10-16] MEDS ORDERED: Ondansetron INJ* 2 MG/ML VIAL IV ONE (17:33)
[2016-10-16] MEDS ORDERED: Morphine INJ* 4 MG/ML 1 ML SYRINGE IV ONE (17:33)
[2016-10-16 18:32] LABS: Hematocrit 42 % (35-47); Hemoglobin 13.8 g/dl (12.0-16.0); Mean Corpuscular HGB Conc 33 g/dl (31-36); Mean Corpuscular Hemoglobin 28 pg (27-31); Mean Corpuscular Volume 86 fL (80-97); Mean Platelet Volume 8 um3 (7.4-10.4); Red Blood Count 4.88 10^6/ul (4.0-5.4); Red Cell Distribution Width 15 % (10.5-15); White Blood Count 13.6 10^3/ul (3.5-10.8)
[2016-10-16 18:37] LABS: Albumin 4.2 g/dL (3.2-5.2); BUN/Creatinine Ratio 19.3 (8-20); C Reactive Protein 19.14 mg/L (< 5.00); Calcium 9.9 mg/dL (8.6-10.3); EGFR African American 79.7 (>60); Globulin 3.7 g/dL (2-4); Potassium 3.2 mmol/L (3.5-5.0); Total Bilirubin 0.6 mg/dL (0.2-1.0); Total Protein 7.9 g/dL (6.4-8.9)
[2016-10-16] MEDS ORDERED: Iodixanol* (CONTRAST) 320 MG/ML 100 ML SDV IV ONE (19:17)
[2016-10-16] MEDS ORDERED: Labetalol IV* 5 MG/ML 20 ML VIAL IV PUSH ONE (21:26)
--- NOTE | 2016-10-16 22:02 | RAD ---
CLINICAL HISTORY: Emesis and low abdominal pain since the previous day COMPARISON: CTA of the chest and abdomen dated July 16, 2016 TECHNIQUE: Contrast enhanced CT examination of the abdomen and pelvis from the lung bases through the initial tuberosities. The patient received 80 mL Visipaque 320 intravenously prior to imaging.The patient received oral contrast as well prior to imaging. FINDINGS: VISUALIZED LUNG BASES: There is compressive atelectasis of the left lower lobe due to compression by the massively dilated intrathoracic stomach. Otherwise the visualized lung bases are grossly clear. There is no pleural effusion. ABDOMEN AND PELVIS: Either due to elevation of the left hemidiaphragm or due to a massively enlarged hiatal hernia at least 50% of the fluid-filled stomach is located at the base of the left hemithorax. The gastroduodenal junction appears to have herniated above and anterior to the right diaphragmatic yudith (image 18 of 96) trying at least the first if not the second portion of the duodenum across the midline and into the large diaphragmatic hernia. This is causing obstruction with the appearance of obstruction at the gastroduodenal junction. The body of the stomach and perhaps the gastric fundus appears to be displaced inferiorly into the left upper quadrant. Distal wrist the small bowel is mostly decompressed. The gas and stool-filled colon is normal in appearance. There are scattered rectosigmoid diverticula. The liver, spleen, pancreas and adrenal glands are grossly normal in appearance. The gallbladder is normal. The kidneys are normal in appearance without focal mass, calcification or signs of hydronephrosis. The urinary bladder measures 17 cm in the cephalocaudal projection and 12.1 x 10.1 cm in the axial plane yielding an approximate volume of 1.7 L. There is no gross retroperitoneal or mesenteric lymphadenopathy. The pelvic viscera is normal in appearance. The abdominal aorta and iliac arteries are normal in course and diameter. Degenerative changes of the lower thoracic and lumbar spine includes loss of intervertebral disc height, multilevel vacuum disc phenomenon and a grade 1 anterolisthesis of L4 over L5.There are no sinister bone lesions. IMPRESSION: 1. There appears to have been progression of the patient's very large hiatal hernia with appearance of the gastroduodenal junction herniating above the diaphragm causing obstruction and subsequently causing the stomach to be massively dilated with fluid and debris. This could be a gastric volvulus and correlation should be made to clinical signs and symptoms of vascular compromise. Further characterization could be made including CT of the chest (part of the stomach is cut off of the field of view due to spray adequately imaging the lung bases) and giving the patient a small amount of oral contrast at that would be tolerated. 2. Urinary bladder is distended yielding an approximate volume of 1.7 L. Please correlate to insensate/neurogenic bladder and/or bladder outlet obstruction. 3. Additional chronic and degenerative changes described in body the report. Gastric findings were discussed with Dr. Sanchez over the telephone at 2158 hours on October 16, 2016.
--- NOTE | 2016-10-16 22:40 | ED ---
[place] Bee Thomas, scribed for Mirza Sanchez MD on 10/16/16 at 1736 . Abdominal Pain/Female - HPI Summary HPI Summary: The pt is a 80 y/o F accompanied by her daughter and presenting to the ED c/o abd pain that began 24 hours ago. The pain does not radiate. The pain is rated 10/10. Her last BM was yesterday and it was normal. Nothing aggravates or alleviates the pain. Pt additionally c/o nausea and vomiting (once yesterday at 12PM with appearance of undigested food, once today again with brown appearance) . Pt denies diarrhea. PMHx: Alzheimers, anxiety, hypothyroidism, HTN, and hiatal hernia. PSHx: bilateral knee replacement. SHx: no alcohol, no illicit drugs, no smoking. She lives with her daughter. - History of Current Complaint Chief Complaint: EDNauseaVomitDiarrh Stated Complaint: VOMITTING/SHAKEY Time Seen by Provider: 10/16/16 17:27 Hx Obtained From: Patient, Family/Signs And Displays Sales Representative - daughter in room Onset/Duration: Gradual Onset, Lasting Hours - 24 hours, Still Present Timing: Constant Severity Currently: Severe Pain Intensity: 10 Pain Scale Used: 0-10 Numeric Location: Diffuse - but mostly in periumbilical region Radiates: No Aggravating Factor(s): Nothing Alleviating Factor(s): Nothing Associated Signs and Symptoms: Positive: Nausea, Vomiting - once yesterday at 12PM with food appearance, today again with brown appearance. Negative: Diarrhea Allergies/Adverse Reactions: Allergies Allergy/AdvReac Type Severity Reaction Status Date / Time No Known Allergies Allergy Verified 07/13/16 10:28 Home Medications: Home Medications Cholecalciferol TAB* [Vitamin D TAB*] 1,000 unit PO BID 10/16/16 [History Confirmed 10/16/16] Sucralfate [Carafate] 1 gm PO BID 10/16/16 [History Confirmed 10/16/16] PMH/Surg Hx/FS Hx/Imm Hx Previously Healthy: No Endocrine/Hematology History: Reports: Hx Thyroid Disease Cardiovascular History: Reports: Hx Hypertension GI History: Reports: Hx Gastroesophageal Reflux Disease, Hx Hiatal Hernia Musculoskeletal History: Reports: Other Musculoskeletal History - weakness, orthopedic surgeries Bilateral Knee Replacement Sensory History: Reports: Hx Cataracts - R eye Denies: Hx Contacts or Glasses, Hx Hearing Aid Opthamlomology History: Reports: Hx Cataracts - R eye Denies: Hx Contacts or Glasses Neurological History: Reports: Hx Dementia Psychiatric History: Reports: Hx Anxiety - Surgical History Surgery Procedure, Year, and Place: Bilateral knee replacement, bunion surgery Hx Anesthesia Reactions: No Infectious Disease History: No Infectious Disease History: Denies: Traveled Outside the [place] in Last 30 Days - Family History Known Family History: Negative: Cardiac Disease, Hypertension, Diabetes - Social History Alcohol Use: None Substance Use Type: Reports: None Smoking Status (MU): Never Smoked Tobacco Review of Systems Constitutional: Negative Negative: Fever Eyes: Negative ENT: Negative Cardiovascular: Negative Respiratory: Negative Positive: Abdominal Pain - diffuse but mostly periumbilical, 10/10, does not radiate, onset 24 hours ago, Vomiting - once yesterday at 12PM with food appearance, today again with brown appearance, Nausea. Negative: Diarrhea Genitourinary: Negative Musculoskeletal: Negative Skin: Negative Neurological: Negative Psychological: Normal All Other Systems Reviewed And Are Negative: Yes Physical Exam - Summary Physical Exam Summary: VITAL SIGNS: Reviewed. GENERAL: Patient is a well-developed and nourished female who is lying comfortable in the stretcher. ~Patient is not in any acute respiratory distress. HEAD AND FACE: Normocephalic and atraumatic. EYES: PERRLA, EOMI x 2, No injected conjunctiva. EARS: Hearing grossly intact. Ear canals and tympanic membranes are WNL. MOUTH: Dry mouth mucosa. Oropharynx within normal limits. NECK: Supple, trachea is midline, no adenopathy, no JVD. CHEST: Symmetric, no tenderness at palpation LUNGS: Clear to auscultation bilaterally. No wheezing or crackles. CVS: RRR, S1 and S2 present, no murmurs or gallops appreciated. ABDOMEN: Diffuse abdominal pain but mostly in the periumbilical area. Soft, non- tender. No signs of distention. Positive bowel sounds. No rebound no guarding, and no masses palpated. No abdominal bruit or pulsations. EXTREMITIES: FROM in all major joints, no edema, no cyanosis or clubbing. NEURO: Alert and oriented x 3. No acute neurological deficits. Speech is normal. SKIN: She is pale. Dry and warm Triage Information Reviewed: Yes Vital Signs On Initial Exam: Initial Vitals Temp Pulse Resp BP Pulse Ox 99 F 118 16 163/107 95 10/16/16 15:25 10/16/16 15:25 10/16/16 15:25 10/16/16 15:25 10/16/16 15:25 Vital Signs Reviewed: Yes Diagnostics - Vital Signs Vital Signs Temp Pulse Resp BP Pulse Ox 10/16/16 17:00 108 19 167/108 96 10/16/16 16:58 23 167/110 10/16/16 16:34 98.5 F 119 17 187/116 96 10/16/16 15:25 99 F 118 16 163/107 95 - Laboratory Lab Results: Lab Results 10/16/16 10/16/16 10/16/16 Range/Units 18:15 18:15 18:15 WBC 13.6 H (3.5-10.8) 10^3/ul RBC 4.88 (4.0-5.4) 10^6/ul Hgb 13.8 (12.0-16.0) g/dl Hct 42 (35-47) % MCV 86 (80-97) fL MCH 28 (27-31) pg MCHC 33 (31-36) g/dl RDW 15 (10.5-15) % Plt Count 321 (150-450) 10^3/ul MPV 8 (7.4-10.4) um3 Neut % (Auto) 90.6 H (38-83) % Lymph % (Auto) 5.3 L (25-47) % Mcduffie % (Auto) 3.9 (1-9) % Eos % (Auto) 0 (0-6) % Baso % (Auto) 0.2 (0-2) % Absolute Neuts (auto) 12.3 H (1.5-7.7) 10^3/ul Absolute Lymphs (auto) 0.7 L (1.0-4.8) 10^3/ul Absolute Monos (auto) 0.5 (0-0.8) 10^3/ul Absolute Eos (auto) 0 (0-0.6) 10^3/ul Absolute Basos (auto) 0 (0-0.2) 10^3/ul Absolute Nucleated RBC 0.01 10^3/ul Nucleated RBC % 0.1 Sodium 135 (133-145) mmol/L Potassium 3.2 L (3.5-5.0) mmol/L Chloride 94 L (101-111) mmol/L Carbon Dioxide 27 (22-32) mmol/L Anion Gap 14 H (2-11) mmol/L BUN 17 (6-24) mg/dL Creatinine 0.88 (0.51-0.95) mg/dL Est GFR ( Amer) 79.7 (>60) Est GFR (Non-Af Amer) 62.0 (>60) BUN/Creatinine Ratio 19.3 (8-20) Glucose 164 H (70-100) mg/dL Lactic Acid 2.2 H* (0.5-2.0) mmol/L Calcium 9.9 (8.6-10.3) mg/dL Total Bilirubin 0.60 (0.2-1.0) mg/dL AST 18 (13-39) U/L ALT 14 (7-52) U/L Alkaline Phosphatase 82 (34-104) U/L C-Reactive Protein 19.14 H (< 5.00) mg/L B-Natriuretic Peptide ( - 100) pg/mL Total Protein 7.9 (6.4-8.9) g/dL Albumin 4.2 (3.2-5.2) g/dL Globulin 3.7 (2-4) g/dL Albumin/Globulin Ratio 1.1 (1-3) Amylase 17 L (29-103) U/L Lipase 10 L (11.0-82.0) U/L 07/30/17 Range/Units 18:15 WBC (3.5-10.8) 10^3/ul RBC (4.0-5.4) 10^6/ul Hgb (12.0-16.0) g/dl Hct (35-47) % MCV (80-97) fL MCH (27-31) pg MCHC (31-36) g/dl RDW (10.5-15) % Plt Count (150-450) 10^3/ul MPV (7.4-10.4) um3 Neut % (Auto) (38-83) % Lymph % (Auto) (25-47) % Mcduffie % (Auto) (1-9) % Eos % (Auto) (0-6) % Baso % (Auto) (0-2) % Absolute Neuts (auto) (1.5-7.7) 10^3/ul Absolute Lymphs (auto) (1.0-4.8) 10^3/ul Absolute Monos (auto) (0-0.8) 10^3/ul Absolute Eos (auto) (0-0.6) 10^3/ul Absolute Basos (auto) (0-0.2) 10^3/ul Absolute Nucleated RBC 10^3/ul Nucleated RBC % Sodium (133-145) mmol/L Potassium (3.5-5.0) mmol/L Chloride (101-111) mmol/L Carbon Dioxide (22-32) mmol/L Anion Gap (2-11) mmol/L BUN (6-24) mg/dL Creatinine (0.51-0.95) mg/dL Est GFR ( Amer) (>60) Est GFR (Non-Af Amer) (>60) BUN/Creatinine Ratio (8-20) Glucose (70-100) mg/dL Lactic Acid (0.5-2.0) mmol/L Calcium (8.6-10.3) mg/dL Total Bilirubin (0.2-1.0) mg/dL AST (13-39) U/L ALT (7-52) U/L Alkaline Phosphatase (34-104) U/L C-Reactive Protein (< 5.00) mg/L B-Natriuretic Peptide 191 H ( - 100) pg/mL Total Protein (6.4-8.9) g/dL Albumin (3.2-5.2) g/dL Globulin (2-4) g/dL Albumin/Globulin Ratio (1-3) Amylase (29-103) U/L Lipase (11.0-82.0) U/L Result Diagrams: 10/16/16 18:15 10/16/16 18:15 Lab Statement: Any lab studies that have been ordered have been reviewed, and results considered in the medical decision making process. - CT CT Abd/Pel CT Interpretation: Positive (See Comments) - 1. There appears to have been progression of the patient's very large hiatal hernia with appearance of the gastroduodenal junction herniating above the diaphragm causing obstruction and subsequently causing the stomach to be massively dilated with fluid and debris. This could be a gastric volvulus and correlation should be made to clinical signs and symptoms of vascular compromise. Further characterization could be made including CT of the chest (part of the stomach is cut off of the field of view due to spray adequately imaging the lung bases) and giving the patient a small amount of oral contrast at that would be tolerated. 2. Urinary bladder is distended yielding an approximate volume of 1.7 L. Please correlate to insensate /neurogenic bladder and/or bladder outlet obstruction. 3. Additional chronic and degenerative changes described in body the report. Gastric findings were discussed with Dr. Sanchez over the telephone at 2158 hours on October 16, 2016. CT Interpretation Completed By: Radiologist - EKG 20:48 Cardiac Rate: Tachycardia - 101 BPM EKG Interpretation: Sinus tachycardia. No chances since 08/07/16. Re-Evaluation - Re-Evaluation First Eval Re-Evaluation Time: 22:06 Change: Unchanged Abdominal Pain Fem Course/Dx - Course Course Of Treatment: The pt is a 80 y/o F accompanied by her daughter and presenting to the ED c/o abd pain that began 24 hours ago. The pain does not radiate. The pain is rated 10/10. Her last BM was yesterday, and it was normal. Pt additionally c/o nausea and vomiting (once yesterday at 12PM with food appearance, today again with brown appearance). Pt denies diarrhea. PMHx: Alzheimers, anxiety, hypothyroidism, HTN, hiatal hernia. PSHx: bilateral knee replacement. SHx: no alcohol, no illicit drugs, no smoking. She lives with her daughter. Test results WBC 13.6, potassium 3.2, glucose 144, and CRP 19.14. CT Abd/Pel reveals 1. There appears to have been progression of the patient's very large hiatal hernia with appearance of the gastroduodenal junction herniating above the diaphragm causing. obstruction and subsequently causing the stomach to be massively dilated with fluid and debris. This could be a gastric volvulus and correlation should be made to clinical signs and symptoms of vascular compromise. Further characterization could be made including CT of the chest (part of the stomach is cut off of the field of view due to spray adequately imaging the lung bases) and giving the patient a small amount of oral contrast at that would be tolerated. 2. Urinary bladder is distended yielding an approximate volume of 1.7 L. Please correlate to insensate/ neurogenic bladder and/or bladder outlet obstruction. 3. Additional chronic and degenerative changes described in body the report. Gastric findings were discussed with Dr. Sanchez over the telephone at 2158 hours on 2016. In the ED course, the patient was hydrated with normal saline. She was given Zofran and morphine for the pain. She was given 1 dose of labetolol for uncontrolled hypertension. I ordered an NG tube since the patient has a gastric outlet obstruction. I discussed the case with Dr. Bustillo, surgery, who requests that the patient be admitted to the hospital. Therefore, I discussed the case with Dr. Gamble, who admits the patient to the hospital. - Diagnoses Differential Diagnosis: Positive: Bowel Obstruction, Constipation, Diverticulitis, Pancreatitis, Urinary Tract Infection Provider Diagnoses: Gastric outlet obstruction - Provider Notifications Discussed Care Of Patient With: Alec Bustillo Time Discussed With Above Provider: 22:00 Instructed by Provider To: Other - Discussed patient care. He recommends an NG tube, which I ordered prior to our discussion, and admission to the hospital. Also consulted with Dr. Gamble, public affairs director, who will admit the patient at 22:11 Discharge - Discharge Plan Condition: Fair Disposition: ADMITTED TO [facility] Referrals: Miky Shanks, STAGE DRIVER [Primary Care Provider] - The documentation as recorded by the [place] ocasio Thomas accurately reflects the service I personally performed and the decisions made by me, Mirza Sanchez MD.
[2016-10-16] MEDS ORDERED: Ondansetron INJ* 2 MG/ML VIAL IV PRN (22:45)
[2016-10-16] MEDS ORDERED: Morphine INJ* 2 MG/ML 1 ML SYRINGE IV PRN (22:47)
[2016-10-16] MEDS: NS 0.9% w/ 20 Meq KCL 1000 ML* 1,000 ML IV SCH (23:49)
[2016-10-17] MEDS: Pantoprazole IV* 80 MG in NS 0.9% 250 ML* 250 ML IVPB SCH ×3 (00:12→20:17)
[2016-10-17] MEDS: Sucralfate SUSP 1 GM/10 ml 10 ML UDC PO SCH ×2 (00:14→05:50)
[2016-10-17] MEDS: Heparin VIAL(*) 5000 UNITS/ML VIAL (FIVE THOUSAND) SUBCUT SCH ×3 (05:48→21:28)
[2016-10-17] MEDS: Levothyroxine INJ* 100 MCG/5 ML VIAL IV SCH (05:49)
[2016-10-17 07:27] LABS: Hematocrit 35 % (35-47); Hemoglobin 11.5 g/dl (12.0-16.0); Mean Corpuscular HGB Conc 33 g/dl (31-36); Mean Corpuscular Hemoglobin 28 pg (27-31); Mean Corpuscular Volume 86 fL (80-97); Mean Platelet Volume 8 um3 (7.4-10.4); Red Blood Count 4.07 10^6/ul (4.0-5.4); Red Cell Distribution Width 15 % (10.5-15)
[2016-10-17 07:44] LABS: BUN/Creatinine Ratio 29.6 (8-20); Calcium 8.4 mg/dL (8.6-10.3); EGFR African American 102.1 (>60); EGFR Non-African American 79.4 (>60); Potassium 3.1 mmol/L (3.5-5.0)
--- NOTE | 2016-10-17 07:49 | RAD ---
Indication: Check nasogastric tube placement Single frontal view of the chest performed at 0102 hours was reviewed. Comparison is made with previous exam dated August 07, 2016. Cardiomegaly is noted. Lung solorio demonstrate no pleural fluid, pneumonia or pneumothorax. Small left pleural effusion is noted. Gastric tube placement appears to be within the hiatal hernia. IMPRESSION: CARDIOMEGALY WITH LEFT PLEURAL EFFUSION. LARGE HIATAL HERNIA IS NOTED.
[2016-10-17] MEDS ORDERED: Memantine TAB* 5 MG PO SCH (09:00)
--- NOTE | 2016-10-17 09:50 | PN ---
Subjective Date of Service: 10/17/16 Interval History: Pt states she is doing ok. She denies any SOB. When asked if she is having any pain she states her R knee is bothering her. She denies abdominal pain until I palpate her abdomen then she states she is having some discomfort. Objective Active Medications: Heparin Sodium (Porcine) (Heparin Vial(*)) 5,000 units SUBCUT Q8HR [facility] Last Admin: 10/17/16 05:48 Dose: 5,000 units Potassium Chloride/Sodium Chloride (Ns 0.9% W/ 20 Meq Kcl 1000 Ml*) 1,000 mls @ 100 mls/hr IV PER RATE [facility] Last Admin: 10/16/16 23:49 Dose: 100 mls/hr Pantoprazole Sodium 80 mg/ (Sodium Chloride) 250 mls @ 25 mls/hr IVPB Q10H [facility] Last Admin: 10/17/16 00:12 Dose: 25 mls/hr Levothyroxine Sodium (Synthroid Inj*) 62.5 mcg IV 0600 [facility] Last Admin: 10/17/16 05:49 Dose: 62.5 mcg Memantine (Namenda Tab*) 5 mg PO BID [facility] Mirtazapine (Remeron Tab*) 15 mg PO BEDTIME [facility] Morphine Sulfate (Morphine Inj (Syringe)*) 2 mg IV Q4H PRN PRN Reason: PAIN - MILD Ondansetron HCl (Zofran Inj*) 4 mg IV Q4H PRN PRN Reason: NAUSEA Risperidone (Risperdal) 0.25 mg PO BEDTIME [facility] Sucralfate (Sucralfate Susp) 1 gm PO Q6H [facility] Last Admin: 10/17/16 05:50 Dose: 1 gm Vital Signs 10/16/16 10/17/16 10/17/16 23:30 00:41 04:17 Temperature 98.7 F 98.0 F Pulse Rate 96 102 Respiratory 18 18 16 Rate Blood Pressure 104/58 132/78 (mmHg) O2 Sat by Pulse 96 94 Oximetry Oxygen Devices in Use Now: None Appearance: Elderly female lying in bed, NG tube in place, NAD Eyes: No Scleral Icterus Ears/Nose/Mouth/Throat: Mucous Membranes Moist Respiratory: Symmetrical Chest Expansion and Respiratory Effort, Clear to Auscultation Cardiovascular: NL Sounds; No Murmurs; No JVD, RRR, No Edema Abdominal: - - BS+ soft, mildly tender to palpation LUQ/LLQ Extremities: No Clubbing, Cyanosis Skin: No Rash or Ulcers, No Nodules or Sclerosis Neurological: - - alert, pleasantly confused Result Diagrams: 10/17/16 07:07 10/17/16 07:07 Additional Lab and Data: Lab Results 10/16/16 10/16/16 10/16/16 Range/Units 18:15 18:15 18:15 WBC 13.6 H (3.5-10.8) 10^3/ul RBC 4.88 (4.0-5.4) 10^6/ul Hgb 13.8 (12.0-16.0) g/dl Hct 42 (35-47) % MCV 86 (80-97) fL MCH 28 (27-31) pg MCHC 33 (31-36) g/dl RDW 15 (10.5-15) % Plt Count 321 (150-450) 10^3/ul MPV 8 (7.4-10.4) um3 Neut % (Auto) 90.6 H (38-83) % Lymph % (Auto) 5.3 L (25-47) % [place] % (Auto) 3.9 (1-9) % Eos % (Auto) 0 (0-6) % Baso % (Auto) 0.2 (0-2) % Absolute Neuts (auto) 12.3 H (1.5-7.7) 10^3/ul Absolute Lymphs (auto) 0.7 L (1.0-4.8) 10^3/ul Absolute Monos (auto) 0.5 (0-0.8) 10^3/ul Absolute Eos (auto) 0 (0-0.6) 10^3/ul Absolute Basos (auto) 0 (0-0.2) 10^3/ul Absolute Nucleated RBC 0.01 10^3/ul Nucleated RBC % 0.1 Sodium 135 (133-145) mmol/L Potassium 3.2 L (3.5-5.0) mmol/L Chloride 94 L (101-111) mmol/L Carbon Dioxide 27 (22-32) mmol/L Anion Gap 14 H (2-11) mmol/L BUN 17 (6-24) mg/dL Creatinine 0.88 (0.51-0.95) mg/dL Est GFR ( Amer) 79.7 (>60) Est GFR (Non-Af Amer) 62.0 (>60) BUN/Creatinine Ratio 19.3 (8-20) Glucose 164 H (70-100) mg/dL Lactic Acid 2.2 H* (0.5-2.0) mmol/L Calcium 9.9 (8.6-10.3) mg/dL Total Bilirubin 0.60 (0.2-1.0) mg/dL AST 18 (13-39) U/L ALT 14 (7-52) U/L Alkaline Phosphatase 82 (34-104) U/L C-Reactive Protein 19.14 H (< 5.00) mg/L B-Natriuretic Peptide ( - 100) pg/mL Total Protein 7.9 (6.4-8.9) g/dL Albumin 4.2 (3.2-5.2) g/dL Globulin 3.7 (2-4) g/dL Albumin/Globulin Ratio 1.1 (1-3) Amylase 17 L (29-103) U/L Lipase 10 L (11.0-82.0) U/L //17 Range/Units 18:15 WBC (3.5-10.8) 10^3/ul RBC (4.0-5.4) 10^6/ul Hgb (12.0-16.0) g/dl Hct (35-47) % MCV (80-97) fL MCH (27-31) pg MCHC (31-36) g/dl RDW (10.5-15) % Plt Count (150-450) 10^3/ul MPV (7.4-10.4) um3 Neut % (Auto) (38-83) % Lymph % (Auto) (25-47) % [place] % (Auto) (1-9) % Eos % (Auto) (0-6) % Baso % (Auto) (0-2) % Absolute Neuts (auto) (1.5-7.7) 10^3/ul Absolute Lymphs (auto) (1.0-4.8) 10^3/ul Absolute Monos (auto) (0-0.8) 10^3/ul Absolute Eos (auto) (0-0.6) 10^3/ul Absolute Basos (auto) (0-0.2) 10^3/ul Absolute Nucleated RBC 10^3/ul Nucleated RBC % Sodium (133-145) mmol/L Potassium (3.5-5.0) mmol/L Chloride (101-111) mmol/L Carbon Dioxide (22-32) mmol/L Anion Gap (2-11) mmol/L BUN (6-24) mg/dL Creatinine (0.51-0.95) mg/dL Est GFR ( Amer) (>60) Est GFR (Non-Af Amer) (>60) BUN/Creatinine Ratio (8-20) Glucose (70-100) mg/dL Lactic Acid (0.5-2.0) mmol/L Calcium (8.6-10.3) mg/dL Total Bilirubin (0.2-1.0) mg/dL AST (13-39) U/L ALT (7-52) U/L Alkaline Phosphatase (34-104) U/L C-Reactive Protein (< 5.00) mg/L B-Natriuretic Peptide 191 H ( - 100) pg/mL Total Protein (6.4-8.9) g/dL Albumin (3.2-5.2) g/dL Globulin (2-4) g/dL Albumin/Globulin Ratio (1-3) Amylase (29-103) U/L Lipase (11.0-82.0) U/L Assess/Plan/Problems-Billing Ms Lamar is a 80 yo F who has a h/o dementia and hypothyroidism who presented to the ER with c/o vomiting and was found to have gastric outlet obstruction related to a large hiatal hernia. - Patient Problems (1) Gastric outlet obstruction Current Visit: Yes Status: Acute Code(s): K31.1 - ADULT HYPERTROPHIC PYLORIC STENOSIS SNOMED Code(s): 645884376 Comment: The patient's hiatal hernia appears to have worsened in that the gastric duodenal junction in now in the hiatus leading to her obstruction. Dr. Bustillo has seen the patient in consultation and for now would like to continue NG tube drainage. Will need to monitor and determine if she will need surgery. In preparation for possible surgery will get echo for cardiac eval. (2) HTN (hypertension) Current Visit: Yes Status: Acute Code(s): I10 - ESSENTIAL (PRIMARY) HYPERTENSION SNOMED Code(s): 47818724 Comment: BP is under good control off medications. Monitor. (3) Hypothyroid Current Visit: No Status: Acute Code(s): E03.9 - HYPOTHYROIDISM, UNSPECIFIED SNOMED Code(s): 35461362 Comment: Continue Synthroid. (4) Dementia Current Visit: Yes Status: Acute Code(s): F03.90 - UNSPECIFIED DEMENTIA WITHOUT BEHAVIORAL DISTURBANCE SNOMED Code(s): 18947068 Comment: Hold oral meds as she is NPO. (5) DVT prophylaxis Current Visit: Yes Status: Acute Code(s): JOU2879 - SNOMED Code(s): 148373685 Comment: SQ heparin (6) Full code status Current Visit: Yes Status: Acute Code(s): Z78.9 - OTHER SPECIFIED HEALTH STATUS SNOMED Code(s): 254185603
[2016-10-17] MEDS: NS 0.9% w/ 20 Meq KCL 1000 ML* 1,000 ML IV SCH ×2 (10:12→20:19)
--- NOTE | 2016-10-17 12:18 | HP ---
CC: Miky Shanks NP * HISTORY AND PHYSICAL: DATE OF ADMISSION: 10/16/16 CHIEF COMPLAINT: Nausea, vomiting, and abdominal pain. HISTORY OF PRESENT ILLNESS: The patient is a 80-year-old woman, who presents to [facility] with a chief complaint of abdominal pain, nausea, and vomiting. Please note most of the history is given by the daughter as the patient has dementia. She said yesterday, she was doing quite well after her discharge last time and in fact was suffering no problems from nausea, vomiting , or belly pain. However, after yesterday, suddenly she did not feel well. All she had was Jell-O and watermelon. She started vomiting and brown fluid was coming out. She complained of abdominal pain. They were hoping it would pass. Her last bowel movement was yesterday. However, since lunch yesterday, she has not been able to keep anything down. Her daughter was hopeful when she went to the front porch today and sat down and was feeling her usual self, but then the pain, the nausea, and vomiting came back, so they brought her to the ER. In the ER, the patient was evaluated and CAT scan was significant for worsening of her hiatal hernia and causing obstruction. PAST MEDICAL HISTORY: Dementia; hypothyroidism; right and left knee surgery; foot surgery, unknown type; hiatal hernia; severe esophagitis. CURRENT MEDICATIONS: 1. Risperidone 0.25 mg at bedtime. 2. Sucralfate 1 g p.o. b.i.d. 3. Sucralfate suspension 1 g p.o. q.6 hours. 4. Omeprazole 20 mg twice daily. 5. Remeron 15 mg at bedtime. 6. Namenda 5 mg twice daily. 7. Synthroid 125 mcg daily. 8. Cholecalciferol 1000 units daily. ALLERGIES: She has no known drug allergies. FAMILY HISTORY: Reviewed and noncontributory. SOCIAL HISTORY: No alcohol, recreational drug use, or tobacco use. The patient was living with her daughter at that time. Keshia Lamar, , is her healthcare proxy. REVIEW OF SYSTEMS: Unable to perform on the patient as she is too confused with her dementia. PHYSICAL EXAMINATION GENERAL: Very pleasant woman lying in bed, in no acute distress. VITAL SIGNS: Blood pressure 141/82, pulse oxygenation is 94%, respiratory rate 22 breaths per minute, heart rate 90 beats per minute, temperature is 98.5 degrees. HEENT: Normocephalic, atraumatic. Pupils equal, round, reactive. She has got dry mucous membranes and she has an NG tube in place draining brown fluid. NECK: Supple. No JVD, bruits, or palpable thyroid CHEST: Clear to auscultation and percussion bilaterally. CARDIOVASCULAR: S1, S2 appreciated. Regular rate and rhythm. ABDOMEN: Positive bowel sounds, lower quadrant slightly distended, minimally tender. No rebound, guarding, or rigidity. EXTREMITIES: No cyanosis, clubbing, or edema. +2 pulses bilaterally. NEURO: Alert and oriented x1. Moves all extremities. SKIN: No distinct rashes. No abnormalities. DIAGNOSTIC STUDIES/LAB DATA: Sodium 135, potassium 3.2, CO2 27, BUN 17, creatinine 0.88, glucose 164, lactic acid 2.2. CRP 19.14. White count 13.6, hemoglobin 32.8, hematocrit 42, platelets 321. EKG shows sinus tachycardia at a rate of 101 beats per minute, normal axis. No acute ST or T wave changes, PVC. ASSESSMENT AND PLAN: 1. Obstruction due to worsening herniation of hiatal hernia. We will admit to short stay surgical unit. Surgery to see in the a.m. Normal saline with 20 of K at a rate of 100 cc an hour, Zofran p.r.n. for nausea, morphine p.r.n. for pain. 2. Hypothyroidism, stable. Continue Synthroid 62.5 mcg IV which is half the dose of the oral medication. 3. Dementia, stable. Continue Namenda. 4. FEN. NPO, IV fluids as noted, and NG tube to suction. 5. The patient is a full code. TIME SPENT: Over 80 minutes was spent on this H and P; more than 45 minutes of which was spent direct [id number] contact with the patient in evaluation, physical exam, counseling, and coordination of care. [id number]/[facility] #: [id number] MTDD
--- NOTE | 2016-10-17 14:15 | ECHO ---
Patient: ULISES WOLFE [facility] Rec#: [id number] : 1935 Date: 10/17/2016 Age: 80y Height: 157.5 cm / 62.0 in Weight: 63.5 kg / 140.0 lbs Sex: F BSA: 1.64 Room#: 337 Admit Date#: 10/17/2016 Type: Inpatient Referring: Azra Weir DO Reading: Ramon Pham MD Materials Planner/Production Planner: Sisi Santiago RN RDCS CC: Miky Shanks, SOFI Transthoracic Echocardiogram Indication: HTN, tachycardia BP: 157/91 HR: 96 Rhythm: NSR Findings History: HTN, hypothyroidism, dementia, severe esophagitis, large hiatal hernia with gastric outlet obstruction Technical Comments: The study quality is fair. Completed at 1350. Left Ventricle: The left ventricular chamber size is decreased. Mild concentric left ventricular hypertrophy is observed. There is increased basal septal hypertrophy noted without evidence of an increased gradient across the left ventricular outflow tract. The septal knuckle measures 1.7 cm. Global left ventricular wall motion and contractility are within normal limits. There is normal left ventricular systolic function. The estimated ejection fraction is 60-65%. There is an E to A reversal in the mitral valve flow pattern suggestive of diastolic dysfunction. Left Atrium: The left atrium is mildly dilated. Right Ventricle: The right ventricle is slightly dilated. The right ventricular global systolic function is normal. Right Atrium: The right atrium is mildly dilated. by 2d eval. Aortic Valve: The aortic valve is trileaflet. The aortic valve leaflets are mildly thickened. There is mild aortic regurgitation. There is no evidence of aortic stenosis. Mitral Valve: Mild mitral annular calcification present. The mitral valve leaflets are mildly thickened. There is systolic bowing of the mitral valve without evidence of prolapse. There is trace to mild mitral regurgitation. There is no evidence of mitral stenosis. Tricuspid Valve: The tricuspid valve leaflets are normal. There is moderate tricuspid regurgitation. There is evidence of moderate pulmonary hypertension. There is no tricuspid stenosis. Pulmonic Valve: The pulmonic valve structure is not well visualized. There is a trace pulmonic regurgitation. There is no pulmonic stenosis. Pericardium: There is no significant pericardial effusion. A pericardial fat pad is visualized. Aorta: There is mild dilatation of the ascending aorta. There is no dilatation of the aortic arch. There is mild dilatation of the aortic root. Pulmonary Artery: The main pulmonary artery appears normal. Venous: The venous system is not well visualized. The inferior vena cava is not visualized. Summary: There was not any prior study for comparison. Conclusions Mild concentric left ventricular hypertrophy is observed. There is increased basal septal hypertrophy noted without evidence of an increased gradient across the left ventricular outflow tract. The septal knuckle measures 1.7 cm. The estimated ejection fraction is 60-65%. There is an E to A reversal in the mitral valve flow pattern suggestive of diastolic dysfunction. The right atrium is mildly dilated. There is mild aortic regurgitation. There is systolic bowing of the mitral valve without evidence of prolapse. There is trace to mild mitral regurgitation. There is moderate tricuspid regurgitation. There is evidence of moderate pulmonary hypertension. There is mild dilatation of the ascending aorta. There is mild dilatation of the aortic root. Measurements Name Value Normal Range RVDdMajor (2D) 4.3 cm (2.2 - 4.4) RAd ISD 4CH 4.2 cm (3.4 - 4.9) RA (A4C)W 5 cm (2.9 - 4.6) IVSd (2D) 1.2 cm (0.6 - 1) LVPWd (2D) 1.2 cm (0.6 - 1) LVIDd (2D) 3.1 cm (3.6 - 5.4) LVIDs (2D) 2.2 cm - LV FS (2D) 29 % (25 - 45) Aortic Annulus 1.8 cm (1.4 - 2.6) Ao root diameter (2D) 3.8 cm (2.1 - 3.5) Ascending Ao 3.5 cm (2.1 - 3.4) Aortic arch 2.3 cm (1.8 - 3.4) LA dimension (AP) 2D 1.9 cm (2.3 - 3.8) LAd ISD 4CH 3.9 cm (2.9 - 5.3) LA ISD 4CH W 4.3 cm (2.5 - 4.5) Name Value Normal Range LA ESV SP 4CH (A/L) 47 ml - LA ESV SP 2CH (A/L) 25 ml - LA ESV BP (A/L) 34 ml - LA ESV BP (A/L) index 21 ml/m2 - LA ESV SP 4CH (MOD) 45 ml - LA ESV SP 2CH (MOD) 25 ml - Name Value Normal Range MV E-wave Vmax 0.98 m/sec - MV deceleration time 192 msec - MV A-wave Vmax 1.2 m/sec - MV E:A ratio 0.79 ratio - LV lateral e' Vmax 0.14 m/sec - LV E:e' lateral ratio 7 ratio - Name Value Normal Range AV Vmax 1.5 m/sec - AV VTI 30.4 cm - AV peak gradient 8.6 mmHg - AV mean gradient 4.8 mmHg - LVOT Vmax 1.1 m/sec - LVOT VTI 20.2 cm - LVOT peak gradient 4.9 mmHg - LVOT mean gradient 3 mmHg - AR PHT 390 msec - Name Value Normal Range TR Vmax 3.5 m/sec - TR peak gradient 49 mmHg - RAP 8 mmHg - RVSP 57 mmHg - Name Value Normal Range PV Vmax 0.88 m/sec -
--- NOTE | 2016-10-17 20:56 | CONS ---
CC: Miky Shanks NP; Geovany Richards MD * CONSULTATION REPORT: DATE OF CONSULT: 10/17/16 HISTORY: The patient is a 80-year-old female admitted with gastric outlet obstruction from a large paraesophageal hiatal hernia. She is admitted to medical service and I have been asked to provide consultation. The patient is pleasantly demented, unable to really participate in any discussion. By history , she was here at the [facility] approximately 2 months ago with some epigastric pain, nausea and vomiting. She was known to have a large paraesophageal hiatal hernia at that time and was found on endoscopy to have severe esophagitis and was maintained on medical therapy for that. She presented with epigastric pain and vomiting. PHYSICAL EXAMINATION: On examination now, the abdomen is soft, nontender. I do not sense any fullness in the epigastrium. I cannot palpate a dilated stomach. She does not really sense any pressure or discomfort when I palpate the epigastrium and the upper abdomen. I have reviewed her CT scan which shows a substantial paraesophageal hiatal hernia with a concern for possible twisting. It is causing obstruction at the gastroduodenal junction. She currently has a nasogastric tube that is apparently in good position based on a chest x-ray done subsequent to its placement. IMPRESSION: A 80-year-old pleasantly demented female with known severe esophagitis and long-term paraesophageal hiatal hernia, who now presents with acute or subacute obstructing findings from the hiatal hernia. She has been drained with a nasogastric tube and currently seems to have no pain or tenderness that I can ascertain. She may benefit from repeat endoscopy to see where we are in terms of the esophagitis and alternatively an upper GI series could be obtained to see if we have improved flow through the stomach now that she has been decompressed. She would be at moderately increased risk for surgical intervention and that could be entertained depending on her other medical evaluation. We will follow her along with you. [id number]/[facility] #: [id number] SAM
[2016-10-17] MEDS ORDERED: Mirtazapine TAB* 15 MG PO SCH (21:00)
[2016-10-18] MEDS: Heparin VIAL(*) 5000 UNITS/ML VIAL (FIVE THOUSAND) SUBCUT SCH ×3 (05:55→22:38)
[2016-10-18] MEDS: Levothyroxine INJ* 100 MCG/5 ML VIAL IV SCH (05:56)
[2016-10-18] MEDS: Pantoprazole IV* 80 MG in NS 0.9% 250 ML* 250 ML IVPB SCH (06:02)
[2016-10-18] MEDS: NS 0.9% w/ 20 Meq KCL 1000 ML* 1,000 ML IV SCH ×2 (06:02→18:02)
[2016-10-18] MEDS ORDERED: Haloperidol INJ IV/IM* 5 MG/ML AMP IV SLOW PU PRN (10:44)
[2016-10-18 11:26] LABS: Hematocrit 31 % (35-47); Hemoglobin 10.1 g/dl (12.0-16.0); Mean Corpuscular HGB Conc 32 g/dl (31-36); Mean Corpuscular Hemoglobin 28 pg (27-31); Mean Corpuscular Volume 88 fL (80-97); Mean Platelet Volume 8 um3 (7.4-10.4); Red Blood Count 3.55 10^6/ul (4.0-5.4); Red Cell Distribution Width 15 % (10.5-15); White Blood Count 6.2 10^3/ul (3.5-10.8)
[2016-10-18 11:48] LABS: Calcium 8.2 mg/dL (8.6-10.3); EGFR African American 117.2 (>60); EGFR Non-African American 91.2 (>60); Potassium 3.6 mmol/L (3.5-5.0)
[2016-10-18 12:36] LABS: Ferritin 29.7 ng/mL (11-307)
--- NOTE | 2016-10-18 13:12 | RAD ---
INDICATION: Gastric outlet obstruction. COMPARISON: Comparison is made with a prior CT of the abdomen and pelvis from October 16, 2016. Technique: A single contrast upper GI series examination was performed. Approximately 1.2 minutes of intermittent fluoroscopic guidance were used during the exam. The exam is limited. The patient was unable to be positioned for the standard images. Findings: Initial api product manager images demonstrate residual contrast within the colon from the prior CT study. There is a large hiatal hernia containing almost the entire stomach in a paraesophageal location. The stomach has undergone organoaxial rotation such that the antrum is located superior in the fundus points inferior. The stomach is mildly distended and the gastric distention noted on the prior study has improved significantly. The stomach empties slowly although there was no evidence for obstruction. The ligament of Treitz does not appear to be in left upper quadrant and the proximal small bowel is abnormal in location and projects in the midline over the mid abdomen. There appears to be a small left lower lobe infiltrate and small left pleural effusion. IMPRESSION: 1. LARGE HIATAL HERNIA CONTAINING AN ORGANOAXIAL ROTATED STOMACH DESCRIBED. THE STOMACH IS MUCH LESS DISTENDED THAN ON THE PRIOR CT STUDY AND THERE IS NO EVIDENCE FOR OBSTRUCTION. 2. ABNORMAL LOCATION OF THE PROXIMAL SMALL BOWEL. 3. SMALL LEFT LOWER LOBE INFILTRATE AND PLEURAL EFFUSION. CPT II Codes: 6045F
--- NOTE | 2016-10-18 15:26 | PN ---
Subjective Date of Service: 10/18/16 Interval History: Pt is feeling ok. She denies any pain or SOB. She states she feels thirsty. Objective Active Medications: Haloperidol Lactate (Haldol Inj Iv/Im*) 0.5 mg IV SLOW PU Q6H PRN PRN Reason: AGITATION Heparin Sodium (Porcine) (Heparin Vial(*)) 5,000 units SUBCUT Q8HR [facility] Last Admin: 10/18/16 14:25 Dose: 5,000 units Potassium Chloride/Sodium Chloride (Ns 0.9% W/ 20 Meq Kcl 1000 Ml*) 1,000 mls @ 100 mls/hr IV PER RATE [facility] Last Admin: 10/18/16 06:02 Dose: 100 mls/hr Pantoprazole Sodium 80 mg/ (Sodium Chloride) 250 mls @ 25 mls/hr IVPB Q10H [facility] Last Admin: 10/18/16 06:02 Dose: 25 mls/hr Iron Sucrose 200 mg/ Sodium (Chloride) 110 mls @ 110 mls/hr IVPB DAILY [facility] Stop: 10/20/16 16:00 Levothyroxine Sodium (Synthroid Inj*) 62.5 mcg IV 0600 [facility] Last Admin: 10/18/16 05:56 Dose: 62.5 mcg Morphine Sulfate (Morphine Inj (Syringe)*) 2 mg IV Q4H PRN PRN Reason: PAIN - MILD Ondansetron HCl (Zofran Inj*) 4 mg IV Q4H PRN PRN Reason: NAUSEA Vital Signs 10/17/16 10/17/16 10/17/16 15:38 19:11 19:33 Temperature 98.5 F 98.5 F Pulse Rate 95 91 Respiratory 19 18 17 Rate Blood Pressure 128/71 137/83 (mmHg) O2 Sat by Pulse 96 97 Oximetry 10/17/16 10/17/16 10/18/16 19:35 23:27 03:15 Temperature 98.0 F 98.5 F Pulse Rate 100 95 Respiratory 17 16 16 Rate Blood Pressure 136/77 129/77 (mmHg) O2 Sat by Pulse 93 94 Oximetry 10/18/16 10/18/16 10/18/16 07:35 08:00 11:27 Temperature 98.3 F 98.0 F Pulse Rate 85 86 Respiratory 14 14 15 Rate Blood Pressure 147/71 157/87 (mmHg) O2 Sat by Pulse 98 98 Oximetry Oxygen Devices in Use Now: None Appearance: Elderly female lying in bed, NAD Eyes: No Scleral Icterus Ears/Nose/Mouth/Throat: Mucous Membranes Moist Respiratory: Symmetrical Chest Expansion and Respiratory Effort, Clear to Auscultation Cardiovascular: NL Sounds; No Murmurs; No JVD, RRR, No Edema Abdominal: NL Sounds; No Tenderness; No Distention Extremities: No Clubbing, Cyanosis Skin: No Rash or Ulcers, No Nodules or Sclerosis Neurological: - - pleasantly confused Result Diagrams: 10/18/16 11:12 10/18/16 11:12 Additional Lab and Data: Lab Results 10/16/16 10/16/16 10/16/16 Range/Units 18:15 18:15 18:15 WBC 13.6 H (3.5-10.8) 10^3/ul RBC 4.88 (4.0-5.4) 10^6/ul Hgb 13.8 (12.0-16.0) g/dl Hct 42 (35-47) % MCV 86 (80-97) fL MCH 28 (27-31) pg MCHC 33 (31-36) g/dl RDW 15 (10.5-15) % Plt Count 321 (150-450) 10^3/ul MPV 8 (7.4-10.4) um3 Neut % (Auto) 90.6 H (38-83) % Lymph % (Auto) 5.3 L (25-47) % [place] % (Auto) 3.9 (1-9) % Eos % (Auto) 0 (0-6) % Baso % (Auto) 0.2 (0-2) % Absolute Neuts (auto) 12.3 H (1.5-7.7) 10^3/ul Absolute Lymphs (auto) 0.7 L (1.0-4.8) 10^3/ul Absolute Monos (auto) 0.5 (0-0.8) 10^3/ul Absolute Eos (auto) 0 (0-0.6) 10^3/ul Absolute Basos (auto) 0 (0-0.2) 10^3/ul Absolute Nucleated RBC 0.01 10^3/ul Nucleated RBC % 0.1 Sodium 135 (133-145) mmol/L Potassium 3.2 L (3.5-5.0) mmol/L Chloride 94 L (101-111) mmol/L Carbon Dioxide 27 (22-32) mmol/L Anion Gap 14 H (2-11) mmol/L BUN 17 (6-24) mg/dL Creatinine 0.88 (0.51-0.95) mg/dL Est GFR ( Amer) 79.7 (>60) Est GFR (Non-Af Amer) 62.0 (>60) BUN/Creatinine Ratio 19.3 (8-20) Glucose 164 H (70-100) mg/dL Lactic Acid 2.2 H* (0.5-2.0) mmol/L Calcium 9.9 (8.6-10.3) mg/dL Total Bilirubin 0.60 (0.2-1.0) mg/dL AST 18 (13-39) U/L ALT 14 (7-52) U/L Alkaline Phosphatase 82 (34-104) U/L C-Reactive Protein 19.14 H (< 5.00) mg/L B-Natriuretic Peptide ( - 100) pg/mL Total Protein 7.9 (6.4-8.9) g/dL Albumin 4.2 (3.2-5.2) g/dL Globulin 3.7 (2-4) g/dL Albumin/Globulin Ratio 1.1 (1-3) Amylase 17 L (29-103) U/L Lipase 10 L (11.0-82.0) U/L 07/30/17 Range/Units 18:15 WBC (3.5-10.8) 10^3/ul RBC (4.0-5.4) 10^6/ul Hgb (12.0-16.0) g/dl Hct (35-47) % MCV (80-97) fL MCH (27-31) pg MCHC (31-36) g/dl RDW (10.5-15) % Plt Count (150-450) 10^3/ul MPV (7.4-10.4) um3 Neut % (Auto) (38-83) % Lymph % (Auto) (25-47) % [place] % (Auto) (1-9) % Eos % (Auto) (0-6) % Baso % (Auto) (0-2) % Absolute Neuts (auto) (1.5-7.7) 10^3/ul Absolute Lymphs (auto) (1.0-4.8) 10^3/ul Absolute Monos (auto) (0-0.8) 10^3/ul Absolute Eos (auto) (0-0.6) 10^3/ul Absolute Basos (auto) (0-0.2) 10^3/ul Absolute Nucleated RBC 10^3/ul Nucleated RBC % Sodium (133-145) mmol/L Potassium (3.5-5.0) mmol/L Chloride (101-111) mmol/L Carbon Dioxide (22-32) mmol/L Anion Gap (2-11) mmol/L BUN (6-24) mg/dL Creatinine (0.51-0.95) mg/dL Est GFR ( Amer) (>60) Est GFR (Non-Af Amer) (>60) BUN/Creatinine Ratio (8-20) Glucose (70-100) mg/dL Lactic Acid (0.5-2.0) mmol/L Calcium (8.6-10.3) mg/dL Total Bilirubin (0.2-1.0) mg/dL AST (13-39) U/L ALT (7-52) U/L Alkaline Phosphatase (34-104) U/L C-Reactive Protein (< 5.00) mg/L B-Natriuretic Peptide 191 H ( - 100) pg/mL Total Protein (6.4-8.9) g/dL Albumin (3.2-5.2) g/dL Globulin (2-4) g/dL Albumin/Globulin Ratio (1-3) Amylase (29-103) U/L Lipase (11.0-82.0) U/L Assess/Plan/Problems-Billing Ms Lamar is a 80 yo F who has a h/o dementia and hypothyroidism who presented to the ER with c/o vomiting and was found to have gastric outlet obstruction related to a large hiatal hernia. - Patient Problems (1) Gastric outlet obstruction Current Visit: Yes Status: Acute Code(s): K31.1 - ADULT HYPERTROPHIC PYLORIC STENOSIS SNOMED Code(s): 457464545 Comment: The patient underwent an upper GI series earlier today that showed resolution of the obstruction. She will be started on a clear liquid diet. The patient likely needs repair of the hiatal hernia so this does not happen again. Dr. Bustillo and myself will speak with the patient's daughter about proceeding with surgery. The patient's medical history is not complex. She is unable to describe her exercise capacity due to her dementia but her daughter states that she walks around at home, dresses herself and gets along without any chest pain or SOB complaints. Her echo shows a normal EF with possible diastolic dysfunction and moderate pulmonary HTN. I believe the patient is medically optimized for surgery and should proceed without any further cardiac testing. I would place her moderate risk for surgery mainly because of the patient being unable to explain her exercise capacity. (2) HTN (hypertension) Current Visit: Yes Status: Acute Code(s): I10 - ESSENTIAL (PRIMARY) HYPERTENSION SNOMED Code(s): 37338667 Comment: BP is moderately elevated will start amlodipine 2.5mg daily. (3) Hypothyroid Current Visit: Yes Status: Acute Code(s): E03.9 - HYPOTHYROIDISM, UNSPECIFIED SNOMED Code(s): 65503575 Comment: Continue Synthroid. (4) Dementia Current Visit: Yes Status: Acute Code(s): F03.90 - UNSPECIFIED DEMENTIA WITHOUT BEHAVIORAL DISTURBANCE SNOMED Code(s): 68468474 Comment: Hold oral meds as she is NPO. (5) DVT prophylaxis Current Visit: Yes Status: Acute Code(s): KVL5891 - SNOMED Code(s): 042634255 Comment: SQ heparin (6) Full code status Current Visit: Yes Status: Acute Code(s): Z78.9 - OTHER SPECIFIED HEALTH STATUS SNOMED Code(s): 746773498
[2016-10-18] MEDS ORDERED: Mirtazapine TAB* 15 MG PO PRN (15:27)
[2016-10-18] MEDS: amLODIPine TAB* 5 MG PO SCH (15:50)
[2016-10-18] MEDS: Memantine TAB* 5 MG PO SCH (20:33)
[2016-10-18] MEDS: Pantoprazole IV* 40 MG IV SCH (20:35)
[2016-10-19] MEDS: NS 0.9% w/ 20 Meq KCL 1000 ML* 1,000 ML IV SCH (03:59)
[2016-10-19] MEDS: Levothyroxine INJ* 100 MCG/5 ML VIAL IV SCH (05:29)
[2016-10-19] MEDS: Heparin VIAL(*) 5000 UNITS/ML VIAL (FIVE THOUSAND) SUBCUT SCH ×3 (05:33→22:44)
[2016-10-19] MEDS: Memantine TAB* 5 MG PO SCH ×2 (08:31→22:39)
[2016-10-19] MEDS: amLODIPine TAB* 5 MG PO SCH (08:31)
[2016-10-19] MEDS: Pantoprazole IV* 40 MG IV SCH ×2 (08:33→22:43)
--- NOTE | 2016-10-19 11:11 | PN ---
Subjective Date of Service: 10/19/16 Interval History: Pt is feeling well. She is confused about the situation stating one person says on thing and another says something different. She denies any pain. She denies any SOB. Objective Active Medications: Amlodipine Besylate (Norvasc Tab*) 2.5 mg PO DAILY [facility] Last Admin: 10/19/16 08:31 Dose: 2.5 mg Haloperidol Lactate (Haldol Inj Iv/Im*) 0.5 mg IV SLOW PU Q6H PRN PRN Reason: AGITATION Heparin Sodium (Porcine) (Heparin Vial(*)) 5,000 units SUBCUT Q8HR [facility] Last Admin: 10/19/16 05:33 Dose: 5,000 units Iron Sucrose 200 mg/ Sodium (Chloride) 110 mls @ 110 mls/hr IVPB DAILY [facility] Stop: 10/20/16 16:00 Last Admin: 10/19/16 10:00 Dose: 110 mls/hr Sodium Chloride (Ns 0.9% 1000 Ml*) 1,000 mls @ 75 mls/hr IV PER RATE [facility] Levothyroxine Sodium (Synthroid Inj*) 62.5 mcg IV 0600 [facility] Last Admin: 10/19/16 05:29 Dose: 62.5 mcg Memantine (Namenda Tab*) 5 mg PO BID [facility] Last Admin: 10/19/16 08:31 Dose: 5 mg Mirtazapine (Remeron Tab*) 15 mg PO BEDTIME PRN PRN Reason: SLEEP Morphine Sulfate (Morphine Inj (Syringe)*) 2 mg IV Q4H PRN PRN Reason: PAIN - MILD Ondansetron HCl (Zofran Inj*) 4 mg IV Q4H PRN PRN Reason: NAUSEA Pantoprazole Sodium (Protonix Iv*) 40 mg IV Q12H [facility] Last Admin: 10/19/16 08:33 Dose: 40 mg Risperidone (Risperdal) 0.25 mg PO BEDTIME [facility] Last Admin: 10/18/16 20:34 Dose: 0.25 mg Vital Signs 10/18/16 10/18/16 10/18/16 11:27 15:21 19:22 Temperature 98.0 F 98.1 F 98.6 F Pulse Rate 86 83 85 Respiratory 15 18 18 Rate Blood Pressure 157/87 156/85 160/95 (mmHg) O2 Sat by Pulse 98 100 95 Oximetry 08/01/17 08/02/17 08/02/17 20:33 03:46 07:36 Temperature 99.0 F 98.1 F Pulse Rate 82 80 Respiratory 16 16 14 Rate Blood Pressure 128/68 157/81 (mmHg) O2 Sat by Pulse 95 97 Oximetry 10/19/16 08:43 Temperature Pulse Rate Respiratory 16 Rate Blood Pressure (mmHg) O2 Sat by Pulse Oximetry Oxygen Devices in Use Now: None Appearance: Elderly female sitting up in a chair, NAD Eyes: No Scleral Icterus Ears/Nose/Mouth/Throat: Mucous Membranes Moist Respiratory: Symmetrical Chest Expansion and Respiratory Effort, Clear to Auscultation - diminished breath sounds at the bases Cardiovascular: NL Sounds; No Murmurs; No JVD, RRR, No Edema Abdominal: NL Sounds; No Tenderness; No Distention Extremities: No Clubbing, Cyanosis Skin: No Rash or Ulcers, No Nodules or Sclerosis Neurological: - - pleasantly confused Result Diagrams: 10/18/16 11:12 10/18/16 11:12 Additional Lab and Data: Lab Results 10/16/16 10/16/16 10/16/16 Range/Units 18:15 18:15 18:15 WBC 13.6 H (3.5-10.8) 10^3/ul RBC 4.88 (4.0-5.4) 10^6/ul Hgb 13.8 (12.0-16.0) g/dl Hct 42 (35-47) % MCV 86 (80-97) fL MCH 28 (27-31) pg MCHC 33 (31-36) g/dl RDW 15 (10.5-15) % Plt Count 321 (150-450) 10^3/ul MPV 8 (7.4-10.4) um3 Neut % (Auto) 90.6 H (38-83) % Lymph % (Auto) 5.3 L (25-47) % [place] % (Auto) 3.9 (1-9) % Eos % (Auto) 0 (0-6) % Baso % (Auto) 0.2 (0-2) % Absolute Neuts (auto) 12.3 H (1.5-7.7) 10^3/ul Absolute Lymphs (auto) 0.7 L (1.0-4.8) 10^3/ul Absolute Monos (auto) 0.5 (0-0.8) 10^3/ul Absolute Eos (auto) 0 (0-0.6) 10^3/ul Absolute Basos (auto) 0 (0-0.2) 10^3/ul Absolute Nucleated RBC 0.01 10^3/ul Nucleated RBC % 0.1 Sodium 135 (133-145) mmol/L Potassium 3.2 L (3.5-5.0) mmol/L Chloride 94 L (101-111) mmol/L Carbon Dioxide 27 (22-32) mmol/L Anion Gap 14 H (2-11) mmol/L BUN 17 (6-24) mg/dL Creatinine 0.88 (0.51-0.95) mg/dL Est GFR ( Amer) 79.7 (>60) Est GFR (Non-Af Amer) 62.0 (>60) BUN/Creatinine Ratio 19.3 (8-20) Glucose 164 H (70-100) mg/dL Lactic Acid 2.2 H* (0.5-2.0) mmol/L Calcium 9.9 (8.6-10.3) mg/dL Total Bilirubin 0.60 (0.2-1.0) mg/dL AST 18 (13-39) U/L ALT 14 (7-52) U/L Alkaline Phosphatase 82 (34-104) U/L C-Reactive Protein 19.14 H (< 5.00) mg/L B-Natriuretic Peptide ( - 100) pg/mL Total Protein 7.9 (6.4-8.9) g/dL Albumin 4.2 (3.2-5.2) g/dL Globulin 3.7 (2-4) g/dL Albumin/Globulin Ratio 1.1 (1-3) Amylase 17 L (29-103) U/L Lipase 10 L (11.0-82.0) U/L 10/16/16 Range/Units 18:15 WBC (3.5-10.8) 10^3/ul RBC (4.0-5.4) 10^6/ul Hgb (12.0-16.0) g/dl Hct (35-47) % MCV (80-97) fL MCH (27-31) pg MCHC (31-36) g/dl RDW (10.5-15) % Plt Count (150-450) 10^3/ul MPV (7.4-10.4) um3 Neut % (Auto) (38-83) % Lymph % (Auto) (25-47) % [place] % (Auto) (1-9) % Eos % (Auto) (0-6) % Baso % (Auto) (0-2) % Absolute Neuts (auto) (1.5-7.7) 10^3/ul Absolute Lymphs (auto) (1.0-4.8) 10^3/ul Absolute Monos (auto) (0-0.8) 10^3/ul Absolute Eos (auto) (0-0.6) 10^3/ul Absolute Basos (auto) (0-0.2) 10^3/ul Absolute Nucleated RBC 10^3/ul Nucleated RBC % Sodium (133-145) mmol/L Potassium (3.5-5.0) mmol/L Chloride (101-111) mmol/L Carbon Dioxide (22-32) mmol/L Anion Gap (2-11) mmol/L BUN (6-24) mg/dL Creatinine (0.51-0.95) mg/dL Est GFR ( Amer) (>60) Est GFR (Non-Af Amer) (>60) BUN/Creatinine Ratio (8-20) Glucose (70-100) mg/dL Lactic Acid (0.5-2.0) mmol/L Calcium (8.6-10.3) mg/dL Total Bilirubin (0.2-1.0) mg/dL AST (13-39) U/L ALT (7-52) U/L Alkaline Phosphatase (34-104) U/L C-Reactive Protein (< 5.00) mg/L B-Natriuretic Peptide 191 H ( - 100) pg/mL Total Protein (6.4-8.9) g/dL Albumin (3.2-5.2) g/dL Globulin (2-4) g/dL Albumin/Globulin Ratio (1-3) Amylase (29-103) U/L Lipase (11.0-82.0) U/L Assess/Plan/Problems-Billing Ms Lamar is a 80 yo F who has a h/o dementia and hypothyroidism who presented to the ER with c/o vomiting and was found to have gastric outlet obstruction related to a large hiatal hernia. - Patient Problems (1) Gastric outlet obstruction Current Visit: Yes Status: Acute Code(s): K31.1 - ADULT HYPERTROPHIC PYLORIC STENOSIS SNOMED Code(s): 858491397 Comment: Tentative plan is for surgery tomorrow with Dr. Bustillo. The patient will continue on clears for now then NPO p MN. (2) HTN (hypertension) Current Visit: Yes Status: Acute Code(s): I10 - ESSENTIAL (PRIMARY) HYPERTENSION SNOMED Code(s): 64465848 Comment: BP is still somewhat elevated. Will continue current amlodipine dose for now and likely increase to 5mg daily. (3) Hypothyroid Current Visit: Yes Status: Acute Code(s): E03.9 - HYPOTHYROIDISM, UNSPECIFIED SNOMED Code(s): 39750535 Comment: Continue Synthroid. (4) Dementia Current Visit: Yes Status: Acute Code(s): F03.90 - UNSPECIFIED DEMENTIA WITHOUT BEHAVIORAL DISTURBANCE SNOMED Code(s): 50524558 Comment: Hold oral meds as she is NPO. (5) DVT prophylaxis Current Visit: Yes Status: Acute Code(s): ZJM5694 - SNOMED Code(s): 649632846 Comment: SQ heparin (6) Full code status Current Visit: Yes Status: Acute Code(s): Z78.9 - OTHER SPECIFIED HEALTH STATUS SNOMED Code(s): 753743344
--- NOTE | 2016-10-19 14:09 | PN ---
Progress Note - Progress Note Date of Service: 10/19/16 Note: Feels well, no pain or nausea. Discussed in great detail w pt and daughter Impr: Giant paraesophageal hiatal hernia with esophagitis and and obstruction. Jah proceed with laparoscopic repair in AM. They agree.
[2016-10-19] MEDS: NS 0.9% 1000 ML* 1,000 ML IV SCH (14:48)
[2016-10-20] MEDS: NS 0.9% 1000 ML* 1,000 ML IV SCH ×2 (03:56→22:16)
[2016-10-20] MEDS ORDERED: ceFAZolin 2 GM PREMIX (*) 2 GM/50 ML BAG IVPB ONE (06:00)
[2016-10-20] MEDS: Heparin VIAL(*) 5000 UNITS/ML VIAL (FIVE THOUSAND) SUBCUT SCH ×3 (06:06→22:17)
[2016-10-20] MEDS: Levothyroxine INJ* 100 MCG/5 ML VIAL IV SCH (06:30)
[2016-10-20] MEDS ORDERED: KETAMINE HCL* 50 MG/ML 10 ML VIAL ONE (07:11)
[2016-10-20] MEDS ORDERED: EPHEDrine (Pressors)* 50 MG/ML VIAL ONE (07:11)
[2016-10-20] MEDS ORDERED: Ketorolac INJ* 30 MG/ML 1 ML VIAL ONE (07:11)
[2016-10-20] MEDS ORDERED: fentaNYL* 50 MCG/ML 2 ML VIAL (100 MCG VIAL) ONE ×2 (07:11→11:19)
[2016-10-20] MEDS ORDERED: Phenylephrine INJ* 10 MG/ML 1 ML VIAL (10 MG) ONE (07:11)
[2016-10-20] MEDS ORDERED: Cisatracurium* 2 MG/ML MDV 5 ML ONE (07:11)
[2016-10-20] MEDS ORDERED: Midazolam* 1 MG/ML 5 ML VIAL (5 MG) ONE (07:11)
[2016-10-20] MEDS ORDERED: Ondansetron INJ* 2 MG/ML VIAL ONE (07:11)
[2016-10-20] MEDS ORDERED: Lidocaine 2% PF * 5 ML VIAL ONE (07:11)
[2016-10-20] MEDS ORDERED: Succinylcholine* 20 MG/ML 10 ML VIAL ONE (07:11)
[2016-10-20] MEDS ORDERED: Dexamethasone IV* 4 MG/ML 1 ML (4 MG) ONE (07:11)
[2016-10-20] MEDS ORDERED: Propofol* 10 MG/ML 20 ML BTL IV PUSH ONE (07:11)
[2016-10-20] MEDS ORDERED: Bupivacaine 0.25% EPI 200,000* 30 ML SDV ONE (07:24)
[2016-10-20] MEDS ORDERED: fentaNYL* 50 MCG/ML 2 ML VIAL (100 MCG VIAL) IV PRN (09:03)
[2016-10-20] MEDS ORDERED: Ondansetron INJ* 2 MG/ML VIAL IV PRN (09:03)
[2016-10-20] MEDS ORDERED: Glycopyrrolate IV* 0.2 MG/ML 1 ML VIAL ONE (10:11)
[2016-10-20] MEDS ORDERED: Neostigmine Methylsulfate* 2 MG/2 ML SYRINGE ONE (10:11)
[2016-10-20] MEDS: amLODIPine TAB* 5 MG PO SCH (11:58)
[2016-10-20] MEDS: Pantoprazole IV* 40 MG IV SCH ×2 (11:59→22:18)
[2016-10-20] MEDS: Memantine TAB* 5 MG PO SCH ×2 (11:59→22:17)
--- NOTE | 2016-10-20 13:33 | PN ---
Subjective Date of Service: 10/20/16 Interval History: Pt is feeling ok. She states her pain is getting better. She notes that the ice cream feels good. Her daughter noted a rash on her LE prior to surgery but this has now resolved. Objective Active Medications: Amlodipine Besylate (Norvasc Tab*) 2.5 mg PO DAILY [facility] Last Admin: 10/20/16 11:58 Dose: Not Given Haloperidol Lactate (Haldol Inj Iv/Im*) 0.5 mg IV SLOW PU Q6H PRN PRN Reason: AGITATION Heparin Sodium (Porcine) (Heparin Vial(*)) 5,000 units SUBCUT Q8HR [facility] Last Admin: 10/20/16 06:06 Dose: Not Given Iron Sucrose 200 mg/ Sodium (Chloride) 110 mls @ 110 mls/hr IVPB DAILY [facility] Stop: 10/20/16 16:00 Last Admin: 10/20/16 11:58 Dose: Not Given Sodium Chloride (Ns 0.9% 1000 Ml*) 1,000 mls @ 75 mls/hr IV PER RATE [facility] Last Admin: 10/20/16 03:56 Dose: 75 mls/hr Levothyroxine Sodium (Synthroid Inj*) 62.5 mcg IV 0600 [facility] Last Admin: 10/20/16 06:30 Dose: 62.5 mcg Memantine (Namenda Tab*) 5 mg PO BID [facility] Last Admin: 10/20/16 11:59 Dose: Not Given Mirtazapine (Remeron Tab*) 15 mg PO BEDTIME PRN PRN Reason: SLEEP Morphine Sulfate (Morphine Inj (Syringe)*) 2 mg IV Q4H PRN PRN Reason: PAIN - MILD Ondansetron HCl (Zofran Inj*) 4 mg IV Q4H PRN PRN Reason: NAUSEA Pantoprazole Sodium (Protonix Iv*) 40 mg IV Q12H [facility] Last Admin: 10/20/16 11:59 Dose: Not Given Risperidone (Risperdal) 0.25 mg PO BEDTIME [facility] Last Admin: 10/19/16 22:38 Dose: 0.25 mg Vital Signs 10/19/16 10/19/16 10/19/16 15:17 19:17 20:00 Temperature 98.3 F 98.5 F Pulse Rate 78 81 Respiratory 16 20 16 Rate Blood Pressure 146/79 152/79 (mmHg) O2 Sat by Pulse 100 99 Oximetry 10/19/16 10/20/16 10/20/16 23:28 03:20 10:28 Temperature 97.7 F 98.4 F 97.2 F Pulse Rate 73 90 100 Respiratory 16 16 20 Rate Blood Pressure 155/71 141/74 117/69 (mmHg) O2 Sat by Pulse 97 98 100 Oximetry 10/20/16 10/20/16 10/20/16 10:30 10:35 10:40 Temperature Pulse Rate 95 93 86 Respiratory 20 17 16 Rate Blood Pressure 121/61 105/73 125/74 (mmHg) O2 Sat by Pulse 98 97 96 Oximetry 10/20/16 10/20/16 10/20/16 10:45 11:00 11:15 Temperature 96.8 F Pulse Rate 81 87 82 Respiratory 18 16 16 Rate Blood Pressure 130/74 141/83 141/84 (mmHg) O2 Sat by Pulse 97 95 95 Oximetry 10/20/16 10/20/16 10/20/16 11:21 11:30 11:45 Temperature Pulse Rate 68 82 Respiratory 17 21 16 Rate Blood Pressure 124/82 142/82 (mmHg) O2 Sat by Pulse 97 96 Oximetry 10/20/16 12:21 Temperature Pulse Rate Respiratory 16 Rate Blood Pressure (mmHg) O2 Sat by Pulse Oximetry Oxygen Devices in Use Now: None Appearance: Elderly female sitting up in bed, NAD Eyes: No Scleral Icterus Ears/Nose/Mouth/Throat: Mucous Membranes Moist Respiratory: Symmetrical Chest Expansion and Respiratory Effort, Clear to Auscultation - poor effort Cardiovascular: NL Sounds; No Murmurs; No JVD, RRR, No Edema Abdominal: - - no bowel sounds hear, soft, ND, mild tenderness to palpation Extremities: No Clubbing, Cyanosis Skin: No Rash or Ulcers, No Nodules or Sclerosis, - - lap sites with dressings in place Neurological: - - pleasantly confused Result Diagrams: 10/18/16 11:12 10/18/16 11:12 Additional Lab and Data: Lab Results 10/16/16 10/16/16 10/16/16 Range/Units 18:15 18:15 18:15 WBC 13.6 H (3.5-10.8) 10^3/ul RBC 4.88 (4.0-5.4) 10^6/ul Hgb 13.8 (12.0-16.0) g/dl Hct 42 (35-47) % MCV 86 (80-97) fL MCH 28 (27-31) pg MCHC 33 (31-36) g/dl RDW 15 (10.5-15) % Plt Count 321 (150-450) 10^3/ul MPV 8 (7.4-10.4) um3 Neut % (Auto) 90.6 H (38-83) % Lymph % (Auto) 5.3 L (25-47) % [place] % (Auto) 3.9 (1-9) % Eos % (Auto) 0 (0-6) % Baso % (Auto) 0.2 (0-2) % Absolute Neuts (auto) 12.3 H (1.5-7.7) 10^3/ul Absolute Lymphs (auto) 0.7 L (1.0-4.8) 10^3/ul Absolute Monos (auto) 0.5 (0-0.8) 10^3/ul Absolute Eos (auto) 0 (0-0.6) 10^3/ul Absolute Basos (auto) 0 (0-0.2) 10^3/ul Absolute Nucleated RBC 0.01 10^3/ul Nucleated RBC % 0.1 Sodium 135 (133-145) mmol/L Potassium 3.2 L (3.5-5.0) mmol/L Chloride 94 L (101-111) mmol/L Carbon Dioxide 27 (22-32) mmol/L Anion Gap 14 H (2-11) mmol/L BUN 17 (6-24) mg/dL Creatinine 0.88 (0.51-0.95) mg/dL Est GFR ( Amer) 79.7 (>60) Est GFR (Non-Af Amer) 62.0 (>60) BUN/Creatinine Ratio 19.3 (8-20) Glucose 164 H (70-100) mg/dL Lactic Acid 2.2 H* (0.5-2.0) mmol/L Calcium 9.9 (8.6-10.3) mg/dL Total Bilirubin 0.60 (0.2-1.0) mg/dL AST 18 (13-39) U/L ALT 14 (7-52) U/L Alkaline Phosphatase 82 (34-104) U/L C-Reactive Protein 19.14 H (< 5.00) mg/L B-Natriuretic Peptide ( - 100) pg/mL Total Protein 7.9 (6.4-8.9) g/dL Albumin 4.2 (3.2-5.2) g/dL Globulin 3.7 (2-4) g/dL Albumin/Globulin Ratio 1.1 (1-3) Amylase 17 L (29-103) U/L Lipase 10 L (11.0-82.0) U/L 10/16/16 Range/Units 18:15 WBC (3.5-10.8) 10^3/ul RBC (4.0-5.4) 10^6/ul Hgb (12.0-16.0) g/dl Hct (35-47) % MCV (80-97) fL MCH (27-31) pg MCHC (31-36) g/dl RDW (10.5-15) % Plt Count (150-450) 10^3/ul MPV (7.4-10.4) um3 Neut % (Auto) (38-83) % Lymph % (Auto) (25-47) % [place] % (Auto) (1-9) % Eos % (Auto) (0-6) % Baso % (Auto) (0-2) % Absolute Neuts (auto) (1.5-7.7) 10^3/ul Absolute Lymphs (auto) (1.0-4.8) 10^3/ul Absolute Monos (auto) (0-0.8) 10^3/ul Absolute Eos (auto) (0-0.6) 10^3/ul Absolute Basos (auto) (0-0.2) 10^3/ul Absolute Nucleated RBC 10^3/ul Nucleated RBC % Sodium (133-145) mmol/L Potassium (3.5-5.0) mmol/L Chloride (101-111) mmol/L Carbon Dioxide (22-32) mmol/L Anion Gap (2-11) mmol/L BUN (6-24) mg/dL Creatinine (0.51-0.95) mg/dL Est GFR ( Amer) (>60) Est GFR (Non-Af Amer) (>60) BUN/Creatinine Ratio (8-20) Glucose (70-100) mg/dL Lactic Acid (0.5-2.0) mmol/L Calcium (8.6-10.3) mg/dL Total Bilirubin (0.2-1.0) mg/dL AST (13-39) U/L ALT (7-52) U/L Alkaline Phosphatase (34-104) U/L C-Reactive Protein (< 5.00) mg/L B-Natriuretic Peptide 191 H ( - 100) pg/mL Total Protein (6.4-8.9) g/dL Albumin (3.2-5.2) g/dL Globulin (2-4) g/dL Albumin/Globulin Ratio (1-3) Amylase (29-103) U/L Lipase (11.0-82.0) U/L Assess/Plan/Problems-Billing Ms Lamar is a 80 yo F who has a h/o dementia and hypothyroidism who presented to the ER with c/o vomiting and was found to have gastric outlet obstruction related to a large hiatal hernia. - Patient Problems (1) Gastric outlet obstruction Current Visit: Yes Status: Acute Code(s): K31.1 - ADULT HYPERTROPHIC PYLORIC STENOSIS SNOMED Code(s): 242523823 Comment: Pt is now s/p repair of her large hiatal hernia. Continue full liquids x1 week. Continue pain control. (2) HTN (hypertension) Current Visit: Yes Status: Acute Code(s): I10 - ESSENTIAL (PRIMARY) HYPERTENSION SNOMED Code(s): 65078538 Comment: Increase amlodipine to 5mg daily. Monitor BP. (3) Hypothyroid Current Visit: Yes Status: Acute Code(s): E03.9 - HYPOTHYROIDISM, UNSPECIFIED SNOMED Code(s): 41623734 Comment: Continue Synthroid. (4) Dementia Current Visit: Yes Status: Acute Code(s): F03.90 - UNSPECIFIED DEMENTIA WITHOUT BEHAVIORAL DISTURBANCE SNOMED Code(s): 48904970 Comment: Continue home medication regimen. (5) DVT prophylaxis Current Visit: Yes Status: Acute Code(s): JJJ6860 - SNOMED Code(s): 638452640 Comment: SQ heparin (6) Full code status Current Visit: Yes Status: Acute Code(s): Z78.9 - OTHER SPECIFIED HEALTH STATUS SNOMED Code(s): 574288726
--- NOTE | 2016-10-21 03:42 | OP ---
CC: [facility]; [facility] * DATE OF OPERATION: 10/20/16 - ROOM #337 DATE OF : 37 SURGEON: Alec Bustillo MD SUPERVISOR FINISHING ROOM: Dr. Meneses. ANESTHESIOLOGIST: Dr. Nielsen. ANESTHESIA: General anesthetic, local infiltration. PRE-OP DIAGNOSIS: Giant paraesophageal hiatal hernia. POST-OP DIAGNOSIS: Giant paraesophageal hiatal hernia. OPERATIVE PROCEDURE: Laparoscopic repair of giant paraesophageal hiatal hernia with crural repair. DESCRIPTION OF PROCEDURE: The patient was supine in the operating room table after adequate general anesthetic, compression stockings, Yasmin Hugger warmer, and intravenous antibiotics, she was placed in the split-leg table, foot boards were in place. Kerlix was used around the thighs to help secure it to the table. There was also a strap across the chest and padding under the axilla. After adequate prep and drape, local anesthetic was administered. A small umbilical incision was created. Blunt port cannula was placed. Insufflation was carried out with carbon dioxide. Additional cannulae 5-mm subxiphoid, right subcostal, and left anterior axillary line and a 12-mm left subcostal placed through small stab wounds under direct vision. The liver was tented upward and retracted and the stomach was way up in the chest and it was gradually retracted downward. The sac was divided at the crural edge and brought down into the abdominal cavity. The esophagus was identified and kept out of harm's way. The pleura was not entered on either side. The crura were freed up circumferentially, and a Daren drain was used for retraction. The esophagus was mobilized for about 8 to 10 cm up into the chest and came down nicely. A wrap was created in the usual fashion and 2 sutures of 0 Ti-Cron were used to create the wrap. This was done around a 54 bougie and was not too tight. The wrap was attached to the esophageal musculature to prevent slippage. The crura were closed retroesophageally using 0 Ti-Cron as well pledgets were utilized. This was also not too tight around a 54 bougie. The wrap sutured to the crura anteriorly to try to decrease the risk of slippage as well and the hemostasis was confirmed. Everything was in good position. Bougie was removed. Cannulae removed, pneumoperitoneum allowed to escape. Umbilical fascia was closed with 0 -Polysorb, skin with 4-0 Polysorb, followed by Steri-Strips. She tolerated the procedure well, was awakened and brought to the recovery in good condition. There were no complications. No drains. No pathologic specimens. Sponge and instrument counts correct. Estimated blood loss 50 mL. [id number]/[facility] #: [id number] [facility]
[2016-10-21] MEDS: Levothyroxine INJ* 100 MCG/5 ML VIAL IV SCH (05:56)
[2016-10-21] MEDS: Heparin VIAL(*) 5000 UNITS/ML VIAL (FIVE THOUSAND) SUBCUT SCH ×2 (05:57→06:01)
[2016-10-21 08:11] VITALS: BP 136/77
[2016-10-21] MEDS: Memantine TAB* 5 MG PO SCH (10:13)
[2016-10-21] MEDS: amLODIPine TAB* 5 MG PO SCH (10:14)
--- NOTE | 2016-10-21 12:57 | PN ---
Subjective Date of Service: 10/21/16 Interval History: Pt is feeling well. She denies any pain or SOB. She is anxious to go home. Objective Active Medications: Amlodipine Besylate (Norvasc Tab*) 2.5 mg PO DAILY [facility] Last Admin: 10/21/16 10:14 Dose: 2.5 mg Haloperidol Lactate (Haldol Inj Iv/Im*) 0.5 mg IV SLOW PU Q6H PRN PRN Reason: AGITATION Heparin Sodium (Porcine) (Heparin Vial(*)) 5,000 units SUBCUT Q8HR [facility] Last Admin: 10/21/16 06:01 Dose: Not Given Levothyroxine Sodium (Synthroid Inj*) 62.5 mcg IV 0600 [facility] Last Admin: 10/21/16 05:56 Dose: 62.5 mcg Memantine (Namenda Tab*) 5 mg PO BID [facility] Last Admin: 10/21/16 10:13 Dose: 5 mg Mirtazapine (Remeron Tab*) 15 mg PO BEDTIME PRN PRN Reason: SLEEP Morphine Sulfate (Morphine Inj (Syringe)*) 2 mg IV Q4H PRN PRN Reason: PAIN - MILD Ondansetron HCl (Zofran Inj*) 4 mg IV Q4H PRN PRN Reason: NAUSEA Pantoprazole Sodium (Protonix Iv*) 40 mg IV Q12H [facility] Last Admin: 10/20/16 22:18 Dose: 40 mg Risperidone (Risperdal) 0.25 mg PO BEDTIME [facility] Last Admin: 10/20/16 22:17 Dose: 0.25 mg Vital Signs 10/20/16 10/20/16 10/20/16 13:07 13:49 15:59 Temperature 97.4 F 97.3 F 98.0 F Pulse Rate 84 89 92 Respiratory 14 14 21 Rate Blood Pressure 146/84 141/85 144/88 (mmHg) O2 Sat by Pulse 97 98 95 Oximetry 10/20/16 10/20/16 10/20/16 18:03 19:20 22:35 Temperature 97.4 F Pulse Rate 94 110 Respiratory 16 17 16 Rate Blood Pressure 157/93 117/69 (mmHg) O2 Sat by Pulse 97 96 Oximetry 10/20/16 10/21/16 10/21/16 23:31 02:19 03:38 Temperature 98.2 F 97.8 F Pulse Rate 88 79 Respiratory 16 16 Rate Blood Pressure 145/77 117/56 (mmHg) O2 Sat by Pulse 96 96 95 Oximetry 10/21/16 10/21/16 07:21 09:30 Temperature 97.4 F Pulse Rate 88 Respiratory 16 16 Rate Blood Pressure 136/77 (mmHg) O2 Sat by Pulse 97 97 Oximetry Oxygen Devices in Use Now: None Appearance: Elderly female sitting up in a chair, NAD Eyes: No Scleral Icterus Ears/Nose/Mouth/Throat: Mucous Membranes Moist Respiratory: Symmetrical Chest Expansion and Respiratory Effort, Clear to Auscultation Cardiovascular: NL Sounds; No Murmurs; No JVD, RRR, No Edema Abdominal: - - hypoactive bowel sounds Extremities: No Clubbing, Cyanosis Skin: No Rash or Ulcers, No Nodules or Sclerosis Neurological: - - pleasantly confused Result Diagrams: 10/18/16 11:12 10/18/16 11:12 Additional Lab and Data: Lab Results 10/16/16 10/16/16 10/16/16 Range/Units 18:15 18:15 18:15 WBC 13.6 H (3.5-10.8) 10^3/ul RBC 4.88 (4.0-5.4) 10^6/ul Hgb 13.8 (12.0-16.0) g/dl Hct 42 (35-47) % MCV 86 (80-97) fL MCH 28 (27-31) pg MCHC 33 (31-36) g/dl RDW 15 (10.5-15) % Plt Count 321 (150-450) 10^3/ul MPV 8 (7.4-10.4) um3 Neut % (Auto) 90.6 H (38-83) % Lymph % (Auto) 5.3 L (25-47) % [place] % (Auto) 3.9 (1-9) % Eos % (Auto) 0 (0-6) % Baso % (Auto) 0.2 (0-2) % Absolute Neuts (auto) 12.3 H (1.5-7.7) 10^3/ul Absolute Lymphs (auto) 0.7 L (1.0-4.8) 10^3/ul Absolute Monos (auto) 0.5 (0-0.8) 10^3/ul Absolute Eos (auto) 0 (0-0.6) 10^3/ul Absolute Basos (auto) 0 (0-0.2) 10^3/ul Absolute Nucleated RBC 0.01 10^3/ul Nucleated RBC % 0.1 Sodium 135 (133-145) mmol/L Potassium 3.2 L (3.5-5.0) mmol/L Chloride 94 L (101-111) mmol/L Carbon Dioxide 27 (22-32) mmol/L Anion Gap 14 H (2-11) mmol/L BUN 17 (6-24) mg/dL Creatinine 0.88 (0.51-0.95) mg/dL Est GFR ( Amer) 79.7 (>60) Est GFR (Non-Af Amer) 62.0 (>60) BUN/Creatinine Ratio 19.3 (8-20) Glucose 164 H (70-100) mg/dL Lactic Acid 2.2 H* (0.5-2.0) mmol/L Calcium 9.9 (8.6-10.3) mg/dL Total Bilirubin 0.60 (0.2-1.0) mg/dL AST 18 (13-39) U/L ALT 14 (7-52) U/L Alkaline Phosphatase 82 (34-104) U/L C-Reactive Protein 19.14 H (< 5.00) mg/L B-Natriuretic Peptide ( - 100) pg/mL Total Protein 7.9 (6.4-8.9) g/dL Albumin 4.2 (3.2-5.2) g/dL Globulin 3.7 (2-4) g/dL Albumin/Globulin Ratio 1.1 (1-3) Amylase 17 L (29-103) U/L Lipase 10 L (11.0-82.0) U/L // Range/Units 18:15 WBC (3.5-10.8) 10^3/ul RBC (4.0-5.4) 10^6/ul Hgb (12.0-16.0) g/dl Hct (35-47) % MCV (80-97) fL MCH (27-31) pg MCHC (31-36) g/dl RDW (10.5-15) % Plt Count (150-450) 10^3/ul MPV (7.4-10.4) um3 Neut % (Auto) (38-83) % Lymph % (Auto) (25-47) % [place] % (Auto) (1-9) % Eos % (Auto) (0-6) % Baso % (Auto) (0-2) % Absolute Neuts (auto) (1.5-7.7) 10^3/ul Absolute Lymphs (auto) (1.0-4.8) 10^3/ul Absolute Monos (auto) (0-0.8) 10^3/ul Absolute Eos (auto) (0-0.6) 10^3/ul Absolute Basos (auto) (0-0.2) 10^3/ul Absolute Nucleated RBC 10^3/ul Nucleated RBC % Sodium (133-145) mmol/L Potassium (3.5-5.0) mmol/L Chloride (101-111) mmol/L Carbon Dioxide (22-32) mmol/L Anion Gap (2-11) mmol/L BUN (6-24) mg/dL Creatinine (0.51-0.95) mg/dL Est GFR ( Amer) (>60) Est GFR (Non-Af Amer) (>60) BUN/Creatinine Ratio (8-20) Glucose (70-100) mg/dL Lactic Acid (0.5-2.0) mmol/L Calcium (8.6-10.3) mg/dL Total Bilirubin (0.2-1.0) mg/dL AST (13-39) U/L ALT (7-52) U/L Alkaline Phosphatase (34-104) U/L C-Reactive Protein (< 5.00) mg/L B-Natriuretic Peptide 191 H ( - 100) pg/mL Total Protein (6.4-8.9) g/dL Albumin (3.2-5.2) g/dL Globulin (2-4) g/dL Albumin/Globulin Ratio (1-3) Amylase (29-103) U/L Lipase (11.0-82.0) U/L Assess/Plan/Problems-Billing Ms Lamar is a 80 yo F who has a h/o dementia and hypothyroidism who presented to the ER with c/o vomiting and was found to have gastric outlet obstruction related to a large hiatal hernia. - Patient Problems (1) Gastric outlet obstruction Current Visit: Yes Status: Acute Code(s): K31.1 - ADULT HYPERTROPHIC PYLORIC STENOSIS SNOMED Code(s): 247320036 Comment: Pt is now s/p repair of her large hiatal hernia. Continue full liquids x1 week. Continue pain control. Pt is doing very well post-op. Follow up with Dr. Bustillo in about 7-10 days. (2) HTN (hypertension) Current Visit: Yes Status: Acute Code(s): I10 - ESSENTIAL (PRIMARY) HYPERTENSION SNOMED Code(s): 44012159 Comment: Continue amlodipine 2.5mg daily. Monitor BP. (3) Hypothyroid Current Visit: Yes Status: Acute Code(s): E03.9 - HYPOTHYROIDISM, UNSPECIFIED SNOMED Code(s): 02030925 Comment: Continue Synthroid. (4) Dementia Current Visit: Yes Status: Acute Code(s): F03.90 - UNSPECIFIED DEMENTIA WITHOUT BEHAVIORAL DISTURBANCE SNOMED Code(s): 69683265 Comment: Continue home medication regimen. (5) DVT prophylaxis Current Visit: Yes Status: Acute Code(s): PGJ1984 - SNOMED Code(s): 747128180 Comment: SQ heparin (6) Full code status Current Visit: Yes Status: Acute Code(s): Z78.9 - OTHER SPECIFIED HEALTH STATUS SNOMED Code(s): 023883694 Status and Disposition: d/c home
--- NOTE | 2016-10-22 04:09 | DS ---
CC: Miky Shanks NP; Dr. Bustillo * DISCHARGE SUMMARY: DATE OF ADMISSION: 10/16/16 DATE OF DISCHARGE: 10/21/16 PRIMARY CARE PROVIDER: Miky Shanks NP SURGEON: Dr. Bustillo. 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 SECONDARY DIAGNOSES: 1. Dementia. 2. Hypothyroidism. 3. Hypertension. DISCHARGE MEDICATIONS: 1. Vitamin D 1000 units p.o. twice daily. 2. Carafate 1 g p.o. b.i.d. 3. Risperdal 0.25 mg p.o. q.h.s. 4. Remeron 15 mg p.o. q.h.s. 5. Namenda 5 mg p.o. b.i.d. 6. Levothyroxine 125 mcg p.o. daily. 7. Omeprazole 20 mg p.o. b.i.d. 8. Amlodipine 2.5 mg p.o. daily (new). HOSPITAL COURSE: Ms. Lamar is a 80-year-old female with unknown paraesophageal hernia who was admitted at the end of June with a GI bleed at that time related to severe esophagitis. The esophagitis was felt to be due to her large paraesophageal hiatal hernia. The patient had been home in her usual state of health until the day prior to admission when she suddenly did not feel well. She was noted to be vomiting and having brown emesis. The patient's daughter brought the patient to the emergency room for evaluation. In the ER, the patient was found to have gastric outlet obstruction due to worsening of her large paraesophageal hiatal hernia. The patient was seen in consultation by Dr. Bustillo, who felt that NG tube decompression was good for start. It was felt that she would likely need surgical intervention. With NG tube decompression, the patient ultimately did well. On 10/18/16, she underwent an upper GI series, which revealed relief of the obstruction. Given the patient's overall fairly good health, the decision was made to pursue repair of her giant hiatal hernia. The patient underwent laparoscopic repair with Dr. Bustillo on 06/03. The patient has done incredibly well postoperatively. She has been eating full liquid diet without any difficulty. Her pain is under control. At this point, the patient has been recommended to continue on a full liquid diet for the next one week and to follow up with Dr. Bustillo in the next 7 to 10 days. FOLLOWUP CONCERNS: The patient is being discharged to home today, 10/21/16. She should followup with Miky Shanks NP in the next 4 to [address] Bustillo in the next 7 to 10 days. ACTIVITY LEVEL: As tolerated. DIET: Full liquid. CONDITION ON DISCHARGE: Stable. TIME SEEN: 35 minutes were spent discharging this patient. [id number]/CPS #: [id number] MTDD
== END 2016-10-21 13:26 | disposition home health service (06) | DRG 328 ==
LOC: ED 15:22 → SSU 22:47
PROVIDERS: ADMIT Internal Medicine; ATTEND Hospitalist
PROC: 0D9670Z Drainage of Stomach with Drainage Device, Via Natural or Artificial Opening (ICD-10-PCS; principal; 2016-10-16)
PROC: 0BQS4ZZ (ICD-10-PCS; 2016-10-20)
PROC: 0BQR4ZZ (ICD-10-PCS; 2016-10-20)
DX: K44.0 Diaphragmatic hernia with obstruction, without gangrene (principal); I27.2 Other secondary pulmonary hypertension; G30.9 Alzheimer's disease, unspecified; F02.80 Dementia in other diseases classified elsewhere, unspecified severity, without behavioral disturbance, psychotic disturbance, mood disturbance, and anxiety; E03.9 Hypothyroidism, unspecified; F41.9 Anxiety disorder, unspecified; I10 Essential (primary) hypertension; Z96.653 Presence of artificial knee joint, bilateral; K21.9 Gastro-esophageal reflux disease without esophagitis; H26.9 Unspecified cataract; K20.9 Esophagitis, unspecified
CPT/HCPCS: 36415; 71010; 74177; 74246; 80048; 80053; 82150; 82728; 83540; 83550; 83605; 83690; 83880; 85025; 85027; 86140; 93005; 93306; 99284; A9270-GY; J0330; J0690; J1100; J1644; J1756; J1885; J2250; J2270; J2405; J2704; J3010; Q9967

== ENCOUNTER 2016-12-24 10:08 | Emergency (ER) | payer MEDICARE, BC ==
[2016-12-24] MEDS ORDERED: NS 0.9% 1000 ML* 1,000 ML IV ONE (12:38)
--- NOTE | 2016-12-24 12:56 | ED ---
Neurological HPI - HPI Summary HPI Summary: Pt presents w/ Lt arm pain since influenza vaccine in Lt arm on 12/08/2016. Here today as daughter noticed weakness w/ Lt hand yesterday around 12pm when taking pills - not as dextrous and favoring Rt side. She also notes mom was not herself yesterday - less energetic and enthusiastic from baseline. Also more pale than usual, "face just hanging" - no obvious asymmetry noted. Daughter states pt reported JACKMAN this morning - pt denies JACKMAN at present as well as visual change. Pt does report pain along Rt posterior rib/flank. Daughter also noticed she is walking differently even with walker, not sure if this is from favoring Lt leg? H/o HTN but controlled w/o meds at this time. No h/o CVA, clotting or bleeding issues. No anticoagulant therapy at present. She does have h/o dementia and takes meds for this. - History of Current Complaint Hx Obtained From: Patient, Family/Imaging System Administrator - daughter Pain Intensity: 2 - Additional Pertinent History Primary Care Physician: [id number] <Katy Chavez - Last Filed: 12/24/16 18:51> <Nirali Benitez - Last Filed: 12/25/16 04:00> - History of Current Complaint Chief Complaint: EDGeneral Stated Complaint: LEFT ARM PAIN Time Seen by Provider: 12/24/16 12:11 - Allergy/Home Medications Allergies/Adverse Reactions: Allergies Allergy/AdvReac Type Severity Reaction Status Date / Time No Known Allergies Allergy Verified 12/24/16 10:21 PMH/Surg Hx/FS Hx/Imm Hx Previously Healthy: Yes Endocrine/Hematology History: Reports: Hx Thyroid Disease, Hx Anemia Denies: Hx Anticoagulant Therapy, Hx Blood Disorders Cardiovascular History: Reports: Hx Hypertension - well controlled w/o meds at this time Denies: Hx Aneurysm, Hx Angina, Hx Cardiac Arrest, Hx Congenital Heart Disease, Hx Congestive Heart Failure, Hx Coronary Artery Disease, Hx Deep Vein Thrombosis, Hx Myocardial Infarction GI History: Reports: Hx Gastroesophageal Reflux Disease, Hx Hiatal Hernia Musculoskeletal History: Reports: Other Musculoskeletal History - Weakness, orthopedic surgeries Bilateral Knee Replacement Sensory History: Reports: Hx Cataracts - R eye Denies: Hx Contacts or Glasses, Hx Hearing Aid Opthamlomology History: Reports: Hx Cataracts - R eye Denies: Hx Contacts or Glasses Neurological History: Reports: Hx Dementia - on meds Denies: Hx CVA Psychiatric History: Reports: Hx Anxiety - Surgical History Surgery Procedure, Year, and Place: Bilateral knee replacement, bunion surgery. Hysterectomy Hx Anesthesia Reactions: No Infectious Disease History: No Infectious Disease History: Denies: Traveled Outside the [place] in Last 30 Days - Family History Known Family History: Negative: Cardiac Disease, Hypertension, Diabetes - Social History Occupation: Retired Lives: With Family Alcohol Use: None Hx Substance Use: No Substance Use Type: Reports: None Hx Tobacco Use: No Smoking Status (MU): Never Smoked Tobacco <Katy Chavez - Last Filed: 12/24/16 18:51> Review of Systems Positive: Fatigue - as per daughter in HPI. Negative: Fever, Chills Eyes: Negative Negative: Photophobia, Blurred Vision, Diplopia ENT: Negative Negative: Sore Throat Cardiovascular: Negative Negative: Chest Pain Respiratory: Negative Negative: Shortness Of Breath, Cough Gastrointestinal: Negative Negative: Abdominal Pain, Vomiting, Diarrhea, Nausea Positive: no symptoms reported Musculoskeletal: Other - see HPI Skin: Negative Neurological: Other - see HPI Psychological: Other - see HPI All Other Systems Reviewed And Are Negative: Yes <Katy Chavez - Last Filed: 12/24/16 18:51> Physical Exam - Summary Physical Exam Summary: Level 5 caveat - pt with dementia Triage Information Reviewed: Yes Vital Signs On Initial Exam: Initial Vitals Temp Pulse Resp BP Pulse Ox 97.6 F 86 20 115/76 94 12/24/16 10:10 12/24/16 10:10 12/24/16 10:10 12/24/16 10:10 12/24/16 10:10 Vital Signs Reviewed: Yes Appearance: Positive: Well-Appearing, No Pain Distress - at rest - when asked where she's having pain she points to Rt posterior ribs/flank area, Well- Nourished Skin: Positive: Warm, Dry Head/Face: Positive: Normal Head/Face Inspection Eyes: Positive: Normal, EOMI, JO ANN, Conjunctiva Clear. Negative: Conjunctiva Inflammed, Discharge ENT: Positive: Normal ENT inspection, Hearing grossly normal, Pharynx normal, TMs normal. Negative: Nasal congestion, Nasal drainage, Tonsillar swelling, Tonsillar exudate Dental: Negative: Abscess @ Neck: Positive: Supple, Nontender, No Lymphadenopathy Respiratory/Lung Sounds: Positive: Clear to Auscultation, Breath Sounds Present. Negative: Rales, Rhonchi, Stridor, Wheezes Cardiovascular: Positive: Normal, RRR, Pulses are Symmetrical in both Upper and Lower Extremities, S1, S2. Negative: Murmur, Rub, Leg Edema Left, Leg Edema Right Abdomen Description: Positive: Nontender, No Organomegaly, Soft Bowel Sounds: Positive: Present Musculoskeletal: Negative: Strength/ROM Intact - Lt hand gamma operator is 3/5 where Rt hand gamma operator is 4/5; moving all extremities actively against gravity and able to hold against resistance in LE's; Lt biceps w/ mild TTP Neurological: Positive: CN Intact II-III - EXCEPT decreased sensation over Lt forehead, Facial Symmetry, Speech Normal. Negative: Sensory/Motor Intact - sensation decreased over, Alert, Oriented to Person Place, Time, Pronator Drift Present Psychiatric: Positive: Normal - relaxed, calm, cooperative - [place] Coma Scale Coma Scale Total: 15 <Katy Chavez - Last Filed: 12/24/16 18:51> Vital Signs On Initial Exam: Initial Vitals Temp Pulse Resp BP Pulse Ox 97.6 F 86 20 115/76 94 12/24/16 10:10 12/24/16 10:10 12/24/16 10:10 12/24/16 10:10 12/24/16 10:10 <Nirali Benitez - Last Filed: 12/25/16 04:00> Diagnostics - Vital Signs Vital Signs Temp Pulse Resp BP Pulse Ox 12/24/16 10:10 97.6 F 86 20 115/76 94 - Laboratory Result Diagrams: 12/24/16 14:19 12/24/16 14:19 Lab Statement: Any lab studies that have been ordered have been reviewed, and results considered in the medical decision making process. <Katy Chavez - Last Filed: 12/24/16 18:51> - Vital Signs Vital Signs Temp Pulse Resp BP Pulse Ox 12/24/16 16:24 80 14 156/85 97 12/24/16 10:10 97.6 F 86 20 115/76 94 - Laboratory Lab Results: Lab Results 12/24/16 12/24/16 12/24/16 Range/Units 14:19 14:19 14:19 WBC 6.0 (3.5-10.8) 10^3/ul RBC 4.85 (4.0-5.4) 10^6/ul Hgb 14.5 (12.0-16.0) g/dl Hct 43 (35-47) % MCV 89 (80-97) fL MCH 30 (27-31) pg MCHC 33 (31-36) g/dl RDW 18 H (10.5-15) % Plt Count 319 (150-450) 10^3/ul MPV 8 (7.4-10.4) um3 Neut % (Auto) 75.0 (38-83) % Lymph % (Auto) 17.9 L (25-47) % [place] % (Auto) 5.4 (1-9) % Eos % (Auto) 1.0 (0-6) % Baso % (Auto) 0.7 (0-2) % Absolute Neuts (auto) 4.5 (1.5-7.7) 10^3/ul Absolute Lymphs (auto) 1.1 (1.0-4.8) 10^3/ul Absolute Monos (auto) 0.3 (0-0.8) 10^3/ul Absolute Eos (auto) 0.1 (0-0.6) 10^3/ul Absolute Basos (auto) 0 (0-0.2) 10^3/ul Absolute Nucleated RBC 0.01 10^3/ul Nucleated RBC % 0.1 INR (Anticoag Therapy) 0.90 (0.89-1.11) APTT 33.8 (26.0-36.3) seconds D-Dimer, Quantitative 531 H (Less Than 230) ng/mL Sodium 134 (133-145) mmol/L Potassium 4.2 (3.5-5.0) mmol/L Chloride 103 (101-111) mmol/L Carbon Dioxide 25 (22-32) mmol/L Anion Gap 6 (2-11) mmol/L BUN 11 (6-24) mg/dL Creatinine 0.72 (0.51-0.95) mg/dL Est GFR ( Amer) 100.2 (>60) Est GFR (Non-Af Amer) 77.9 (>60) BUN/Creatinine Ratio 15.3 (8-20) Glucose 97 (70-100) mg/dL Lactic Acid (0.5-2.0) mmol/L Calcium 9.6 (8.6-10.3) mg/dL Total Bilirubin 0.40 (0.2-1.0) mg/dL AST 18 (13-39) U/L ALT 11 (7-52) U/L Alkaline Phosphatase 57 (34-104) U/L Troponin I 0.01 (<0.04) ng/mL Total Protein 7.4 (6.4-8.9) g/dL Albumin 4.0 (3.2-5.2) g/dL Globulin 3.4 (2-4) g/dL Albumin/Globulin Ratio 1.2 (1-3) Triglycerides 133 mg/dL Cholesterol 219 mg/dL LDL Cholesterol 136 mg/dL HDL Cholesterol 56.2 mg/dL Vitamin B12 1339 H (180-914) pg/mL TSH 2.74 (0.34-5.60) mcIU/mL Urine Color Urine Appearance Urine pH (5-9) Ur Specific [place] (1.010-1.030) Urine Protein (Negative) Urine Ketones (Negative) Urine Blood (Negative) Urine Nitrate (Negative) Urine Bilirubin (Negative) Urine Urobilinogen (Negative) Ur Leukocyte Esterase (Negative) Urine WBC (Auto) (Absent) Urine RBC (Auto) (Absent) Ur Squamous Epith Cells (Absent) Urine Bacteria (Absent) Urine Glucose (Negative) Blood Type Antibody Screen Antibody Identification Direct Antiglob Test 12/24/16 12/24/16 12/24/16 Range/Units 14:19 14:19 17:05 WBC (3.5-10.8) 10^3/ul RBC (4.0-5.4) 10^6/ul Hgb (12.0-16.0) g/dl Hct (35-47) % MCV (80-97) fL MCH (27-31) pg MCHC (31-36) g/dl RDW (10.5-15) % Plt Count (150-450) 10^3/ul MPV (7.4-10.4) um3 Neut % (Auto) (38-83) % Lymph % (Auto) (25-47) % [place] % (Auto) (1-9) % Eos % (Auto) (0-6) % Baso % (Auto) (0-2) % Absolute Neuts (auto) (1.5-7.7) 10^3/ul Absolute Lymphs (auto) (1.0-4.8) 10^3/ul Absolute Monos (auto) (0-0.8) 10^3/ul Absolute Eos (auto) (0-0.6) 10^3/ul Absolute Basos (auto) (0-0.2) 10^3/ul Absolute Nucleated RBC 10^3/ul Nucleated RBC % INR (Anticoag Therapy) (0.89-1.11) APTT (26.0-36.3) seconds D-Dimer, Quantitative (Less Than 230) ng/mL Sodium (133-145) mmol/L Potassium (3.5-5.0) mmol/L Chloride (101-111) mmol/L Carbon Dioxide (22-32) mmol/L Anion Gap (2-11) mmol/L BUN (6-24) mg/dL Creatinine (0.51-0.95) mg/dL Est GFR ( Amer) (>60) Est GFR (Non-Af Amer) (>60) BUN/Creatinine Ratio (8-20) Glucose (70-100) mg/dL Lactic Acid 0.8 (0.5-2.0) mmol/L Calcium (8.6-10.3) mg/dL Total Bilirubin (0.2-1.0) mg/dL AST (13-39) U/L ALT (7-52) U/L Alkaline Phosphatase (34-104) U/L Troponin I (<0.04) ng/mL Total Protein (6.4-8.9) g/dL Albumin (3.2-5.2) g/dL Globulin (2-4) g/dL Albumin/Globulin Ratio (1-3) Triglycerides mg/dL Cholesterol mg/dL LDL Cholesterol mg/dL HDL Cholesterol mg/dL Vitamin B12 (180-914) pg/mL TSH (0.34-5.60) mcIU/mL Urine Color Yellow Urine Appearance Cloudy Urine pH 6.0 (5-9) Ur Specific [place] 1.013 (1.010-1.030) Urine Protein Negative (Negative) Urine Ketones Negative (Negative) Urine Blood Negative (Negative) Urine Nitrate Negative (Negative) Urine Bilirubin Negative (Negative) Urine Urobilinogen Negative (Negative) Ur Leukocyte Esterase 3+ H (Negative) Urine WBC (Auto) 3+(>20/hpf) H (Absent) Urine RBC (Auto) Trace(0-2/hpf) (Absent) Ur Squamous Epith Cells Present H (Absent) Urine Bacteria Absent (Absent) Urine Glucose Negative (Negative) Blood Type A Negative Antibody Screen Positive Antibody Identification Anti-D Direct Antiglob Test Negative Result Diagrams: 12/24/16 14:19 12/24/16 14:19 Lab Statement: Any lab studies that have been ordered have been reviewed, and results considered in the medical decision making process. <Nirali Benitez - Last Filed: 12/25/16 04:00> NIH Scale - NIH Scale Level of Consciousness: Alert/Keenly Responsive Ask Pt to Open/Close Eyes and Field Support Representative/Release Non-Paretic Hand: Both Correctly Best Gaze (Only Horizontal Eye Movement): Normal Visual Field Testing: No Visual Loss Motor Function - Right Arm: No Drift-Holds 10 Seconds Motor Function - Left Arm: Drifts LT 10 seconds Motor Function - Right Leg: No Drift-Holds 10 Seconds Motor Function - Left Leg: Drifts LT 10 seconds Limb Ataxia-Must be out of Proportion to Weakness Present: Absent Sensory (Use Pinprick to Test Arms/Legs/Trunk/Face): Pinprick Less on Affected - decreased gross touch over Lt forehead and Lt UE, Lt inner calf - pinprick not tested Best Language (Describe Picture, Name Items): No Aphasia Dysarthria (Read Several Words): Normal Extinction and Inattention: No Abnormality <Katy Chavez - Last Filed: 12/24/16 18:51> Course/Dx - Course Course Of Treatment: Spoke w/ Dr. Richard - okay to proceed w/ CVA w/u - outside window for ischemic clot tx however could have hemorrhage - called CT for STAT imaging - discussed w/ Cynthia, kiln charger, about higher level of care needs - Cynthia aware and agrees w/ making changes. Spoke w Dr. Garcia - will see pt. UPDATE: Dr. Rodriguez does not feel this is acute CVA, TIA. Per Jennifer, does not need admission for further observation/testing - okay to d/c from neuro standpoint but will w/u for other causes of sx. Will cancel NEURO testing but continue to evaluate for other causes of sx today. Per Dr. Rodriguez, pt may f/u w / PCP and return to ED if danger s/sx present. Labs are unremarkable for acute pathology and ab/pelvis CT neg for stone as pt has Rt flank pain - delayed urine results so CT ordered before - U/A results are also unremarkable for acute pathology. U/S of Lt UE neg for DVT. Will r/o cardiac pathology and dissection w/ labs - if positive, stay for observation, further w/u. Discussed w / Dr. Melendez. <Katy Chavez - Last Filed: 12/24/16 18:51> - Course Assessment/Plan: extensive workup neg for neur/ cardiac cause, patient with + UA , will treat for UTI due to MS changes, currently asymptomatic with L arm/ hand , full ROM/ strength sensation intact. started ASA for ? TIA, macrobid for UTi. Follow up with PCP. daugther in agreement <Nirali Benitez - Last Filed: 12/25/16 04:00> - Diagnoses Provider Diagnoses: UTI (urinary tract infection) Discharge <Katy Chavez - Last Filed: 12/24/16 18:51> <Nirali Benitez - Last Filed: 12/25/16 04:00> - Discharge Plan Condition: Stable Disposition: HOME Referrals: Miky Shanks FUR CUTTING MACHINE OPERATOR [Primary Care Provider] -
--- NOTE | 2016-12-24 13:14 | RAD ---
HISTORY: Left arm pain, left arm weakness COMPARISONS: August 07, 2016 TECHNIQUE: Multiple contiguous axial CT scans were obtained of the head without intravenous contrast. FINDINGS: HEMORRHAGE/INFARCT: There is no hemorrhage or acute infarct. MASSES/SHIFT: There is no mass or shift. EXTRA-AXIAL SPACES: There are no extra-axial fluid collections. SULCI AND VENTRICLES: The sulci and ventricles are normal in size and position for the patient's stated age. CEREBRUM: There is hypoattenuation of the periventricular and subcortical white matter. BRAINSTEM: There are no focal parenchymal abnormalities. CEREBELLUM: There are no focal parenchymal abnormalities. VESSELS: The vessels are grossly normal. PARANASAL SINUSES: The paranasal sinuses are clear. ORBITS: The orbits are unremarkable. BONES AND SOFT TISSUE: No bone or soft tissue abnormalities are noted. OTHER: None IMPRESSION: NO ACUTE INTRACRANIAL PATHOLOGY. CHRONIC SMALL VESSEL ISCHEMIC CHANGE
--- NOTE | 2016-12-24 13:15 | RAD ---
HISTORY: Neurological changes COMPARISONS: October 16, 2016 VIEWS: 1: frontal portable view of the chest at 1:08 PM. The patient is obliqued to the left. FINDINGS: LINES AND TUBES: None. CARDIOMEDIASTINAL SILHOUETTE: The cardiomediastinal silhouette is stable. PLEURA: The costophrenic angles are sharp. No pleural abnormalities are noted. LUNG PARENCHYMA: The lung volumes are low. The lungs are clear accounting for the phase of respiration. ABDOMEN: The upper abdomen is clear. There is no subphrenic gas. BONES AND SOFT TISSUES: No bone or soft tissue abnormalities are noted. IMPRESSION: LOW LUNG VOLUMES. NO ACTIVE CARDIOPULMONARY DISEASE.
[2016-12-24 15:18] LABS: Hematocrit 43 % (35-47); Hemoglobin 14.5 g/dl (12.0-16.0); Mean Corpuscular HGB Conc 33 g/dl (31-36); Mean Corpuscular Hemoglobin 30 pg (27-31); Mean Corpuscular Volume 89 fL (80-97); Mean Platelet Volume 8 um3 (7.4-10.4); Red Blood Count 4.85 10^6/ul (4.0-5.4); Red Cell Distribution Width 18 % (10.5-15)
[2016-12-24 15:29] LABS: BUN/Creatinine Ratio 15.3 (8-20); Calcium 9.6 mg/dL (8.6-10.3); EGFR African American 100.2 (>60); EGFR Non-African American 77.9 (>60); Globulin 3.4 g/dL (2-4); HDL Cholesterol 56.2 mg/dL; Potassium 4.2 mmol/L (3.5-5.0); Total Bilirubin 0.4 mg/dL (0.2-1.0); Total Protein 7.4 g/dL (6.4-8.9)
[2016-12-24 15:31] LABS: Troponin I 0.01 ng/mL (<0.04)
[2016-12-24 15:55] LABS: TSH (Thyroid Stimulating Horm) 2.74 mcIU/mL (0.34-5.60)
[2016-12-24 16:25] VITALS: BP 156/85
[2016-12-24] MEDS ORDERED: NS 0.9% 1000 ML* 1,000 ML IV SCH (17:00)
[2016-12-24] MEDS ORDERED: NS 0.9% 250 ML* 150 ML IV SCH (17:00)
[2016-12-24] MEDS ORDERED: Acetaminophen TAB* 325 MG PO ONE (17:18)
[2016-12-24 17:22] LABS: Urine Bacteria Absent (Absent); Urine Bilirubin Negative (Negative); Urine Glucose Negative (Negative); Urine Nitrite Negative (Negative)
--- NOTE | 2016-12-24 17:50 | RAD ---
CLINICAL HISTORY: Right flank pain COMPARISON: October 16, 2016 TECHNIQUE: Multiple contiguous axial CT scans were obtained of the abdomen and pelvis, without intravenous contrast enhancement. Coronal and sagittal multiplanar reformations are submitted for review. Oral contrast was not administered. FINDINGS: The study is limited by the lack of intravenous contrast. This limits evaluation of the solid organs and vasculature. LUNG BASES: The lung bases are clear. LIVER: The liver is normal in shape, size, contour, and attenuation. BILE DUCTS: There is no intrahepatic or extrahepatic biliary dilatation. GALLBLADDER: The gallbladder is normal, without pericholecystic inflammatory change. PANCREAS: The pancreas is normal, without mass or ductal dilatation. SPLEEN: Normal in size and appearance. UPPER GI TRACT: Evaluation of the gastrointestinal tract is limited by incomplete gastric distention. The upper GI tract is unremarkable. SMALL BOWEL AND MESENTERY: The small bowel is normal in contour, course, and caliber. There is no obstruction or dilatation. COLON: There are multiple diverticula of the sigmoid colon. There is no pericolonic inflammatory change. There is a tubular, vermiform, hollow viscus that is blind ending, and originates from the cecum, consistent with a normal appendix. There is no periappendiceal inflammatory change. This is best seen on axial images 120 through 125. ADRENALS: Normal bilaterally. KIDNEYS: The kidneys are normal in shape, size, contour, and axis. There is no hydronephrosis or nephrolithiasis. BLADDER: The bladder is incompletely distended but is grossly normal. PELVIC ORGANS: The pelvic organs are not visualized. AORTA: There is calcific atherosclerotic disease of the abdominal aorta and its branches, without aneurysmal dilatation IVC: Unremarkable LYMPH NODES: There is no lymphadenopathy by size criteria. ABDOMINAL WALL: There is no evidence for abdominal wall hernia. BONES AND SOFT TISSUES: There is a scoliotic curvature of the spine. Degenerative changes are noted. OTHER: None IMPRESSION: DIVERTICULOSIS. NO HYDRONEPHROSIS OR NEPHROLITHIASIS.
--- NOTE | 2016-12-24 18:13 | CONS ---
CONSULTATION REPORT: DATE OF CONSULT: 12/24/16 REASON FOR CONSULT: Question of TIA. REQUESTING PRACTITIONERS: Dr. Richard and his physician fleet administrative assistant, Katy. HISTORY OF PRESENT ILLNESS: Rocío Lamar is an 81-year-old woman with a history of known dementia, who at baseline is in physical therapy and walks with a walker, who has had declined since obtaining a flu shot toward the end of November. Since that time, she has not been quite herself. There has been some discomfort in the left upper extremity. She, in the last week, has had less attention to details of picking up her feet and lining up with a chair to sit down; this inattention happens off and on. Yesterday, she seemed not to have the energy that she usually does and her head seemed to be held down. She was not interested in [employer], she normally would be. She has had variable speech, at times can be mumbling, at times slurred, other times normal. She complained this morning that her left hand was not right, but there were not any further details. Later in the day, she complained of back pain when she was in wheelchair. Later, she complained of head pain. All these symptoms have now resolved. Of note, Ms. Lamar has significant dementia and could not remember that she was in the emergency room from the beginning of the consultation to the end of the consultation. She could not remember her birthday. She did not know what season it was. PAST MEDICAL HISTORY: Rocío Lamar's past medical history includes hypothyroidism; dementia; previous diagnosis of hypertension, now off antihypertensive medications. She had a history of gastric outlet obstruction and paraesophageal hiatal hernia with repair in September. History of bilateral knee surgeries, foot surgery. CURRENT MEDICATIONS: Include: 1. Carafate 1 g p.o. q. day. 2. Levothyroxine 0.125 mg p.o. q. day. 3. Memantine 5 mg p.o. b.i.d. 4. Omeprazole 20 mg p.o. q. day. 5. Mirtazapine 15 mg p.o. q.h.s. 6. Risperidone 0.25 mg p.o. q.h.s. 7. Phosphatidylserine 1 tablet p.o. q. day. 8. B12 unknown dose p.o. q. day. 9. Vitamin D 2000 International Units p.o. q. day. 10. Supplement of DHA/EPA 250/100 p.o. q. day. ALLERGIES: She has no known drug allergies. FAMILY HISTORY: Includes mother who in her 80s. Father in his 90s of unknown cause. Two sisters had lung cancer. One brother had throat cancer, all smokers and of her 5 children, one daughter in her early 40s of breast cancer. SOCIAL HISTORY: Rocío Lamar lives with her daughter. She does not smoke, does not drink alcohol. PHYSICAL EXAM: Today, Ms. Lamar's most recent temperature was 97.6 degrees Fahrenheit. She had a regular cardiac rhythm with a pulse of 86, respiratory rate was 20, saturation was 94%, blood pressure was 115/76. She had a regular cardiac rhythm. Her lungs are clear to auscultation. There was no evidence of peripheral edema. Her peripheral pulses were intact. There was no rash or petechiae. She was awake. She was alert. She had a hard time following fast speech. When slowing down questions, she was unable to be oriented. She knew her name. She did not know where she was and could not remember what was told to her. She did not know the season, the month, the year, the president. She did not know her birthday. Pupils were equal and responsive to light. Her fundi were flat. She had full extraocular movements without saccadic intrusions. She had full solorio to confrontation. Her facial expression, sensation, hearing were equal. Palate was upgoing. Tongue was midline. Sternocleidomastoid and trapezius were 5/5 in strength. There was no pronator drift, normal bulk and tone. There was decreased range of movement of the left shoulder. She gave a good resistance in her arms and legs, was able to do [id number] and [id number] movements without ataxia. There was no asymmetry to pinprick, cold, or light touch, and no length-dependent changes could be detected. Her reflexes were 2+ in the upper extremities, 1+ at the knees, 1+ at the ankles. Toes were flexor response. When she walked, she walks with a walker. She had evidence of scoliosis and kyphosis and she was independent with the walker. DIAGNOSTIC STUDIES/LAB DATA: Includes CT of the brain, which did show atrophy as well as periventricular small vessel ischemic disease. This film was reviewed directly. There was no evidence of bleed. She also had a chest x-ray, which showed low lung volumes, but no active cardiopulmonary disease. Her laboratory tests are pending. IMPRESSION AND PLAN: Rocío Lamar is an 81-year-old woman with a history of hypothyroidism, dementia in the emergency room with subacute decline, which includes decreased energy, interest in activities, variable speech, left-sided pain, headache, back pain. There is no clear focality on history or examination. One of the difficulties is dementia and that she cannot remember her history. In addition, at any time when you ask what is wrong, you will get a new chief complaint. There was no clear focality on examination. There is a subacute decline and certainly antigen introduction with flu shot can make people feel tired initially. I would expect this to have improved. The decline more recently with less energy and interest suggest there may be more of a global infection such as viral infection. Urinary tract infection is on the differential and we will check urinalysis. I have also suggested to the ER that they check complete metabolic panel, CBC, TSH, B12, folate, look for dehydration, look for electrolyte changes and treat accordingly. At this point , there is no clear indication of a neurologic etiology that would result in admission. Clearly if there is a change or concern, she should return to the emergency room. TIME SPENT: Over an hour was spent in direct [id number], patient care education was given to the daughter and I spoke to the physician's fleet administrative assistant in charge of her care. All questions were answered. [id number]/[facility] #: [id number] SAM
--- NOTE | 2016-12-24 18:28 | RAD ---
HISTORY: Left upper extremity pain COMPARISONS: None relevant TECHNIQUE: Multiple transverse and longitudinal ultrasound images were obtained of the left upper extremity from the level of the internal jugular vein inferiorly through to the infra-cubital veins using grayscale, color Doppler, and spectral Doppler imaging with and without compression and with augmentation. Comparison images were obtained of the contralateral internal jugular vein and subclavian vein. FINDINGS: VEINS: The venous system of the left upper extremity is compressible throughout its course, with normal flow on color Doppler imaging and normal response to augmentation on spectral Doppler imaging. SOFT TISSUES: Unremarkable. OTHER FINDINGS: None. IMPRESSION: NO LEFT UPPER EXTREMITY DEEP VEIN THROMBOSIS
[2016-12-24] MEDS ORDERED: Mirtazapine TAB* 15 MG PO ONE (19:03)
[2016-12-24] MEDS ORDERED: Memantine TAB* 5 MG PO ONE (19:03)
[2016-12-24] MEDS ORDERED: Iohexol 350* (CONTRAST) 500 ML MDV IV ONE (19:43)
--- NOTE | 2016-12-24 20:27 | RAD ---
HISTORY: Elevated d-dimer COMPARISONS: July 16, 2016 TECHNIQUE: Multiple contiguous axial CT scans of the chest were obtained after the administration of nonionic intravenous contrast, timed to the pulmonary arterial phase of contrast enhancement.. Coronal and sagittal multiplanar reformations are also submitted for review. FINDINGS: Evaluation limited by patient breathing motion artifact. NECK AND THYROID: The lower neck and thyroid are unremarkable. CHEST WALL: There is no lower cervical, axillary, or supraclavicular lymphadenopathy by size criteria. HEART AND PERICARDIUM: The heart is unremarkable. AORTA AND PULMONARY VASCULATURE: There is no pulmonary arterial filling defect to suggest pulmonary embolism. Evaluation of the aorta is limited by the phase of contrast demonstration; however, there is no obvious linear filling defect within the aorta to suggest aortic dissection. MEDIASTINUM: There is no mediastinal lymphadenopathy by size criteria. RODRIGUEZ: There is no hilar lymphadenopathy by size criteria. AIRWAY AND ESOPHAGUS: The airway is unremarkable, without endobronchial filling defect. The esophagus is grossly normal. LUNG PARENCHYMA: There is linear atelectasis of the right lung base. PLEURA: There is elevation of the right hemidiaphragm suggestive of diaphragmatic paralysis. UPPER ABDOMEN: The upper abdomen is unremarkable. BONES AND SOFT TISSUES: Degenerative changes are noted of the spine OTHER: None. IMPRESSION: 1. NO PULMONARY ARTERIAL FILLING DEFECT TO SUGGEST PULMONARY EMBOLISM. 2. 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
[2016-12-24] MEDS ORDERED: Nitrofurantoin Macrocrystals* 100 MG CAP PO ONE (22:00)
[2016-12-24] MEDS ORDERED: Aspirin EC TAB* 325 MG PO ONE (22:24)
--- NOTE | 2016-12-26 08:52 | ED ---
Progress - Progress Note Progress Note: This patient is an 81 year old F presenting to ED with a chief complaint of weakness since 1 day ago. The CC is described as in her L hand. Pt has a hard time picking things up. The patient rates the pain 6/10 in severity. Symptoms aggravated by nothing. Symptoms alleviated by nothing. Patient reports back pain and L arm pain since flu shot on 12/08/16. Pt reports JACKMAN (spontaneously resolved. Daughter reports pt was dragging her feet even with her walker since 1 day ago. 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 KETTY ROBLEDO 8:51AM 12/26/2016 Course/Dx - Course Course Of Treatment: Spoke w/ Dr. Richard - okay to proceed w/ CVA w/u - outside window for ischemic clot tx however could have hemorrhage - called CT for STAT imaging - discussed w/ Cynthia, charge operator, about higher level of care needs - Cynthia aware and agrees w/ making changes. Spoke w Dr. Garcia - will see pt. UPDATE: Dr. Rodriguez does not feel this is acute CVA, TIA. Per Jennifer, does not need admission for further observation/testing - okay to d/c from neuro standpoint but will w/u for other causes of sx. Will cancel NEURO testing but continue to evaluate for other causes of sx today. Per Dr. Rodriguez, pt may f/u w / PCP and return to ED if danger s/sx present. Labs are unremarkable for acute pathology and ab/pelvis CT neg for stone as pt has Rt flank pain - delayed urine results so CT ordered before - U/A results are also unremarkable for acute pathology. U/S of Lt UE neg for DVT. Will r/o cardiac pathology and dissection w/ labs - if positive, stay for observation, further w/u. Discussed w / Dr. Melendez. - Diagnoses Provider Diagnoses: UTI (urinary tract infection)
--- NOTE | 2016-12-27 08:54 | ED ---
Progress - Progress Note Progress Note: This patient is an 81 year old F presenting to ED with a chief complaint of weakness since 1 day ago. The CC is described as in her L hand. Pt has a hard time picking things up. The patient rates the pain 6/10 in severity. Symptoms aggravated by nothing. Symptoms alleviated by nothing. Patient reports back pain and L arm pain since flu shot on 12/08/16. Pt reports JACKMAN (spontaneously resolved. Daughter reports pt was dragging her feet even with her walker since 1 day ago. 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 KETTY ROBLEDO 8:51AM 12/26/2016 UPDATE: Macrobid appears to be effective against organism - spoke w/ pt's daughter who reports she started taking anbx yesterday. Still not herself but eating, drinking, urinating and no fever. Advised if same or worse tomorrow, return to hospital as she may need IV anbx, etc. Daughter aware of potential dangers and agrees w/ plan. She further reports mom has been getting sick once a month w/ UTI's and tends to knock her for a loop. Course/Dx - Course Course Of Treatment: Spoke w/ Dr. Richard - okay to proceed w/ CVA w/u - outside window for ischemic clot tx however could have hemorrhage - called CT for STAT imaging - discussed w/ Cynthia, chargeback analyst, about higher level of care needs - Cynthia aware and agrees w/ making changes. Spoke w Dr. Garcia - will see pt. UPDATE: Dr. Rodriguez does not feel this is acute CVA, TIA. Per Jennifer, does not need admission for further observation/testing - okay to d/c from neuro standpoint but will w/u for other causes of sx. Will cancel NEURO testing but continue to evaluate for other causes of sx today. Per Dr. Rodriguez, pt may f/u w / PCP and return to ED if danger s/sx present. Labs are unremarkable for acute pathology and ab/pelvis CT neg for stone as pt has Rt flank pain - delayed urine results so CT ordered before - U/A results are also unremarkable for acute pathology. U/S of Lt UE neg for DVT. Will r/o cardiac pathology and dissection w/ labs - if positive, stay for observation, further w/u. Discussed w / Dr. Melendez. - Diagnoses Provider Diagnoses: UTI (urinary tract infection)
--- NOTE | 2016-12-28 04:21 | ED ---
I, Jack Jay, scribed for Eldon Richard MD on 12/24/16 at 1308 . Progress - Progress Note Progress Note: This patient is an 81 year old F presenting to ED with a chief complaint of weakness since 1 day ago. The CC is described as in her L hand. Pt has a hard time picking things up. The patient rates the pain 6/10 in severity. Symptoms aggravated by nothing. Symptoms alleviated by nothing. Patient reports back pain and L arm pain since flu shot on 12/08/16. Pt reports JACKMAN (spontaneously resolved. Daughter reports pt was dragging her feet even with her walker since 1 day ago. Course/Dx - Course Course Of Treatment: Spoke w/ Dr. Richard - okay to proceed w/ CVA w/u - outside window for ischemic clot tx however could have hemorrhage - called CT for STAT imaging - discussed w/ Cynthia, special agent in charge, about higher level of care needs - Cynthia aware and agrees w/ making changes. Spoke w Dr. Garcia - will see pt - Diagnoses Provider Diagnoses: UTI (urinary tract infection) The documentation as recorded by the Pierre ocasio Nikita accurately reflects the service I personally performed and the decisions made by me, Eldon Richard MD.
== END 2016-12-24 22:17 | disposition home or self-care (01) ==
LOC: ED 10:08
DX: N39.0 Urinary tract infection, site not specified (principal); R53.1 Weakness; R53.83 Other fatigue
CPT/HCPCS: 36415; 70450; 71010; 71275; 74176; 80053; 80061; 81003; 81015; 82607; 83605; 84443; 84484; 85025; 85379; 85610; 85730; 86850; 86870; 86880; 86900; 86901; 87077; 87086; 87186; 93005; 99282; A9270-GY; Q9967

== ENCOUNTER 2017-08-11 09:11 | Emergency (ER) | payer MEDICARE, OTHER ==
--- OUTSIDE RECORDS SUMMARY | 2017-08-11 10:06 | XMS REPORT ---
:1935 External Reference #:[id number] Author Organization [facility] Address [address] [place] [address] Phone [phone] Care Team Providers Name Role Phone CHINO Vázquez Care Team Information Zumba Instructor Unavailable Payers Type Date Identification Numbers Payment Provider Subscriber Medicare Primary Policy Number: [id number] [facility] [id number] [address] [place] [address] [facility] Policy Number: [id number] [facility] Ulises Wolfe Group Name: [facility] [address] PayID: [id number] [place] [address] Problems Description No Information Social History Type Date Description Comments Marital Status Lives With Alone lives next to her daughter Diet Healthy, Well Balanced Pets None Occupation Retired used to work as a nursing aid. Cigarette Use Former Cigarette Smoker briefly smoked in her teens...did not like it. ETOH Use Denies alcohol use Recreational Drug Use Denies Drug Use Daily Caffeine Does Not Consume Caffeine Enjoy Exercising Enjoys exercising not very active Allergies, Adverse Reactions, Alerts Date Description Reaction Status Severity Comments 11/26/2015 NKDA active Medications Medication Date Status Form Strength Qnty SIG Indications Ordering Provider 4 Wheeled Walker 07/21 Active dx code r54 R54 Efrain With Seat MD Mayra Cephalexin 05/30 Active Tablets 500mg 10tab 1 tab by N39.0 Efrain /2017 s mouth twice [place] a day for 5 , MD days Trimethoprim 05/27 Active Solution 36205-0.1 10ml apply 1 H10.9 Bogdan Sulfate/Polymyx Unit/ML-% drop to Makenna n B Sulfate affected III, eye 4 times DELICATESSEN MANAGER-C daily for 5 days Vitamin D 09/02 Active Liquid 400Unit/M 4000 units wnt L daily Dallas Shanks DELICATESSEN MANAGER-C Risperidone 01/24 Active Tablets 0.25mg 90tab take one nt s tablet by Dallas Shanks, mouth at [facility] bedtime Mirtazapine 01/24 Active Tablets 15mg 30tab take one G47.00 Shant s tablet by Dallas Shanks, mouth at [facility] bedtime replaces seroquel Namenda 12/13 Active Tablets 5mg 60tab take 1 s tablet by Dallas Shanks, mouth once [facility] daily for one week then increase to twice daily for dementia. Levothyroxine Active Tablets 125mcg 90tab 1 by mouth Shawnti Sodium / s daily for Dallas Shanks thyroid DELICATESSEN MANAGER-C [place] 3 Active Capsules Unknown /0000 Nitrofurantoin 05/29 Hx Capsules 100mg 14cap 1 tab by N39.0 Melo Macrocrystal s mouth twice Shortle, - a day for 7 LAWN CARE TECHNICIAN Doxycycline 12/26 Hx Capsules 100mg 14cap 1 by mouth Borawcaitlini cl s twice a day Dallas Shanks, - for 7 days DELICATESSEN MANAGER-C 01/02 Cipro 12/06 Hx Tablets 500mg 14tab 1 tab by N39.0 Melo s mouth twice Shortle, - a day for 7 LAWN CARE TECHNICIAN Macrobid 09/07 Hx Capsules 100mg 14cap 1 tab by Renetta s mouth twice Aviva, - a day x7 DELICATESSEN MANAGER-C Doxycycline 09/06 Hx Tablets 100mg 20tab 1 tab by Renetta Hymariolaate s mouth twice Aviva, - a day x 10 DELICATESSEN MANAGER-C Cephalexin 09/02 Hx Tablets 250mg 21tab 1 by mouth N39.0 Shaw s three times Dallas Shanks, - a day for 7 DELICATESSEN MANAGER-C 09/06 days urine infection Omeprazole 09/[address] 20mg 30cap take 1 s capsule by Dallas Shanks, - mouth twice DELICATESSEN MANAGER-C 03/08 daily for weeks Prednisolone 01/19 Hx Suspension 1% 1 gtt to Unknown right eye - qid x14 Chair Lift 01/06 Hx 1unit mechanical R53.1 s chair lift Dallas Shanks, - with remote DELICATESSEN MANAGER-C 09/02 for in and out of chairs. Seroquel 01/06 Hx Tablets 25mg 30tab 1 po qhs G47.00 s Dallas Shanks, - DELICATESSEN MANAGER-C 01/24 No Active 11/25 Hx Dallas Shanks, - DELICATESSEN MANAGER-C 12/10 Ofloxacin Hx Solution 0.3% 1gtt to Unknown (Ophthalmic) / right eye - qid 09/02 Multivitamin 00 Hx Tablets 1 by mouth Unknown Women /0000 every day - 09/02 Amlodipine Hx Tablets 5mg 30tab take one wnti Besylate /0000 s tablet by Dallas Shanks, - mouth every DELICATESSEN MANAGER-C Potassium 00 Hx Tablets ER 20Meq 30tab one by wnti Chloride Josee ER /0000 s mouth daily Dallas Shanks, - DELICATESSEN MANAGER-C 09/02 Amlodipine Hx Tablets 5mg Take 1/ 2 Unknown Besylate /0000 Tablet By - Mouth Once 12/06 Macrobid 00 Hx Capsules 100mg 1 tab by Unknown /0000 mouth twice - a day x7 Immunizations CPT Code Status Date Vaccine Lot # [id number] Given 12/08/2016 Influenza Vaccine High Dose PF [id number] Given 11/26/2015 Influenza Vaccine High Dose PF [id number] Vital Signs Date Vital Result Comment 07/21/2017 Weight 131.00 lb Weight in kg's 59.422 BP Systolic 100 mmHg ? BP Diastolic 60 mmHg ? Heart Rate 76 /min Body Temperature 96.9 F Respiratory Rate 16 /min 05/29/2017 Weight 137.00 lb Weight in kg's 62.143 BP Systolic 138 mmHg BP Diastolic 84 mmHg Heart Rate 72 /min Body Temperature 95.9 F Respiratory Rate 20 /min 05/27/2017 Weight 137.00 lb Weight in kg's 62.143 BP Systolic 120 mmHg BP Diastolic 84 mmHg Heart Rate 92 /min Body Temperature 98.0 F Respiratory Rate 16 /min 03/08/2017 Weight 134.00 lb Weight in kg's 60.782 BP Systolic 128 mmHg BP Diastolic 85 mmHg Heart Rate 108 /min Body Temperature 99.3 F O2 % BldC Oximetry 92 % 12/13/2016 Weight 137.00 lb Weight in kg's 62.143 BP Systolic 116 mmHg BP Diastolic 76 mmHg Heart Rate 72 /min Body Temperature 98.7 F Respiratory Rate 16 /min O2 % BldC Oximetry 97 % 12/08/2016 Weight 135.00 lb Weight in kg's 61.236 BP Systolic 120 mmHg BP Diastolic 70 mmHg Heart Rate 80 /min Body Temperature 97.1 F Respiratory Rate 14 /min 12/06/2016 Weight 134.00 lb Weight in kg's 60.782 BP Systolic 98 mmHg BP Diastolic 60 mmHg Heart Rate 104 /min Body Temperature 100.0 F Respiratory Rate 16 /min 09/02/2016 Weight 142.00 lb Weight in kg's 64.411 BP Systolic 110 mmHg BP Diastolic 70 mmHg Body Temperature 97.5 F Respiratory Rate 14 /min 08/18/2016 Weight 145.00 lb Weight in kg's 65.772 BP Systolic 110 mmHg BP Diastolic 64 mmHg Heart Rate 88 /min Body Temperature 97.1 F Respiratory Rate 14 /min 05/26/2016 Weight 152.00 lb Weight in kg's 68.947 BP Systolic 144 mmHg BP Diastolic 88 mmHg Heart Rate 104 /min Body Temperature 97.3 F Respiratory Rate 18 /min Height 59.5 inches 4'11.50" BMI (Body Mass Index) 30.2 kg/m2 O2 % BldC Oximetry 97 % 04/07/2016 Weight 149.00 lb Weight in kg's 67.586 BP Systolic 120 mmHg BP Diastolic 80 mmHg Heart Rate 94 /min Body Temperature 96.8 F Respiratory Rate 12 /min O2 % BldC Oximetry 98 % 01/25/2016 Weight 147.00 lb Weight in kg's 66.679 BP Systolic 138 mmHg BP Diastolic 84 mmHg Heart Rate 88 /min Body Temperature 97.6 F Respiratory Rate 16 /min 01/07/2016 Weight 145.00 lb Weight in kg's 65.772 BP Systolic 120 mmHg BP Diastolic 80 mmHg Heart Rate 60 /min Body Temperature 97.3 F Respiratory Rate 12 /min 12/29/2015 Weight 146.00 lb Weight in kg's 66.226 BP Systolic 135 mmHg BP Diastolic 85 mmHg Heart Rate 100 /min 12/11/2015 Weight 145.00 lb Weight in kg's 65.772 BP Systolic 120 mmHg BP Diastolic 76 mmHg Heart Rate 100 /min Body Temperature 98.7 F Respiratory Rate 16 /min 11/26/2015 Weight 146.00 lb Weight in kg's 66.226 BP Systolic 124 mmHg BP Diastolic 72 mmHg Heart Rate 76 /min Body Temperature 98.6 F Respiratory Rate 18 /min Height 59.25 inches 4'11.25" BMI (Body Mass Index) 29.2 kg/m2 Results Test Date Test Result H/L Range Note Urine DIP 07/21/2017 Leukocytes ++ Neg Urine Nitrites neg Neg Urobilinogen norm Norm Total Protein, Urine neg Neg Urine pH 5 5-6 Urine Blood neg Neg Specific [place] 1.015 1.01-1.02 Urine Ketones neg Neg Urine Bilirubin + Neg Urine Glucose norm Norm Urine Culture And Sensitivities 06/26/2017 Urine Culture SEE RESULT BELOW 1 Urine DIP 06/26/2017 Leukocytes ++ Neg Urine Nitrites neg Neg Urobilinogen norm Norm Total Protein, Urine neg Neg Urine pH 5 5-6 Urine Blood neg Neg Specific [place] 1.020 1.01-1.02 Urine Ketones neg Neg Urine Bilirubin neg Neg Urine Glucose norm Norm Laboratory test finding 05/29/2017 Genital Culture SEE RESULT BELOW 2 Urine Culture And Sensitivities 05/29/2017 Urine Culture SEE RESULT BELOW 3 Urine DIP 05/29/2017 Leukocytes ++ Neg Urine Nitrites neg Neg Urobilinogen norm Norm Total Protein, Urine neg Neg Urine pH 5 5-6 Urine Blood trace Neg Specific [place] 1.020 1.01-1.02 Urine Ketones neg Neg Urine Bilirubin neg Neg Urine Glucose norm Norm Laboratory test finding 12/24/2016 Direct Antiglobulin Test NEGATIVE Antibody Identification SEE RESULTS BELO <SEE NOTE> 4 Antibody Id Autocontrol 0 D Dimer Quantitative 531 ng/mL High Less Than 230 5 Type & Screen 12/24/2016 Patient Blood Type A Negative Antibody Screen POSITIVE Laboratory test finding 12/24/2016 Troponin-I (TnI) 0.01 ng/mL <0.04 TSH (Thyroid Stimulating Horm) 2.74 mcIU/mL 0.34-5.60 Vitamin B12 1339 pg/mL High 180-914 6 Lipid Profile (Trig/Chol/HDL) 12/24/2016 Triglycerides 133 mg/dL 7 Cholesterol 219 mg/dL 8 HDL Cholesterol 56.2 mg/dL 9 LDL Cholesterol 136 mg/dL 10 Comp Metabolic Panel 12/24/2016 Sodium 134 mmol/L 133-145 Potassium 4.2 mmol/L 3.5-5.0 Chloride 103 mmol/L 101-111 Co2 Carbon Dioxide 25 mmol/L 22-32 Anion Gap 6 mmol/L 2-11 Glucose 97 mg/dL 70-100 Blood Urea Nitrogen 11 mg/dL 6-24 Creatinine 0.72 mg/dL 0.51-0.95 BUN/Creatinine Ratio 15.3 8-20 Calcium 9.6 mg/dL 8.6-10.3 Total Protein 7.4 g/dL 6.4-8.9 Albumin 4.0 g/dL 3.2-5.2 Globulin 3.4 g/dL 2-4 Albumin/Globulin Ratio 1.2 1-3 Total Bilirubin 0.40 mg/dL 0.2-1.0 Alkaline Phosphatase 57 U/L 34-104 Alt 11 U/L 7-52 Ast 18 U/L 13-39 Egfr Non- 77.9 >60 Egfr 100.2 >60 11 Laboratory test finding 12/24/2016 Partial Thrombo Time 33.8 seconds 26.0 -36.3 PTT Inr/Protime 12/24/2016 Inr 0.90 0.89-1.11 Laboratory test finding 12/24/2016 Lactic Acid 0.8 mmol/L 0.5-2.0 12 CBC Auto Diff 12/24/2016 White Blood Count 6.0 10^3/uL 3.5-10.8 Red Blood Count 4.85 10^6/uL 4.0-5.4 Hemoglobin 14.5 g/dL 12.0-16.0 Hematocrit 43 % 35-47 Mean Corpuscular Volume 89 fL 80-97 Mean Corpuscular Hemoglobin 30 pg 27-31 Mean Corpuscular HGB Conc 33 g/dL 31-36 Red Cell Distribution Width 18 % High 10.5-15 Platelet Count 319 10^3/uL 150-450 Mean Platelet Volume 8 um3 7.4-10.4 Abs Neutrophils 4.5 10^3/uL 1.5-7.7 Abs Lymphocytes 1.1 10^3/uL 1.0-4.8 Abs Monocytes 0.3 10^3/uL 0-0.8 Abs Eosinophils 0.1 10^3/uL 0-0.6 Abs Basophils 0 10^3/uL 0-0.2 Abs Nucleated RBC 0.01 10^3/uL Granulocyte % 75.0 % 38-83 Lymphocyte % 17.9 % Low 25-47 Monocyte % 5.4 % 1-9 Eosinophil % 1.0 % 0-6 Basophil % 0.7 % 0-2 Nucleated Red Blood Cells % 0.1 Laboratory test finding 12/24/2016 Urine Culture SEE RESULT BELOW 13 Urinalysis Profile 12/24/2016 Urine Color Yellow Urine Appearance Cloudy Urine Specific [place] 1.013 1.010-1.030 Urine pH 6.0 5-9 Urine Urobilinogen Negative Negative Urine Ketones Negative Negative Urine Protein Negative Negative Urine Leukocytes 3+ Negative Urine Blood Negative Negative Urine Nitrite Negative Negative Urine Bilirubin Negative Negative Urine Glucose Negative Negative Urine White Blood Cell 3+(>20/hpf) Absent Urine Red Blood Cell Trace(0-2/hpf) Absent Urine Bacteria Absent Absent Urine Squamous Epithelial Cell Present Absent Urine DIP 12/08/2016 Leukocytes +++ Neg Urine Nitrites neg Neg Urobilinogen norm Norm Total Protein, Urine neg Neg Urine pH 5 5-6 Urine Blood neg Neg Specific [place] 1.010 1.01-1.02 Urine Ketones neg Neg Urine Bilirubin neg Neg Urine Glucose norm Norm Laboratory test 12/06/2016 Urine Culture And SEE RESULT BELOW 14 finding Sensitivities Urine DIP 12/06/2016 Leukocytes ++ Neg Urine Nitrites neg Neg Urobilinogen norm Norm Total Protein, Urine 30 High Neg Urine pH 5 5-6 Urine Blood 50 High Neg Specific [place] 1.015 1.01-1.02 Urine Ketones neg Neg Urine Bilirubin neg Neg Urine Glucose norm Norm Laboratory test finding 10/16/2016 Amylase 17 U/L Low 29-103 Lipase 10 U/L Low 11.0-82.0 C Reactive Protein 19.14 mg/L High < 5.00 15 Lactic Acid 2.2 mmol/L High 0.5-2.0 16 Comp Metabolic Panel 10/16/2016 Sodium 135 mmol/L 133-145 Potassium 3.2 mmol/L Low 3.5-5.0 Chloride 94 mmol/L Low 101-111 Co2 Carbon Dioxide 27 mmol/L 22-32 Anion Gap 14 mmol/L High 2-11 Glucose 164 mg/dL High 70-100 Blood Urea Nitrogen 17 mg/dL 6-24 Creatinine 0.88 mg/dL 0.51-0.95 BUN/Creatinine Ratio 19.3 8-20 Calcium 9.9 mg/dL 8.6-10.3 Total Protein 7.9 g/dL 6.4-8.9 Albumin 4.2 g/dL 3.2-5.2 Globulin 3.7 g/dL 2-4 Albumin/Globulin Ratio 1.1 1-3 Total Bilirubin 0.60 mg/dL 0.2-1.0 Alkaline Phosphatase 82 U/L 34-104 Alt 14 U/L 7-52 Ast 18 U/L 13-39 Egfr Non- 62.0 >60 Egfr 79.7 >60 17 CBC Auto Diff 10/16/2016 White Blood Count 13.6 10^3/uL High 3.5-10.8 Red Blood Count 4.88 10^6/uL 4.0-5.4 Hemoglobin 13.8 g/dL 12.0-16.0 Hematocrit 42 % 35-47 Mean Corpuscular Volume 86 fL 80-97 Mean Corpuscular Hemoglobin 28 pg 27-31 Mean Corpuscular HGB Conc 33 g/dL 31-36 Red Cell Distribution Width 15 % 10.5-15 Platelet Count 321 10^3/uL 150-450 Mean Platelet Volume 8 um3 7.4-10.4 Abs Neutrophils 12.3 10^3/uL High 1.5-7.7 Abs Lymphocytes 0.7 10^3/uL Low 1.0-4.8 Abs Monocytes 0.5 10^3/uL 0-0.8 Abs Eosinophils 0 10^3/uL 0-0.6 Abs Basophils 0 10^3/uL 0-0.2 Abs Nucleated RBC 0.01 10^3/uL Granulocyte % 90.6 % High 38-83 Lymphocyte % 5.3 % Low 25-47 Monocyte % 3.9 % 1-9 Eosinophil % 0 % 0-6 Basophil % 0.2 % 0-2 Nucleated Red Blood Cells % 0.1 Laboratory test finding 10/16/2016 B-Type Natriuretic Peptide 191 pg/mL High 18 BNP Urine DIP 09/02/2016 Leukocytes ++ Neg Urine Nitrites NEG Neg Urobilinogen NORM Norm Total Protein, Urine TRACE Neg Urine pH 5 5-6 Urine Blood 50 High Neg Specific [place] 1.020 1.01-1.02 Urine Ketones NEG Neg Urine Bilirubin NEG Neg Urine Glucose NORM Norm Laboratory test 09/02/2016 Urine Culture And SEE RESULT BELOW 19 finding Sensitivities CBC Auto Diff 04/07/2016 White Blood Count 7.0 10^3/uL 3.5-10.8 20 Red Blood Count 4.55 10^6/uL 4.0-5.4 20 Hemoglobin 14.4 g/dL 12.0-16.0 20 Hematocrit 43 % 35-47 20 Mean Corpuscular Volume 95 fL 80-97 20 Mean Corpuscular Hemoglobin 32 pg High 27-31 20 Mean Corpuscular HGB Conc 33 g/dL 31-36 20 Red Cell Distribution Width 14 % 10.5-15 20 Platelet Count 249 10^3/uL 150-450 20 Mean Platelet Volume 9 um3 7.4-10.4 20 Abs Neutrophils 4.5 10^3/uL 1.5-7.7 20 Abs Lymphocytes 1.8 10^3/uL 1.0-4.8 20 Abs Monocytes 0.5 10^3/uL 0-0.8 20 Abs Eosinophils 0.1 10^3/uL 0-0.6 20 Abs Basophils 0 10^3/uL 0-0.2 20 Abs Nucleated RBC 0.01 10^3/uL 20 Granulocyte % 65.1 % 38-83 20 Lymphocyte % 25.1 % 25-47 20 Monocyte % 7.6 % 1-9 20 Eosinophil % 1.7 % 0-6 20 Basophil % 0.5 % 0-2 20 Nucleated Red Blood Cells % 0.1 20 Laboratory test 04/07/2016 TSH (Thyroid 0.33 mcIU/mL Low 0.34-5.60 20, 21 finding Stimulating Horm) Free T4 1.56 ng/dL High 0.61-1.12 20, 22 Total T3 0.81 ng/mL Low 0.87-1.78 20, 23 CBC Auto Diff 11/26/2015 White Blood Count 6.6 10^3/uL 3.5-10.8 Red Blood Count 4.53 10^6/uL 4.0-5.4 Hemoglobin 14.7 g/dL 12.0-16.0 Hematocrit 44 % 35-47 Mean Corpuscular Volume 98 fL High 80-97 Mean Corpuscular Hemoglobin 32 pg High 27-31 Mean Corpuscular HGB Conc 33 g/dL 31-36 Red Cell Distribution Width 13 % 10.5-15 Platelet Count 222 10^3/uL 150-450 Mean Platelet Volume 8 um3 7.4-10.4 Abs Neutrophils 4.8 10^3/uL 1.5-7.7 Abs Lymphocytes 1.4 10^3/uL 1.0-4.8 Abs Monocytes 0.3 10^3/uL 0-0.8 Abs Eosinophils 0.1 10^3/uL 0-0.6 Abs Basophils 0 10^3/uL 0-0.2 Abs Nucleated RBC 0 10^3/uL Granulocyte % 72.0 % 38-83 Lymphocyte % 21.0 % Low 25-47 Monocyte % 5.3 % 1-9 Eosinophil % 1.2 % 0-6 Basophil % 0.5 % 0-2 Nucleated Red Blood Cells % 0 Comp Metabolic Panel 11/26/2015 Sodium 137 mmol/L 133-145 Potassium 4.0 mmol/L 3.5-5.0 Chloride 103 mmol/L 101-111 Co2 Carbon Dioxide 29 mmol/L 22-32 Anion Gap 5 mmol/L 2-11 Glucose 80 mg/dL 70-100 Blood Urea Nitrogen 14 mg/dL 6-24 Creatinine 0.84 mg/dL 0.51-0.95 BUN/Creatinine Ratio 16.7 8-20 Calcium 9.2 mg/dL 8.6-10.3 Total Protein 6.4 g/dL 6.4-8.9 Albumin 4.0 g/dL 3.2-5.2 Globulin 2.4 g/dL 2-4 Albumin/Globulin Ratio 1.7 1-3 Total Bilirubin 0.70 mg/dL 0.2-1.0 Alkaline Phosphatase 45 U/L 34-104 Alt 9 U/L 7-52 Ast 16 U/L 13-39 Egfr Non- 65.4 >60 Egfr 84.1 >60 24 Laboratory test 11/26/2015 TSH (Thyroid Stim 15.77 mcIU/mL High 0.34-5.60 25 finding Horm) Vitamin B12 427 pg/mL 180-914 26 Lipid Profile (Trig/Chol/HDL) 11/26/2015 Triglycerides 146 mg/dL 27 Cholesterol 233 mg/dL 28 HDL Cholesterol 66.5 mg/dL 29 LDL Cholesterol 137 mg/dL 30 1 SEE RESULT BELOW Name: ULISES WOLFE : [address]: Miky Shanks NP Acct: [id number] Unit: [id number] AGE: 81 Location: [facility] Re06/26/17 SEX: F Status: REG REF SPEC: [id number] LELIA: 06/26/17-1153 [facility] DR: Miky Shanks NP REQ: [id number] RECD: 06/26/17-2 STATUS: COMP _ SOURCE: URINE SPDESC: ORDERED: Urine Culture COMMENTS: [id number] Procedure Result Reported Site Urine Culture Final 06/27/17- 1504 ML Organism 1 STREP GROUP B Simla Count 1-10,000 (Few) CFU/ML Susceptibility testing of penicillins and other B-lactams approved by FDA for treatment of Streptococcus pyogenes (Group A Strep) and Streptococcus agalactiae (Group B Strep) is not necessary for clinical purposes and need not be done routinely, since as with vancomycin, resistant strains have not been recognized. (CLSI X460-I64;p.66) Positive isolates will be saved for one week. Please call the Microbiology Laboratory if further susceptibility testing is needed. * ML - Main Lab . END OF REPORT DEPARTMENT OF PATHOLOGY, [address] [place] [address] Darrius Corea M.D. Director [facility] # [id number] 2 SEE RESULT BELOW Name: ULISES WOLFE : [address]: Melo Noe NP Acct: [id number] Unit: [id number] AGE: 81 Location: [facility] Re05/29/17 SEX: F Status: REG REF SPEC: [id number] LELIA: 05/29/17-51 [facility] DR: Melo Noe NP REQ: [id number] RECD: 05/29/17 STATUS: COMP _ SOURCE: VAGINAL SPDESC: ORDERED: Genital Culture Procedure Result Reported Site Genital Culture Final 05/31/17- 1109 ML Organism 1 STREP GROUP B Quantity 2+ Organism 2 NORMAL EMILIO Quantity 2+ Susceptibility testing of penicillins and other B-lactams approved by FDA for treatment of Streptococcus pyogenes (Group A Strep) and Streptococcus agalactiae (Group B Strep) is not necessary for clinical purposes and need not be done routinely, since as with vancomycin, resistant strains have not been recognized. (CLSI J790-C41;p.66) Positive isolates will be saved for one week. Please call the Microbiology Laboratory if further susceptibility testing is needed. Routine genital cultures do not include selective agar for Neisseria gonorrhoeae. Molecular testing offers better test sensitivity and therefore is the preferred test methodology for identifying this organism. * ML - Main Lab . END OF REPORT DEPARTMENT OF PATHOLOGY, [address] [place] [address] Darrius Corea M.D. Director [facility] # [id number] 3 SEE RESULT BELOW Name: ULISES WOLFE : [address]: Melo Noe NP Acct: [id number] Unit: [id number] AGE: 81 Location: [facility] Re05/29/17 SEX: F Status: REG REF SPEC: [id number] LELIA: 05/29/[address]: Melo Noe NP REQ: [id number] RECD: 05/29/17 STATUS: COMP _ SOURCE: URINE SPDESC: ORDERED: Urine Culture COMMENTS: [id number] Urine Source: Random Procedure Result Reported Site Urine Culture Final 05/30/17- 1007 ML Organism 1 STREP GROUP B Simla Count 10-25,000 (Moderate) CFU/ML Organism 2 NORMAL EMILIO [place] Count 10-25,000 (Moderate) CFU/ML Susceptibility testing of penicillins and other B-lactams approved by FDA for treatment of Streptococcus pyogenes (Group A Strep) and Streptococcus agalactiae (Group B Strep) is not necessary for clinical purposes and need not be done routinely, since as with vancomycin, resistant strains have not been recognized. (CLSI H726-I18;p.66) Positive isolates will be saved for one week. Please call the Microbiology Laboratory if further susceptibility testing is needed. * ML - Main Lab . END OF REPORT DEPARTMENT OF PATHOLOGY, [address] [place] [address] Darrius Corea M.D. Director [facility] # [id number] 4 SEE RESULTS BELOW C D 5 Please note: The following may produce a false positive D Dimer test: - Rheumatoid factor greater than 60 IU/ml - Plasma hemoglobin greater than 0.05 gm/dl - Bilirubin greater than 50 mg/dl - Lipids greater than 1000 mg/dl - FDP greater than 20 ug/ml 6 Normal Range 180 to 914 Indeterminate Range 145 to 180 Deficient Range <145 7 Desirable <150 Borderline high 150-199 High 200-499 Very High >500 8 Desirable <200 Borderline high 200-239 High >239 9 Low <40 Desirable: 40-60 High: >60 10 Desirable: <100 mg/dL Near Optimal: 100-129 mg/dL Borderline High: 130-159 mg/dL High: 160-189 mg/dL Very High: >189 mg/dL 11 Because ethnic data is not always readily available, this report includes an eGFR for both -Americans and non- Americans. The National Kidney Disease Education Program (NKDEP) does not endorse the use of the MDRD equation for patients that are not between the ages of 18 and 70, are , have extremes of body size, muscle mass, or nutritional status, or are non- or non-. According to the National Kidney Foundation, irrespective of diagnosis, the stage of the disease is based on the level of kidney function: Stage Description GFR(mL/min/1.73 m(2)) 1 Kidney damage with normal or decreased GFR 90 2 Kidney damage with mild decrease in GFR 60-89 3 Moderate decrease in GFR 30-59 4 Severe decrease in GFR 15-29 5 Kidney failure <15 (or dialysis) 12 Specimen hemolyzed. Result may not be valid. [facility] Severe Sepsis and Septic Shock Management Bundle Measure requires all lactic acids initially measuring >2.0 mmol/L be repeated. 13 SEE RESULT BELOW Name: ULISES WOLFE : [address]: Eldon Richard MD Acct: [id number] Unit: [id number] AGE: 81 Location: ED Re12/24/16 SEX: F Status: DEP ER SPEC: [id number] LELIA: 12/24/[address]: Katy QUIROZ REQ: [id number] RECD: 12/24/16 STATUS: ARIES LOCKHART DR: Miky Richard MD _ SOURCE: URINE SPDESC: ORDERED: Urine Culture Procedure Result Reported Site Urine Culture Final 12/26/16- 0854 ML Organism 1 STAPHYLOCOCCUS HAEMOLYTICUS Simla Count 75-100,000 (Many) CFU/ML 1. STAPHYLOCOCCUS HAEMOLYTICUS M.I.C. RX --------- ------ Penicillin >=0.5 R Gentamicin 8 I Linezolid 2 S Nitrofurantoin <=16 S Oxacillin >=4 R * Quinupristin/Dalfopristin <=0.25 S Rifampin <=0.5 S Tetracycline 2 S Doxycycline - Deduced S * Minocycline - Deduced S Tigecycline 0.25 S Vancomycin 1 S Imipenem-Deduced R * Ampicillin/Sulbactam-Deduced R Cefazolin-Deduced R * These antibiotics are not available in the [facility] Formulary Contact the Microbiology Department for any additional antibiotic reporting. * ML - MAIN LAB ([facility]) . END OF REPORT * ML=Testing performed at Main Lab DEPARTMENT OF PATHOLOGY, [address] [place] [address] Darrius Corea M.D. Director [facility] # [id number] 14 SEE RESULT BELOW Name: ULISES WOLFE : [address]: Santa Staff,Doctor Acct: [id number] Unit: [id number] AGE: 81 Location: [facility] Re12/06/16 SEX: F Status: REG REF SPEC: [id number] LELIA: 12/06/16-[address]: Melo Noe NP REQ: [id number] RECD: 12/06/16 STATUS: ARIES LOCKHART DR: Santa Staff,Doctor MELO NOE NP _ SOURCE: URINE SPDESC: ORDERED: Urine Culture COMMENTS: [id number] Procedure Result Reported Site Urine Culture Final 12/07/16- 1618 ML No growth of clinically significant organisms * ML - MAIN LAB ([facility]) . END OF REPORT * ML=Testing performed at Main Lab DEPARTMENT OF PATHOLOGY, [address] [place] [address] Darrius Corea M.D. Director [facility] # [id number] 15 Acute inflammation: >10.00 16 Critical Result LACT:2.2 Called to at: 18:38:17 by:[email or web address] Read back by: [facility] Severe Sepsis and Septic Shock Management Bundle Measure requires all lactic acids initially measuring >2.0 mmol/L be repeated. 17 Because ethnic data is not always readily available, this report includes an eGFR for both -Americans and non- Americans. The National Kidney Disease Education Program (NKDEP) does not endorse the use of the MDRD equation for patients that are not between the ages of 18 and 70, are , have extremes of body size, muscle mass, or nutritional status, or are non- or non-. According to the National Kidney Foundation, irrespective of diagnosis, the stage of the disease is based on the level of kidney function: Stage Description GFR(mL/min/1.73 m(2)) 1 Kidney damage with normal or decreased GFR 90 2 Kidney damage with mild decrease in GFR 60-89 3 Moderate decrease in GFR 30-59 4 Severe decrease in GFR 15-29 5 Kidney failure <15 (or dialysis) 18 >100 to <200 pg/mL: likely compensated congestive heart failure (CHF) 200 to 400 pg/mL: likely moderate CHF >400 pg/mL: likely moderate to severe CHF 19 SEE RESULT BELOW Name: ULISES WOLFE : [address]: Miky Shanks NP Acct: [id number] Unit: [id number] AGE: 80 Location: [facility] Re09/02/16 SEX: F Status: REG REF SPEC: [id number] LELIA: 09/02/[address]: Miky Shanks NP REQ: [id number] RECD: 09/02/16 STATUS: COMP _ SOURCE: URINE SPDESC: ORDERED: Urine Culture COMMENTS: [id number] Urine Source: Random Procedure Result Reported Site Urine Culture Final 09/06/16- 0725 ML Organism 1 VRE ENTEROCOCCUS FAECALIS Simla Count 50-75,000 (Many) CFU/ML 1. VRE ENTEROCOCCUS FAECALIS M.I.C. RX --------- ------ Ampicillin <=2 S Penicillin 8 S Ciprofloxacin >=8 R Gentamicin High Level R Levofloxacin >=8 R Linezolid 2 S Nitrofurantoin <=16 S * Quinupristin/Dalfopristin 4 R * Streptomycin High Level R Tetracycline <=1 S Doxycycline - Deduced S * Minocycline - Deduced S Tigecycline <=0.12 S Vancomycin >=32 R Imipenem-Deduced S * Ampicillin/Sulbactam-Deduced S CONTINUED ON NEXT PAGE * ML=Testing performed at Main Lab DEPARTMENT OF PATHOLOGY, [address] [place] [id number] Darrius Corea M.D. Director LISA # [id number] Patient: ULISES WOLFE [id number] (Continued) Specimen: [id number] Collected: 09/02/16 Received: 09/02/16-1815 (Continued) Procedure Result Reported Site Urine Culture Final (continued) * These antibiotics are not available in the [facility] Formulary Contact the Microbiology Department for any additional antibiotic reporting. * ML - MAIN LAB ([facility]) . END OF REPORT * ML=Testing performed at Main Lab DEPARTMENT OF PATHOLOGY, [address] [place] [address] Darrius Corea M.D. Director [facility] # [id number] 20 [id number] 21 [id number] 23 [id number] 24 Because ethnic data is not always readily available, this report includes an eGFR for both -Americans and non- Americans. The National Kidney Disease Education Program (NKDEP) does not endorse the use of the MDRD equation for patients that are not between the ages of 18 and 70, are , have extremes of body size, muscle mass, or nutritional status, or are non- or non-. According to the National Kidney Foundation, irrespective of diagnosis, the stage of the disease is based on the level of kidney function: Stage Description GFR(mL/min/1.73 m(2)) 1 Kidney damage with normal or decreased GFR 90 2 Kidney damage with mild decrease in GFR 60-89 3 Moderate decrease in GFR 30-59 4 Severe decrease in GFR 15-29 5 Kidney failure <15 (or dialysis) 25 [facility] [address] 26 Normal Range 180 to 914 Indeterminate Range 145 to 180 Deficient Range <145 27 Desirable <150 Borderline high 150-199 High 200-499 Very High >500 28 Desirable <200 Borderline high 200-239 High >239 29 Low <40 Desirable: 40-60 High: >60 30 Desirable: <100 mg/dL Near Optimal: 100-129 mg/dL Borderline High: 130-159 mg/dL High: 160-189 mg/dL Very High: >189 mg/dL Procedures Date CPT Code Description Status 12/29/2015 46212 EKG, at Least 12 Leads w/Interpretation and Report Completed Encounters Type Date Location Provider CPT E/M Dx Office Visit 07/21/2017 9:15a [place] [address] R54 N39.0 J06.9 Office Visit 05/29/2017 9:00a Main Office Melo Noe, LAWN CARE TECHNICIAN 82940 N39.0 N76.0 Office Visit 05/27/2017 9:30a Main Office Bogdan Tuckerarvin LAZO, DELICATESSEN MANAGER-C 50001 H10.9 N39.0 Office Visit 03/08/2017 3:00p [place] [address] J06.9 Office Visit 12/13/2016 3:00p Main Office Melo Noe, LAWN CARE TECHNICIAN 31067 M70.20 Office Visit 12/08/2016 9:45a Main Office Melo Noe, LAWN CARE TECHNICIAN 27221 N39.0 Z23 Office Visit 12/06/2016 2:30p Main Office Melo Noe, LAWN CARE TECHNICIAN 28450 N39.0 Office Visit 11/02/2016 4:45p Main Office Renetta Chicas, DELICATESSEN MANAGER-C 06687 K44.9 Office Visit 09/02/2016 4:45p Main Office Borawshruthi Shanks, DELICATESSEN MANAGER-C 75496 F03.91 N39.0 Office Visit 08/18/2016 2:30p Main Office Shawntady Shanks, DELICATESSEN MANAGER-C 00468 H26.9 R53.1 F02.81 Office Visit 05/26/2016 2:30p Main Office Shawntady Shanks, DELICATESSEN MANAGER-C G0438 Z00.00 Office Visit 04/07/2016 3:00p Main Office Shawnti RSlim Shanks, DELICATESSEN MANAGER-C 48899 E03.9 Office Visit 01/25/2016 2:15p Main Office Shawnti R. Dimitris, DELICATESSEN MANAGER-C 55630 F03.91 Office Visit 01/07/2016 2:15p Main Office Shawntady RSlim Shanks, DELICATESSEN MANAGER-C 47519 R53.1 G47.00 Office Visit 12/29/2015 3:30p Main Office Shawnti Dallas Shanks, DELICATESSEN MANAGER-C 68075 Z01.818 H26.9 Office Visit 12/11/2015 3:15p Main Office Miky YajairaSlim Shanks [facility] [address] R41.3 Office Visit 11/26/2015 9:30a Main Office iMky YajairaSlim [facility]imitris [facility] [address] R41.3 Z23 Plan of Care 07/21/2017 - Efrain Nunez, MDR54 Age-related physical debilityNew Medication :4 Wheeled Walker With SeatComments:She is requiring more care at home.Follow up :Refer to VNS Refer to home PTN39.0 Urinary tract infection, site not specifiedComments:Symptoms and urine dip are consistent with a urinary tract infection.There are no historical or physical indicators of a complicated infection. Will treat empirically with antibiotics, while also culturing the sample to ensure that the bacterium is sensitive to this treatment. Discussed risks and benefits of this treatment. Return to care if worsening or not improving.J06.9 Acute upper respiratory infection, unspecifiedComments:Upper respiratory infection. No historical or physical evidence of serious or bacterial infection.Recommended continued use of OTC meds for symptom control, hydration, rest, and discussed alarm symptoms.
[2017-08-11 10:24] LABS: ABS Basophils 0 10^3/ul (0-0.2); ABS Eosinophils 0 10^3/ul (0-0.6); ABS Lymphocytes 0.7 10^3/ul (1.0-4.8); ABS Monocytes 0.5 10^3/ul (0-0.8); ABS Neutrophils 8.1 10^3/ul (1.5-7.7); ABS Nucleated RBC 0 10^3/ul; Eosinophil % 0.1 % (0-6); Hematocrit 44 % (35-47); Hemoglobin 14.7 g/dl (12.0-16.0); Lymphocyte % 7.7 % (25-47); Mean Corpuscular HGB Conc 34 g/dl (31-36); Mean Corpuscular Hemoglobin 32 pg (27-31); Mean Corpuscular Volume 94 fL (80-97); Mean Platelet Volume 8.4 um3 (7.4-10.4); Nucleated Red Blood Cells % 0; Platelet Count 194 10^3/ul (150-450); Red Blood Count 4.65 10^6/ul (4.0-5.4); Red Cell Distribution Width 13 % (10.5-15); White Blood Count 9.4 10^3/ul (3.5-10.8)
[2017-08-11 10:44] LABS: EGFR Non-African American 83.3 (>60)
--- NOTE | 2017-08-11 10:48 | RAD ---
HISTORY: Altered mental status, chronic UTI COMPARISONS: None VIEWS: 1: frontal portable view of the chest at 10:15 AM FINDINGS: LINES AND TUBES: None. CARDIOMEDIASTINAL SILHOUETTE: The cardiomediastinal silhouette is normal for portable technique. PLEURA: The costophrenic angles are sharp. No pleural abnormalities are noted. LUNG PARENCHYMA: The lung volumes are low. There is linear opacification of the right lung base. ABDOMEN: The upper abdomen is clear. There is no subphrenic gas. BONES AND SOFT TISSUES: Degenerative changes are noted. IMPRESSION: LOW LUNG VOLUMES WITH LINEAR ATELECTASIS OF THE RIGHT LUNG BASE
[2017-08-11 11:22] LABS: Urine Appearance Clear; Urine Blood Negative (Negative); Urine Color Yellow; Urine Ketones 1+ (Negative); Urine Protein Negative (Negative); Urine Urobilinogen Negative (Negative)
--- NOTE | 2017-08-11 12:11 | RAD ---
HISTORY: Left hip pain COMPARISONS: None VIEWS: 3, Frontal view of the pelvis with frontal and frog-leg views of the left hip FINDINGS: BONE DENSITY: There is diffuse osteopenia. BONES: There is no displaced fracture. JOINTS: There is mild osteoarthritis of the hips and SI joints. ALIGNMENT: There is no dislocation. SOFT TISSUES: Unremarkable. OTHER FINDINGS: There is a scoliotic curvature of the spine. Degenerative changes are noted of the spine. IMPRESSION: OSTEOPENIA. MILD OSTEOARTHRITIS. NO ACUTE OSSEOUS INJURY. IF SYMPTOMS PERSIST, RECOMMEND REPEAT IMAGING.
[2017-08-11 13:50] VITALS: BP 148/62
--- NOTE | 2017-08-11 18:34 | ED ---
Gal Bee Gabriel, scribed for Timbo Talley MD on 08/11/17 at 0957 . Altered Mental Status - HPI Summary HPI Summary: This patient is a 81 year old F BIBA to [facility] accompanied by her daughter with a chief complaint of AMS that was noticed by the daughter this morning. The patient is reporting generalized pain. The patient rates the pain 6/10 in severity. Patients daughter reports fatigue and trouble ambulating. The patient s daughter reports that she found the patient balling her feces this morning and was leaving them around the room. The patient has been having monthly UTI s. Pt was taken off antihypertensive a year ago. The patients daughter is interested in hospice care. Hx dementia. Majority of the history was dictated by the daughter. - History Of Current Complaint Chief Complaint: EDAltMentalStatus Stated Complaint: LATHARGIC/WEAKNESS Time Seen by Provider: 08/11/17 09:24 Hx Obtained From: Patient, Family/Skip Hoist Operator Onset/Duration: Still Present Timing: Constant Severity Initially: Moderate Severity Currently: Moderate Character: Confusion Related History: Similar Episode/Diagnosed As: - UTI - Allergies/Home Medications Allergies/Adverse Reactions: Allergies Allergy/AdvReac Type Severity Reaction Status Date / Time No Known Allergies Allergy Verified 12/24/16 10:21 Home Medications: Home Medications Cholecalciferol CAP/TAB(NF) [Vitamin D3 CAP/TAB (NF)] 2,000 units PO QAM [History Confirmed 08/11/17] Cyanocobalamin/Cobamamide [Vitamin B-12 5,000 Mcg Tab Sl] 1 each SL QAM [History Confirmed 08/11/17] PMH/Surg Hx/FS Hx/Imm Hx Endocrine/Hematology History: Reports: Hx Thyroid Disease, Hx Anemia Denies: Hx Anticoagulant Therapy, Hx Blood Disorders, Hx Diabetes Cardiovascular History: Reports: Hx Hypertension - well controlled w/o meds at this time Denies: Hx Aneurysm, Hx Angina, Hx Cardiac Arrest, Hx Congenital Heart Disease, Hx Congestive Heart Failure, Hx Coronary Artery Disease, Hx Deep Vein Thrombosis, Hx Myocardial Infarction GI History: Reports: Hx Gastroesophageal Reflux Disease, Hx Hiatal Hernia History: Denies: Hx Renal Disease Musculoskeletal History: Reports: Other Musculoskeletal History - Weakness, orthopedic surgeries Bilateral Knee Replacement Sensory History: Reports: Hx Cataracts - R eye Denies: Hx Contacts or Glasses, Hx Hearing Aid Opthamlomology History: Reports: Hx Cataracts - R eye Denies: Hx Contacts or Glasses Neurological History: Reports: Hx Dementia - on meds Denies: Hx CVA Psychiatric History: Reports: Hx Anxiety - Surgical History Surgery Procedure, Year, and Place: Bilateral knee replacement, bunion surgery. Hysterectomy Hx Anesthesia Reactions: No Infectious Disease History: No Infectious Disease History: Denies: Traveled Outside the [place] in Last 30 Days - Family History Known Family History: Negative: Cardiac Disease, Hypertension, Diabetes - Social History Occupation: Retired Lives: With Family Alcohol Use: None Hx Substance Use: No Substance Use Type: Reports: None Hx Tobacco Use: No Smoking Status (MU): Never Smoked Tobacco Review of Systems Constitutional: Other - trouble ambulating Positive: Fatigue Musculoskeletal: Other - general pain Psychological: Other - AMS All Other Systems Reviewed And Are Negative: Yes Physical Exam - Summary Physical Exam Summary: Appearance: The patient is well-nourished in no acute distress and in no acute pain. Skin: The skin is warm and dry and skin color reflects adequate perfusion. HEENT: The head is normocephalic and atraumatic. The pupils are equal and reactive. The conjunctivae are clear and without drainage. Nares are patent and without drainage. Mouth reveals moist mucous membranes and the throat is without erythema and exudate. The external ears are intact. The ear canals are patent and without drainage. The tympanic membranes are intact. Neck: the neck is supple with full range of motion and non-tender. There are no carotid bruits. There is no neck vein distension. Respiratory: Chest is non-tender. Lungs are clear to auscultation and breath sounds are symmetrical and equal. Cardiovascular: Heart is regular rate and rhythm. There is no murmur or rub auscultated. There is no peripheral edema and pulses are symmetrical and equal. Abdomen: The abdomen is soft and non-tender. There are normal bowel sounds heard in all four quadrants and there is no organomegaly palpated. Musculoskeletal: There is no back tenderness noted. Extremities are non-tender with full range of motion. There is good capillary refill. There is no peripheral edema or calf tenderness elicited. Neurological: Patient is alert and oriented to person, place and time. The patient has symmetrical motor strength in all four extremities. Cranial nerves are grossly intact. Deep tendon reflexes are symmetrical and equal in all four extremities. Psychiatric: The patient has an appropriate affect and does not exhibit any anxiety or depression. Triage Information Reviewed: Yes Vital Signs On Initial Exam: Initial Vitals Temp Pulse Resp BP Pulse Ox 97.4 F 93 22 156/112 94 08/11/17 09:24 08/11/17 09:24 08/11/17 09:24 08/11/17 09:24 08/11/17 09:24 Vital Signs Reviewed: Yes Diagnostics - Vital Signs Vital Signs Temp Pulse Resp BP Pulse Ox 08/11/17 09:26 94 17 156/112 92 08/11/17 09:24 97.4 F 90 22 156/112 92 - Laboratory Lab Results: Lab Results 08/11/17 08/11/17 08/11/17 Range/Units 10:04 10:04 10:04 WBC 9.4 (3.5-10.8) 10^3/ul RBC 4.65 (4.0-5.4) 10^6/ul Hgb 14.7 (12.0-16.0) g/dl Hct 44 (35-47) % MCV 94 (80-97) fL MCH 32 H (27-31) pg MCHC 34 (31-36) g/dl RDW 13 (10.5-15) % Plt Count 194 (150-450) 10^3/ul MPV 8.4 (7.4-10.4) um3 Neut % (Auto) 86.0 H (38-83) % Lymph % (Auto) 7.7 L (25-47) % [place] % (Auto) 5.7 (0-7) % Eos % (Auto) 0.1 (0-6) % Baso % (Auto) 0.5 (0-2) % Absolute Neuts (auto) 8.1 H (1.5-7.7) 10^3/ul Absolute Lymphs (auto) 0.7 L (1.0-4.8) 10^3/ul Absolute Monos (auto) 0.5 (0-0.8) 10^3/ul Absolute Eos (auto) 0 (0-0.6) 10^3/ul Absolute Basos (auto) 0 (0-0.2) 10^3/ul Absolute Nucleated RBC 0 10^3/ul Nucleated RBC % 0 Sodium 140 (139-145) mmol/L Potassium 4.0 (3.5-5.0) mmol/L Chloride 109 (101-111) mmol/L Carbon Dioxide 22 (22-32) mmol/L Anion Gap 9 (2-11) mmol/L BUN 14 (6-24) mg/dL Creatinine 0.68 (0.51-0.95) mg/dL Est GFR ( Amer) 107.1 (>60) Est GFR (Non-Af Amer) 83.3 (>60) BUN/Creatinine Ratio 20.6 H (8-20) Glucose 102 H (70-100) mg/dL Lactic Acid 1.2 (0.5-2.0) mmol/L Calcium 9.1 (8.6-10.3) mg/dL Total Bilirubin 0.90 (0.2-1.0) mg/dL AST 13 (13-39) U/L ALT 9 (7-52) U/L Alkaline Phosphatase 58 (34-104) U/L Troponin I 0.00 (<0.04) ng/mL Total Protein 6.5 (6.4-8.9) g/dL Albumin 3.9 (3.2-5.2) g/dL Globulin 2.6 (2-4) g/dL Albumin/Globulin Ratio 1.5 (1-3) TSH 0.14 L (0.34-5.60) mcIU/mL Urine Color Urine Appearance Urine pH (5-9) Ur Specific [place] (1.010-1.030) Urine Protein (Negative) Urine Ketones (Negative) Urine Blood (Negative) Urine Nitrate (Negative) Urine Bilirubin (Negative) Urine Urobilinogen (Negative) Ur Leukocyte Esterase (Negative) Urine Glucose (Negative) 08/11/17 Range/Units 11:13 WBC (3.5-10.8) 10^3/ul RBC (4.0-5.4) 10^6/ul Hgb (12.0-16.0) g/dl Hct (35-47) % MCV (80-97) fL MCH (27-31) pg MCHC (31-36) g/dl RDW (10.5-15) % Plt Count (150-450) 10^3/ul MPV (7.4-10.4) um3 Neut % (Auto) (38-83) % Lymph % (Auto) (25-47) % [place] % (Auto) (0-7) % Eos % (Auto) (0-6) % Baso % (Auto) (0-2) % Absolute Neuts (auto) (1.5-7.7) 10^3/ul Absolute Lymphs (auto) (1.0-4.8) 10^3/ul Absolute Monos (auto) (0-0.8) 10^3/ul Absolute Eos (auto) (0-0.6) 10^3/ul Absolute Basos (auto) (0-0.2) 10^3/ul Absolute Nucleated RBC 10^3/ul Nucleated RBC % Sodium (139-145) mmol/L Potassium (3.5-5.0) mmol/L Chloride (101-111) mmol/L Carbon Dioxide (22-32) mmol/L Anion Gap (2-11) mmol/L BUN (6-24) mg/dL Creatinine (0.51-0.95) mg/dL Est GFR ( Amer) (>60) Est GFR (Non-Af Amer) (>60) BUN/Creatinine Ratio (8-20) Glucose (70-100) mg/dL Lactic Acid (0.5-2.0) mmol/L Calcium (8.6-10.3) mg/dL Total Bilirubin (0.2-1.0) mg/dL AST (13-39) U/L ALT (7-52) U/L Alkaline Phosphatase (34-104) U/L Troponin I (<0.04) ng/mL Total Protein (6.4-8.9) g/dL Albumin (3.2-5.2) g/dL Globulin (2-4) g/dL Albumin/Globulin Ratio (1-3) TSH (0.34-5.60) mcIU/mL Urine Color Yellow Urine Appearance Clear Urine pH 5.0 (5-9) Ur Specific [place] 1.020 (1.010-1.030) Urine Protein Negative (Negative) Urine Ketones 1+ A (Negative) Urine Blood Negative (Negative) Urine Nitrate Negative (Negative) Urine Bilirubin Negative (Negative) Urine Urobilinogen Negative (Negative) Ur Leukocyte Esterase Negative (Negative) Urine Glucose Negative (Negative) Result Diagrams: 08/11/17 10:04 08/11/17 10:04 Lab Statement: Any lab studies that have been ordered have been reviewed, and results considered in the medical decision making process. - Radiology CXR Radiology Interpretation Completed By: Radiologist - LOW LUNG VOLUMES WITH LINEAR ATELECTASIS OF THE RIGHT LUNG BASE ED physician has reviewed this radiology report. Hip/pelvis Xray Radiology Interpretation Completed By: Radiologist - LOW LUNG VOLUMES WITH LINEAR ATELECTASIS OF THE RIGHT LUNG BASE Hip pelvis ED physician has reviewed this radiology report. - EKG 10:09 Cardiac Rate: NL EKG Rhythm: Sinus Rhythm - at 95 BPM EKG Interpretation: PVC's Altered Mental Statu Course/Dx - Course Course Of Treatment: Ms. Lamar was brought in by her daughter with the concern that her mental status is gotten worse. It has been difficult for her daughter to take care of her. Her workup was unremarkable here and geriatric social work professor was asked to evaluate her. They arranged for her to have a home health aide at this time and she was discharged back to her home in stable condition. - Diagnoses Provider Diagnoses: Dementia Discharge - Sign-Out/Discharge Documenting (check all that apply): Discharge/Admit/Transfer - Discharge Plan Condition: Stable Disposition: HOME Patient Education Materials: Dementia (ED) Referrals: Miky Shanks, FRONT DESK RECEPTIONIST [Primary Care Provider] - 4 Days Additional Instructions: RETURN TO THE EMERGENCY DEPARTMENT FOR CHANGING OR WORSENING SYMPTOMS - Billing Disposition and Condition Condition: STABLE Disposition: HOME The documentation as recorded by the Gal ocasio Gabriel accurately reflects the service I personally performed and the decisions made by me, Timbo Talley MD.
== END 2017-08-11 13:48 | disposition home or self-care (01) ==
LOC: ED 09:11
DX: F03.90 Unspecified dementia, unspecified severity, without behavioral disturbance, psychotic disturbance, mood disturbance, and anxiety (principal); J98.11 Atelectasis; M85.88 Other specified disorders of bone density and structure, other site; M16.12 Unilateral primary osteoarthritis, left hip; Z79.899 Other long term (current) drug therapy
CPT/HCPCS: 36415; 71045; 80053; 81003; 83605; 84443; 84484; 85025; 93005; 99282

== ENCOUNTER 2017-12-18 09:34 | Emergency (ER) | payer MEDICARE, BC ==
--- NOTE | 2017-12-18 10:30 | ED ---
Complex/Multi-Sys Presentation - HPI Summary HPI Summary: LEVEL 5 CAVEAT: HPI LIMITED DUE TO PT CONDITION, DEMENTIA. 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 Patient may have lost her balance putting on her slippers from being seated in bed. Daughter believes patient fell forward onto the wood floor. Pt complains of back pain, CP pain and L- sided pain. Patient usually ambulates with walker. - History Of Current Complaint Chief Complaint: EDChestWallPain Time Seen by Provider: 12/18/17 09:57 Hx Obtained From: Patient, Family/Electronic Induction Hardener Hx From Patient Unobtainable Due To: Dementia Onset/Duration: Sudden Onset, Still Present Timing: Constant Severity Currently: Moderate Severity Initially: Moderate Associated Signs And Symptoms: Positive: Other - pos: L-sided pain, back pain, CP - Allergies/Home Medications Allergies/Adverse Reactions: Allergies Allergy/AdvReac Type Severity Reaction Status Date / Time No Known Allergies Allergy Verified 12/24/16 10:21 Home Medications: Home Medications Cholecalciferol TAB* [Vitamin D TAB*] 4,000 units PO DAILY 12/18/17 [History Confirmed 12/18/17] Cyanocobalamin TAB* [Vitamin B12 TAB*] 500 mcg PO DAILY 12/18/17 [History Confirmed 12/18/17] Levothyroxine TAB* [Synthroid TAB*] 112 mcg PO DAILY 12/18/17 [History Confirmed 12/18/17] Magnesium Oxide TAB* [MagOx 400 TAB*] 400 mg PO DAILY 12/18/17 [History Confirmed 12/18/17] Memantine TAB* [Namenda TAB*] 5 mg PO BID 12/18/17 [History Confirmed 12/18/17] Mirtazapine TAB* [Remeron TAB*] 15 mg PO BEDTIME 12/18/17 [History Confirmed 04/06] Triamcinolone 0.025% OINT * 1 applic TOPICAL BID 12/18/17 [History Confirmed 04/06] risperiDONE TAB* [RisperDAL*] 0.5 mg PO BEDTIME 12/18/17 [History Confirmed 04/06] PMH/Surg Hx/FS Hx/Imm Hx Previously Healthy: No Endocrine/Hematology History: Reports: Hx Thyroid Disease, Hx Anemia Denies: Hx Anticoagulant Therapy, Hx Blood Disorders, Hx Diabetes Cardiovascular History: Reports: Hx Hypertension - well controlled w/o meds at this time Denies: Hx Aneurysm, Hx Angina, Hx Cardiac Arrest, Hx Congenital Heart Disease, Hx Congestive Heart Failure, Hx Coronary Artery Disease, Hx Deep Vein Thrombosis, Hx Myocardial Infarction GI History: Reports: Hx Gastroesophageal Reflux Disease, Hx Hiatal Hernia History: Denies: Hx Renal Disease Musculoskeletal History: Reports: Other Musculoskeletal History - Weakness, orthopedic surgeries Bilateral Knee Replacement Sensory History: Reports: Hx Cataracts - R eye Denies: Hx Contacts or Glasses, Hx Hearing Aid Opthamlomology History: Reports: Hx Cataracts - R eye Denies: Hx Contacts or Glasses Neurological History: Reports: Hx Dementia - on meds Denies: Hx CVA Psychiatric History: Reports: Hx Anxiety - Surgical History Surgery Procedure, Year, and Place: Bilateral knee replacement, bunion surgery. Hysterectomy Hx Anesthesia Reactions: No Infectious Disease History: No Infectious Disease History: Denies: Traveled Outside the [place] in Last 30 Days - Family History Known Family History: Negative: Cardiac Disease, Hypertension, Diabetes - Social History Occupation: Retired Lives: With Family Alcohol Use: None Hx Substance Use: No Substance Use Type: Reports: None Hx Tobacco Use: No Smoking Status (MU): Never Smoked Tobacco Review of Systems - ROS Summary Review of Systems Summary: LEVEL 5 CAVEAT: ROS LIMITED DUE TO PT CONDITION, DEMENTIA Positive: Chest Pain - s/p fall Positive: Other - pos: L-sided body pain, back pain All Other Systems Reviewed And Are Negative: No Physical Exam - Summary Physical Exam Summary: VITAL SIGNS: Reviewed. GENERAL: Patient is a well-developed and nourished FEMALE who is lying comfortable in the stretcher. Patient is not in any acute respiratory distress. HEAD AND FACE: No signs of trauma. No ecchymosis, hematomas or skull depressions. No sinus tenderness. EYES: PERRLA, EOMI x 2, No injected conjunctiva, no nystagmus. EARS: Hearing grossly intact. Ear canals and tympanic membranes are within normal limits. MOUTH: Oropharynx within normal limits. NECK: Supple, trachea is midline, no adenopathy, no JVD, no carotid bruit, no c- spine tenderness, neck with full ROM. CHEST: Symmetric, no tenderness at palpation LUNGS: Clear to auscultation bilaterally. No wheezing or crackles. CVS: Regular rate and rhythm, S1 and S2 present, no murmurs or gallops appreciated. ABDOMEN: Soft, non-tender. No signs of distention. No rebound, no guarding, and no masses palpated. Bowel sounds are normal. EXTREMITIES: FROM in all major joints, no edema, no cyanosis or clubbing. NEURO: Alert but not oriented. No acute neurological deficits. Speech is normal and follows commands. SKIN: Dry and warm GCS: 14 Triage Information Reviewed: Yes Vital Signs On Initial Exam: Initial Vitals Temp Pulse Resp BP Pulse Ox 97.2 F 94 17 157/110 93 12/18/17 09:45 12/18/17 09:45 12/18/17 09:45 12/18/17 09:45 12/18/17 09:45 Vital Signs Reviewed: Yes Diagnostics - Vital Signs Vital Signs Temp Pulse Resp BP Pulse Ox 12/18/17 09:45 97.2 F 94 17 157/110 93 - Laboratory Result Diagrams: 12/18/17 11:08 12/18/17 10:44 Lab Statement: Any lab studies that have been ordered have been reviewed, and results considered in the medical decision making process. - Radiology CXR Xray Interpretation: Positive (See Comments) - IMPRESSION: LOW LUNG VOLUMES AND SMALL RIGHT BASILAR INFILTRATE MOST CONSISTENT WITH ATELECTASIS. ED provider has reviewed this report. Radiology Interpretation Completed By: Radiologist RIBS BILAT Xray Interpretation: No Acute Changes - IMPRESSION: LIMITED STUDY, NO EVIDENCE FOR FRACTURE. ED provider has reviewed this report. This report is only to be considered final once signed by the Provider(s) as displayed in the "<Electronically Signed by >" field (s). Absence of a signature indicates the report is in a draft status and still needs to be finalized. In the event this document was created by someone other than the signing Provider, the individual initiating the document will be listed in the "Entered by:" or "Dictated by:" solorio. 1 of 1 Radiology Interpretation Completed By: Radiologist - CT BRAIN CT CT Interpretation: No Acute Changes - IMPRESSION: NO ACUTE INTRACRANIAL PATHOLOGY. DIFFUSE INVOLUTIONAL CHANGE WITH CHRONIC SMALL VESSEL ISCHEMIC CHANGES. ED provider has reviewed this report. CT Interpretation Completed By: Radiologist C-SPINE CT Interpretation: No Acute Changes - IMPRESSION: OSTEOPENIA. DEGENERATIVE DISC DISEASE AND OSTEOARTHRITIS. NO ACUTE OSSEOUS INJURY TO THE CERVICAL SPINE. ED provider has reviewed this report. CT Interpretation Completed By: Radiologist - EKG 1038 Cardiac Rate: NL - 95bpm EKG Rhythm: Sinus Rhythm ST Segment: Normal - no ST elevation EKG Interpretation: Low-voltage EKG. EKG Comparison: No Significant Change - from 08/11/17. 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 Patient may have lost her balance putting on her slippers from being seated in bed. Daughter believes patient fell forward onto the wood floor. Pt complains of back pain, CP pain and L-sided pain. Patient usually ambulates with walker. Blood work without any significant abnormality. Head CT impression: No acute pathology. C -spine CT impression: No acute fracture dislocation. Chest x-ray impression: No acute pathology. Rib x-rays bilaterally impression: No acute fracture dislocation. In the ED course the patient resting comfortable in the stretcher. The patient was able to have lunch. At this point I discussed my physical exam and findings with patient's daughter and will be discharged home with follow-up with primary care physician. Patient is hemodynamically stable alert and oriented 3. Patient was referred to the social services designee. - Diagnoses Provider Diagnoses: Accidental fall Discharge - Sign-Out/Discharge Documenting (check all that apply): Patient Departure - DC - Discharge Plan Condition: Stable Disposition: HOME Patient Education Materials: Fall Prevention for Older Adults (ED) Referrals: Miky Shanks [employer]OMOBI[employer] SERVICE ADVISOR [Primary Care Provider] - 3 Days Additional Instructions: Follow up with your primary care provider in 2-3 days. Please return to the ED if you experience new or worsening symptoms. - Billing Disposition and Condition Condition: STABLE Disposition: Home - Attestation Statements Document Initiated by Scribe: Yes Documenting Scribe: Cheli Duffy Provider For Whom Scribe is Documenting (Include Credential): Dr. Mirza Sanchez MD Scribe Attestation: Cheli Bee, scribed for Dr. Mirza Sanchez MD on 12/19/17 at 0819. Scribe Documentation Reviewed: Yes Provider Attestation: The documentation as recorded by the Cheli ocasio accurately reflects the service I personally performed and the decisions made by me, Dr. Mirza Sanchez MD
[2017-12-18 11:17] LABS: EGFR Non-African American 77.7 (>60)
[2017-12-18 11:24] LABS: ABS Basophils 0.1 10^3/ul (0-0.2); ABS Eosinophils 0 10^3/ul (0-0.6); ABS Lymphocytes 1.2 10^3/ul (1.0-4.8); ABS Monocytes 0.6 10^3/ul (0-0.8); ABS Neutrophils 7.7 10^3/ul (1.5-7.7); ABS Nucleated RBC 0 10^3/ul; Eosinophil % 0.2 % (0-6); Hematocrit 49 % (35-47); Hemoglobin 16.6 g/dl (12.0-16.0); Lymphocyte % 12.6 % (25-47); Mean Corpuscular HGB Conc 34 g/dl (31-36); Mean Corpuscular Hemoglobin 33 pg (27-31); Mean Corpuscular Volume 96 fL (80-97); Nucleated Red Blood Cells % 0.1; Platelet Count 242 10^3/ul (150-450); Red Blood Count 5.09 10^6/ul (4.00-5.40); Red Cell Distribution Width 14 % (10.5-15); White Blood Count 9.6 10^3/ul (3.5-10.8)
--- NOTE | 2017-12-18 11:34 | RAD ---
HISTORY: fall COMPARISONS: December 24, 2016 TECHNIQUE: Multiple contiguous axial CT scans were obtained of the head without intravenous contrast. FINDINGS: HEMORRHAGE/INFARCT: There is no hemorrhage or acute infarct. MASSES/SHIFT: There is no mass or shift. EXTRA-AXIAL SPACES: There are no extra-axial fluid collections. SULCI AND VENTRICLES: There is diffuse and proportional enlargement of the sulci and ventricles. CEREBRUM: There is hypoattenuation of the periventricular and subcortical white matter. BRAINSTEM: There are no focal parenchymal abnormalities. CEREBELLUM: There are no focal parenchymal abnormalities. VESSELS: The vessels are grossly normal. PARANASAL SINUSES: The paranasal sinuses are clear. ORBITS: The orbits are unremarkable. BONES AND SOFT TISSUE: No bone or soft tissue abnormalities are noted. OTHER: None IMPRESSION: NO ACUTE INTRACRANIAL PATHOLOGY. DIFFUSE INVOLUTIONAL CHANGE WITH CHRONIC SMALL VESSEL ISCHEMIC CHANGES.
--- NOTE | 2017-12-18 11:39 | RAD ---
HISTORY: fall COMPARISONS: None TECHNIQUE: Multiple contiguous axial CT scans were obtained of the cervical spine without intravenous contrast, with coronal and sagittal multiplanar reformations. FINDINGS: BRAIN: The visualized brain is unremarkable CENTRAL CANAL: Evaluation of the central canal is limited on CT technique, however there is no obvious canalicular mass or epidural hemorrhage. ALIGNMENT: The alignment is normal, without subluxation or dislocation. VERTEBRAL BODIES: There is anterolateral marginal osteophyte formation. There is no displaced fracture. There is a. JOINTS: There is multilevel uncovertebral and facet osteoarthritic change. MUSCULATURE: Unremarkable INTERVERTEBRAL DISCS: There is diffuse loss of intervertebral disc height. AXIAL IMAGES: There is multilevel degenerative disc disease and osteoarthritis, without osseous neural foraminal narrowing or central canal stenosis. SOFT TISSUES: The visualized soft tissues of the neck are unremarkable. The prevertebral fat stripe is preserved. OTHER: None. IMPRESSION: OSTEOPENIA. DEGENERATIVE DISC DISEASE AND OSTEOARTHRITIS. NO ACUTE OSSEOUS INJURY TO THE CERVICAL SPINE
--- NOTE | 2017-12-18 13:39 | RAD ---
INDICATION: Fall. COMPARISON: Comparison is made with a prior chest x-ray study from August 11, 2017. TECHNIQUE: AP and lateral views of the chest were obtained. FINDINGS: The heart appears within normal limits in size. The lungs are underinflated with more focal elevation of the right hemidiaphragm which appears similar to the prior study. There are linear densities at the right lung base most consistent with atelectasis. No pleural effusion or pneumothorax is seen. There appears to be interposition of the colon between the right hemidiaphragm and liver which appears similar to the prior study. IMPRESSION: LOW LUNG VOLUMES AND SMALL RIGHT BASILAR INFILTRATE MOST CONSISTENT WITH ATELECTASIS.
--- NOTE | 2017-12-18 13:41 | RAD ---
INDICATION: Bilateral rib injury. TECHNIQUE: 4 views of both ribs were obtained. The study is limited. The patient was uncooperative for the exam. FINDINGS: No fracture or significant focal osseous abnormality is seen. IMPRESSION: LIMITED STUDY, NO EVIDENCE FOR FRACTURE.
[2017-12-18 16:03] VITALS: BP 152/62
== END 2017-12-18 14:30 | disposition home or self-care (01) ==
LOC: ED 09:34
DX: M54.9 Dorsalgia, unspecified (principal); R07.89 Other chest pain; W19.XXXA Unspecified fall, initial encounter; Y92.9 Unspecified place or not applicable; R91.8 Other nonspecific abnormal finding of lung field; M47.9 Spondylosis, unspecified; F03.90 Unspecified dementia, unspecified severity, without behavioral disturbance, psychotic disturbance, mood disturbance, and anxiety; M85.88 Other specified disorders of bone density and structure, other site; M50.30 Other cervical disc degeneration, unspecified cervical region; I10 Essential (primary) hypertension; E07.9 Disorder of thyroid, unspecified; Z79.899 Other long term (current) drug therapy
CPT/HCPCS: 36415; 70450; 71046; 71110; 72125; 80053; 85025; 93005; 99282